=== PATIENT | male | born 1950 | race Caucasian/White ===

== ENCOUNTER 2019-02-26 13:17 | Emergency (ER) | payer MEDICARE, MEDICAID, SELFPAY ==
[2019-02-26 13:10] VITALS: BP 119/41; PULSE 60; RESP 16; TEMP 36.4; O2SAT 91
--- NOTE | 2019-02-26 13:31 | W.ED.GENAD ---
Discharge Plan Disposition Patient Disposition: HOME Condition: Stable Discharge Details Chief Complaint: Vascular Clinical Impression: Dialysis AV fistula malfunction Primary Care Provider: Nayla Valles ED Provider: Tai Carr Home Meds and New Rx's Prescriptions: Continued metolazone 2.5 MG tablet 2.5 mg PO PRN RF: 0 fluticasone propion-salmeterol [Advair Diskus] 1 EACH blister with device 1 puff Inhalation BID RF: 0 atorvastatin 80 MG tablet 80 mg PO DAILY RF: 0 ipratropium-albuterol 3 ML solution for nebulization 3 ml Inhalation Q6H PRN RF: 0 Lantus U-100 Insulin 100 UNIT/1 ML solution 50 SQ DAILY RF: 0 fexofenadine 60 MG tablet 60 mg PO DAILY RF: 0 metoprolol tartrate 100 MG tablet 100 mg PO BID RF: 0 valsartan 80 MG tablet 80 mg PO DAILY RF: 0 aspirin, buffered 325 MG tablet 325 mg PO DAILY RF: 0 clopidogrel 75 MG tablet 75 mg PO DAILY RF: 0 acetaminophen 650 MG tablet 650 mg PO Q8H PRN RF: 0 levetiracetam [Keppra] 250 MG tablet 250 mg PO BID RF: 0 sodium bicarbonate 650 MG tablet 650 mg PO BID Qty: 2 RF: 0 nitroglycerin [Nitrostat] 0.4 MG tablet, sublingual 0.4 mg Sublingual ONCE RF: 0 docusate sodium 100 MG capsule 200 mg PO DAILY RF: 0 mometasone [Nasonex] 17 GM spray,non-aerosol 2 spry NS DAILY RF: 0 sertraline [Zoloft] 50 MG tablet 50 mg PO BID RF: 0 cholecalciferol (vitamin D3) [Vitamin D3] 1,000 UNIT capsule 1,000 unit PO DAILY RF: 0 Humalog U-100 Insulin 100 UNIT/1 ML cartridge 10 u SQ DAILY RF: 0 dutasteride [Avodart] 0.5 MG capsule 0.5 mg PO DAILY RF: 0 calcium acetate 667 MG capsule 1,334 mg PO TID RF: 0 ESSENTIAL Daily 1 EACH tablet 1 ea PO DAILY RF: 0 Protonix [address] for susp in packet 40 mg PO DAILY RF: 0 nisoldipine 34 MG tablet extended release 24 hr 34 mg PO DAILY RF: 0 Discharge Instructions Additional Instructions: go to [facility] tomorrow at 750am so you can have your access for dialsyis fixed or a new access point placed if you develop high fevers or worsening difficulty breathing return to the emergency department Medical Decision Making 68 yo male with hx of esrd on dialysis /saturday and had recent repair of left arm fistula at [facility] who comes in from dialysis after fistula clotted again. He has no acute problems, denies any pain or other symptoms. He has no thrill in left arm fistula. will check potassium and consult with nephrology at [facility] labs show no acute abnormalities, spoke with Dr. Medina from nephrology at [facility] who will arrange to have another access placed tomorrow at 750am and of pt states she will be able to get him there, no acute reason for hospialization at this time. Care management met with them and they will be d/c'd at 430pm by a wheelchair van Differential Diagnosis Differential Diagnosis: fitula failure HPI General Mode of arrival: EMS. Date/Time Provider Initiated Documentation: 02/26/19 13:31. Limitations to Documentation: no limitations. Information obtained by: patient. History of Present Illness 68 year old M presents to the emergency department with the chief complaint of clotted fistula, described as moderate, and it has been constant. No relieving factors improve symptom(s), No exacerbating factors reported . Patient did receive the following treatments prior to arrival, none Related Data Home Medications Medication Instructions Recorded Confirmed ESSENTIAL Daily 1 ea PO DAILY NS 04/18/15 02/26/19 Humalog U-100 Insulin 10 u SQ DAILY NS 04/18/15 02/26/19 Lantus U-100 Insulin 50 SQ DAILY NS 04/18/15 Protonix 40 mg PO DAILY packet NS 04/18/15 02/26/19 acetaminophen 650 mg PO Q8H PRN NS 04/18/15 02/26/19 aspirin, buffered 325 mg PO DAILY NS 04/18/15 02/26/19 atorvastatin 80 mg PO DAILY tab-cap NS 04/18/15 02/26/19 calcium acetate 1,334 mg PO TID tab-cap NS 04/18/15 02/26/19 cholecalciferol (vitamin D3) 1,000 unit PO DAILY NS 04/18/15 02/26/19 [Vitamin D3] clopidogrel 75 mg PO DAILY tab-cap NS 04/18/15 02/26/19 docusate sodium 200 mg PO DAILY tab-cap NS 04/18/15 02/26/19 dutasteride [Avodart] 0.5 mg PO DAILY tab-cap NS 04/18/15 02/26/19 fexofenadine 60 mg PO DAILY NS 04/18/15 02/26/19 fluticasone propion-salmeterol 1 puff INHALATION BID disk NS 04/18/15 02/26/19 [Advair Diskus] ipratropium-albuterol 3 ml INHALATION Q6H PRN NS 04/18/15 02/26/19 levetiracetam [Keppra] 250 mg PO BID NS 04/18/15 02/26/19 metolazone 2.5 mg PO PRN tab-cap NS 04/18/15 02/26/19 metoprolol tartrate 100 mg PO BID tab-cap NS 04/18/15 02/26/19 mometasone [Nasonex] 2 spry NS DAILY spray NS 04/18/15 02/26/19 nisoldipine 34 mg PO DAILY tab-cap NS 04/18/15 02/26/19 nitroglycerin [Nitrostat] 0.4 mg SUBLINGUAL ONCE NS 04/18/15 02/26/19 sertraline [Zoloft] 50 mg PO BID tab-cap NS 04/18/15 02/26/19 sodium bicarbonate 650 mg PO BID #2 NS 04/18/15 02/26/19 valsartan 80 mg PO DAILY NS 04/18/15 02/26/19 Allergies Allergy/AdvReac Type Severity Reaction Status Date / Time adhesive tape Allergy Unverified 02/26/19 13:13 Iodinated Contrast Media Allergy Unverified 02/26/19 13:13 [Iodinated Contrast Media - IV Dye] General Stated Complaint: Vascular MADELAINE: 3 Review of Systems Review of Systems ROS Unobtainable: All systems reviewed & are unremarkable except as noted in HPI and below Constitutional Constitutional: Denies chills, Denies fever(s) and Denies weakness Eyes Eyes: Denies loss of vision ENT Ears, Nose, Mouth, and Throat: Denies change in voice Cardiovascular Cardiovascular: Denies chest pain and Denies dyspnea Respiratory Respiratory: Denies cough and Denies dyspnea Gastrointestinal Gastrointestinal: Denies abdominal pain, Denies nausea and Denies vomiting Genitourinary Genitourinary: Denies dysuria Musculoskeletal Musculoskeletal: Denies joint swelling Integumentary/Breasts Skin/Breast: Denies rash Neurologic Neurologic: Denies loss of vision and Denies weakness Endocrine Endocrine: Denies heat intolerance PFSH Medical History ASCVD (arteriosclerotic cardiovascular disease) CHF (congestive heart failure) Chronic renal insufficiency, stage V DM (diabetes mellitus) GERD (gastroesophageal reflux disease) Hyperlipidemia Hypertension Seizure disorder Surgical History (Updated 02/26/18 @ 14:37 by [employer]) Coronary Stent Tonsillectomy and adenoidectomy Vasectomy Social History Smoking/Tobacco Use Status: Former Tobacco Use Alcohol Intake: never Substance use type: does not use Exam Const General: no acute distress Orientation: alert HENIN Head: normal to inspection Ears: external ears normal General nose exam: external nose normal Mouth: moist mucous membranes Eyes General: appearance normal, both eyes and all related structures Neck Neck: normal visual inspection Resp Effort & Inspection: normal respiratory effort and able to speak in complete sentences Cardio Rate: regular rate Skin General skin exam: no rashes or lesions noted Neuro General: alert and oriented x3 Extrem General: normal to inspection Psych Mental Status: mental status grossly normal Course Vital Signs Vital signs: Vital Signs Temperature 36.4 C L 02/26/19 13:10 Pulse 60 02/26/19 13:10 Respiratory Rate 16 02/26/19 13:10 Blood Pressure 119/41 L 02/26/19 13:10 Pulse Oximetry 91 L 02/26/19 13:10 Temperature 36.4 C L 02/26/19 13:10 Temperature Source Skin 02/26/19 13:10 Pulse 60 02/26/19 13:10 Respiratory Rate 16 02/26/19 13:10 Respiratory Effort Non-Labored 02/26/19 13:10 Blood Pressure 119/41 L 02/26/19 13:10 Blood Pressure Position Sitting 02/26/19 13:10 Pulse Oximetry 91 L 02/26/19 13:10 Pain Level 0 02/26/19 13:10
[2019-02-26 13:46] LABS: Abs Immature Grans 0.04 k/cumm (0.0-0.09); Absolute Basophil Count 0.05 k/cumm (0.0-0.2); Absolute Lymphocyte Count 1.42 k/cumm (1.2-3.4); Absolute Monocyte Count 1.58 k/cumm (0.11-0.7); Basophils % 0.4; Eosinophils % 2.5; HCT 28.6 % (40.0-50.0); HGB 9.2 g/dL (13.5-17.5); Immature Grans % 0.3; Mean Corp. HGB Concentration 32.2 g/dL (32.0-36.0); Mean Corpuscular Hemoglobin 33.1 pg (27.0-33.0); Mean Corpuscular Volume 102.9 fL (80-95); Mean Platelet Volume 9.6 fL (8.0-11.0); Monocytes % 13.4; Neutrophils % 71.4; Platelet Count 177 x1000/uL (130-400); RBC 2.78 m/cumm (4.50-6.00); RBC Distribution Width 14.1 % (11.8-14.1); White Blood Cell Count 11.82 k/cumm (4.4-10.8)
[2019-02-26 13:50] LABS: Absolute Neutrophil Count 8.44 k/cumm (1.2-6.7)
[2019-02-26 14:00] LABS: ALT 18 U/L (16-63); AST 23 U/L (15-37); Albumin 2.7 g/dL (3.4-5.0); Alkaline Phosphatase 122 U/L (46-116); Anion Gap 9.5 mmol/L (3-11); BUN 63 mg/dL (7-18); Bilirubin, Total 0.3 mg/dL (0.2-1.0); CO2 26.5 mmol/L (21.0-32.0); Calcium 8.8 mg/dL (8.5-10.1); Chloride 93 mmol/L (98-107); Estimated GFR 8.51 (mL/min/1.73m2); Glucose 142 mg/dL (70-100); Magnesium 2.4 mg/dL (1.8-2.4); Potassium 5.4 mmol/L (3.5-5.1); Sodium 129 mmol/L (136-145); Total Protein 6.6 g/dL (6.4-8.2)
[2019-02-26 14:03] LABS: INR 1.1 (0.9-1.1); Prothrombin Time 11.2 sec (9.3-11.0)
[2019-02-26 14:10] LABS: CREATININE 6.52 mg/dL (0.70-1.30)
[2019-02-26 14:12] LABS: Anisocytosis 1+; Diff Comment Diff Reviewed; Macrocytosis 1+; Polychromasia Present
[2019-02-26 14:33] LABS: PTT Activated 24.9 sec (21.0-31.4)
[2019-02-26 15:25] VITALS: BP 136/54; PULSE 68; RESP 12; TEMP 36.3; O2SAT 96
--- NOTE | 2019-02-26 16:03 | CMPROGNOTE_ITS ---
- If Service Date Differs Date of service: 02/26/19 Time of Service: 16:03 Care Management Progress Note S/O: CM met with the patient and his spouse to assist with transportation home. Wilfrid was at Dialysis center today when he was emergent transferred to the Emergency Department. Wilfrid was brought in by ambulance and does not have his wheelchair here at the hospital. His spouse reports his chair was returned home with the transportation company and she has no way to bring him home. CM contacted CTS through [employer] ([place]) and was able to arrange transportation home via wheelchair van/stretcher van through [employer]. [employer] agrees to cover the cost of transport. [facility] can be contacted at [phone]. [employer] transport number is [phone]. [employer] reports they will be here to pick Wilfrid and his spouse up at 1630. Spouse was able to set up transportation for Wilfrid to return to [facility] on Saturday for dialysis at 0730. P: Wilfrid will return home tonight via wheelchair van to [facility]. Transportation has been arranged for him to return home tonight and to his appointment at [facility] in the morning. CM has updated provider and primary nurse with the plan.
--- NOTE | 2019-02-26 16:03 | PDOC.ERCMPRO ---
- If Service Date Differs Date of service: 02/26/19 Time of Service: 16:03 Care Management Progress Note S/O: CM met with the patient and his spouse to assist with transportation home. Wilfrid was at Dialysis center today when he was emergent transferred to the Emergency Department. Wilfrid was brought in by ambulance and does not have his wheelchair here at the hospital. His spouse reports his chair was returned home with the transportation company and she has no way to bring him home. CM contacted CTS through [employer] ([place] [employer]) and was able to arrange transportation home via wheelchair van/stretcher van through [employer]. [employer] agrees to cover the cost of transport. [facility] can be contacted at [phone]. [employer] transport number is [phone]. [employer] reports they will be here to pick Wilfrid and his spouse up at 1630. Spouse was able to set up transportation for Wilfrid to return to [facility] on Saturday for dialysis at 0730. P: Wilfrid will return home tonight via wheelchair van to [facility]. Transportation has been arranged for him to return home tonight and to his appointment at [facility] in the morning. CM has updated provider and primary nurse with the plan.
[2019-02-26 17:09] VITALS: BP 121/42; PULSE 55; TEMP 36.8; O2SAT 96
== END 2019-02-26 17:58 | disposition home or self-care (01) ==
PROVIDERS: Emergency Provider Emergency Medicine; PCP Internal Medicine
DX: T82.590A Other mechanical complication of surgically created arteriovenous fistula, initial encounter (principal); I50.9 Heart failure, unspecified; N18.6 End stage renal disease; I13.0 Hypertensive heart and chronic kidney disease with heart failure and stage 1 through stage 4 chronic kidney disease, or unspecified chronic kidney disease; E11.22 Type 2 diabetes mellitus with diabetic chronic kidney disease; Z99.2 Dependence on renal dialysis
CPT/HCPCS: 36415; 80053; 99283; 83735; 85025; 85610; 85730

== ENCOUNTER 2019-04-25 15:10 | Emergency (ER) | payer MEDICARE, MEDICAID, SELFPAY ==
[2019-04-25] VITALS (36 sets, daily range): BP systolic 139–176; BP diastolic 46–88; PULSE 104–124; RESP 4–30; TEMP 37.1–37.4; O2SAT 91–95
--- NOTE | 2019-04-25 15:41 | NUR.NOTE ---
Nursing Note: pt and family unaware of home meds. attempting to obtain an accurate med list.
[2019-04-25 15:50] LABS: Abs Immature Grans 0.05 k/cumm (0.0-0.09); Absolute Basophil Count 0.03 k/cumm (0.0-0.2); Absolute Lymphocyte Count 0.75 k/cumm (1.2-3.4); Absolute Monocyte Count 1.19 k/cumm (0.11-0.7); Basophils % 0.2; Eosinophils % 1.5; HCT 42.8 % (40.0-50.0); HGB 13.7 g/dL (13.5-17.5); Immature Grans % 0.3; Lactate 3.7 mmol/L (0.6-1.4); Mean Corpuscular Hemoglobin 32.2 pg (27.0-33.0); Mean Corpuscular Volume 100.7 fL (80-95); Mean Platelet Volume 9.8 fL (8.0-11.0); Monocytes % 7.9; Neutrophils % 85.1; Platelet Count 170 x1000/uL (130-400); RBC 4.25 m/cumm (4.50-6.00); RBC Distribution Width 14.9 % (11.8-14.1); White Blood Cell Count 15.07 k/cumm (4.4-10.8)
[2019-04-25] MEDS: Albuterol/Ipratropium 3 ML UPD VIAL (15:51)
[2019-04-25 15:52] LABS: Absolute Eosinophil Count 0.23 k/cumm (0.0-0.7); Absolute Neutrophil Count 12.82 k/cumm (1.2-6.7)
--- NOTE | 2019-04-25 15:52 | ED.GENADUL_ITS ---
Discharge Plan Disposition Patient Disposition: [facility] Condition: Fair Discharge Details Chief Complaint: Fever Clinical Impression: Pneumonia, Fever, ESRD (end stage renal disease) on dialysis Primary Care Provider: Nayla Valles ED Provider: Rachel Epstein Home Meds and New Rx's Prescriptions: No Action metolazone 2.5 MG tablet 2.5 mg PO PRN RF: 0 fluticasone propion-salmeterol [Advair Diskus] 1 EACH blister with device 1 puff Inhalation BID RF: 0 atorvastatin 80 MG tablet 80 mg PO DAILY RF: 0 ipratropium-albuterol 3 ML solution for nebulization 3 ml Inhalation Q6H PRN RF: 0 Lantus U-100 Insulin 100 UNIT/1 ML solution 8 unit SQ DAILY RF: 0 fexofenadine 60 MG tablet 60 mg PO DAILY RF: 0 valsartan 80 MG tablet 80 mg PO DAILY RF: 0 clopidogrel 75 MG tablet 75 mg PO DAILY RF: 0 acetaminophen 650 MG tablet 650 mg PO Q8H PRN RF: 0 levetiracetam [Keppra] 250 MG tablet 250 mg PO BID RF: 0 sodium bicarbonate 650 MG tablet 650 mg PO BID Qty: 2 RF: 0 nitroglycerin [Nitrostat] 0.4 MG tablet, sublingual 0.4 mg Sublingual ONCE RF: 0 docusate sodium 100 MG capsule 200 mg PO DAILY RF: 0 mometasone [Nasonex] 17 GM spray,non-aerosol 2 spry NS DAILY RF: 0 cholecalciferol (vitamin D3) [Vitamin D3] 1,000 UNIT capsule 1,000 unit PO DAILY RF: 0 Humalog U-100 Insulin 100 UNIT/1 ML cartridge 10 u SQ DAILY RF: 0 dutasteride [Avodart] 0.5 MG capsule 0.5 mg PO DAILY RF: 0 calcium acetate 667 MG capsule 1,334 mg PO TID RF: 0 ESSENTIAL Daily 1 EACH tablet 1 ea PO DAILY RF: 0 Protonix [address] for susp in packet 40 mg PO DAILY RF: 0 metoprolol tartrate 50 mg Tablet 50 mg PO HS RF: 0 aspirin [Aspir-81] 81 mg Tablet,Delayed Release (Dr/Ec) 81 mg PO DAILY RF: 0 nisoldipine 17 mg Tablet Extended Release 24 Hr 17 mg PO DAILY AM RF: 0 sertraline [Zoloft] 100 mg Tablet 125 mg PO DAILY AM RF: 0 trazodone 100 mg Tablet 100 mg PO HS RF: 0 sertraline [Zoloft] 25 mg Tablet 25 mg PO DAILY AM RF: 0 sevelamer carbonate [Renvela] 800 mg Tablet 800 mg PO TID RF: 0 Discharge Data Discharge Date/Time-TO BE ENTERED AT DEPARTURE: 04/25/19 19:00 Medical Decision Making <Ale Reyes DO - Last Filed: 04/26/19 08:26> 1530 -- 68-year-old male with a history of coronary artery disease, CHF, end- stage renal disease on dialysis, diabetes, GERD, hypertension, hyperlipidemia who presents from dialysis for fever and chills today. Per dialysis temp 97 and 98. Patient does also admit to a congested cough for the past 4 days. Temp on arrival 98.8. Heart rate tachycardic in the 110s. Oxygen saturation low 90s on room air. He is pleasant and appears nontoxic. He has scattered wheezing throughout. EKG notes a rate of 108, sinus with minimal less than [address] depression in 1, V 5 and V6 but no acute ST elevation. Differential diagnosis includes pneumonia, acute CHF, acute COPD exacerbation, UTI. Will place an IV, small bolus IV fluids, screening labs, lactate, blood cultures, urinalysis as well as chest x-ray and give a DuoNeb and reassess. 1600 --Case endorsed to EDGRADO Ibrahim to follow-up on labs and imaging and final disposition. ECG Data Attestation: I personally reviewed and interpreted this ECG (s) as follows: Interpretation: Rate of 108, sinus, questionable less than [address] depression in 2, V5 through V6. No acute ST elevation. AL 130. QTc 440. QRS 86. <EDGARDO Weber - Last Filed: 04/25/19 19:04> Care transition myself from Dr. Reyes. Please see her initial note and presentation for details. Care transition myself with imaging and labs pending. In brief, patient with complex medical history, received dialysis today, presented for evaluation experiencing fevers and chills. Patient does report that he has had a cough and chest congestion over the past 4 days denies any shortness of breath or chest discomfort. Denies any pain. He is scheduled to have a new right-sided fistula performed on Saturday at [facility]. He still does make small amount of urine. Patient dialysis schedule is Saturday, , Saturday. Contacted by the lab with lactate of 3.7. Patient is received a 250 bolus. White count is 15. Potassium 4.4. Creatinine 4.5. Alk phos elevated at 187. Chest x-ray reviewed by myself, I am concerned for possible pneumonia. Patient I discussed inpatient care, particularly given his lactate and he refuses, wis hes to have outpatient management. He is agreeable to one-time dosing of IV levofloxacin. I will discuss this further with inspector cold working. Patient is clinically appropriate and able to make sound decisions at this point. Discussed the case with Dr. Burch who reiterates my concerns with patient admission with the elevated lactate. He does agree with 750 mg dosing of levofloxacin initially followed by 48-hour dosing. I discussed these concerns with nephrology with the patient he is now agreeable to admission. The patient is a dialysis patient, I will consult with [facility] regarding transfer to their facility. Consulted with Dr. Steinberg at [facility]. We discussed +/- of admission. Mortality rate associated with [facility] patients elevated lactate is what has me most concerned. He agrees to admission, awaiting bed placement for transfer. Patient transferred to [facility] via EMS. HPI <Ale Reyes DO - Last Filed: 04/26/19 08:26> General Mode of arrival: wheelchair . Date/Time Provider Initiated Documentation: 04/25/19 15:11 . Limitations to Documentation: no limitations . Information obtained by: patient . HPI Narrative: Patient is a 68-year-old male with a history of coronary artery disease, CHF, end-stage renal disease on dialysis, diabetes, GERD, hypertension and seizures presents from dialysis for evaluation of fever and chills. Called dialysis center and they state his temperature was 97 and 98 but he had chills. was unaware of a fever. She does state that patient has had a cough with chest congestion over the past 4 da ys. Patient has a history of COPD but denies any new shortness of breath or chest pain. He states his appetite has been good. He is still able to make urine. He has been on dialysis for several years and goes Saturday, and Saturday. He was able to finish his entire dialysis session today. He has been receiving dialysis through central line catheter in chest. He has a left arm fistula which states they are no longer using with plan for new placement of a fistula in the right arm this Saturday at [facility]. Related Data Home Medications Medication Instructions Recorded Confirmed ESSENTIAL Daily 1 ea PO DAILY NS 04/18/15 02/26/19 Humalog U-100 Insulin 10 u SQ DAILY NS 04/18/15 04/25/19 Lantus U-100 Insulin 8 unit SQ DAILY NS 04/18/15 04/25/19 Protonix 40 mg PO DAILY packet NS 04/18/15 04/25/19 acetaminophen 650 mg PO Q8H PRN NS 04/18/15 04/25/19 atorvastatin 80 mg PO DAILY tab-cap NS 04/18/15 04/25/19 calcium acetate 1,334 mg PO TID tab-cap NS 04/18/15 04/25/19 cholecalciferol (vitamin D3) 1,000 unit PO DAILY NS 04/18/15 04/25/19 [Vitamin D3] clopidogrel 75 mg PO DAILY tab-cap NS 04/18/15 04/25/19 docusate sodium 200 mg PO DAILY tab-cap NS 04/18/15 04/25/19 dutasteride [Avodart] 0.5 mg PO DAILY tab-cap NS 04/18/15 02/26/19 fexofenadine 60 mg PO DAILY NS 04/18/15 02/26/19 fluticasone propion-salmeterol 1 puff INHALATION BID disk NS 04/18/15 04/25/19 [Advair Diskus] ipratropium-albuterol 3 ml INHALATION Q6H PRN NS 04/18/15 04/25/19 levetiracetam [Keppra] 250 mg PO BID NS 04/18/15 04/25/19 metolazone 2.5 mg PO PRN tab-cap NS 04/18/15 02/26/19 mometasone [Nasonex] 2 spry NS DAILY spray NS 04/18/15 02/26/19 nitroglycerin [Nitrostat] 0.4 mg SUBLINGUAL ONCE NS 04/18/15 04/25/19 sodium bicarbonate 650 mg PO BID #2 NS 04/18/15 02/26/19 valsartan 80 mg PO DAILY NS 04/18/15 02/26/19 aspirin [Aspir-81] 81 mg PO DAILY 04/25/19 04/25/19 metoprolol tartrate 50 mg PO HS 04/25/19 04/25/19 nisoldipine 17 mg PO DAILY AM 04/25/19 04/25/19 sertraline [Zoloft] 25 mg PO DAILY AM 04/25/19 04/25/19 sertraline [Zoloft] 125 mg PO DAILY AM 04/25/19 04/25/19 sevelamer carbonate [Renvela] 800 mg PO TID 04/25/19 04/25/19 trazodone 100 mg PO HS 04/25/19 04/25/19 Allergies Allergy/AdvReac Type Severity Reaction Status Date / Time adhesive tape Allergy Unverified 04/25/19 16:12 Iodinated Contrast Media Allergy Unverified 04/25/19 16:12 [Iodinated Contrast Media - IV Dye] General Stated Complaint: Fever MADELAINE: 3 Review of Systems <Ael Reyes DO - Last Filed: 04/26/19 08:26> All systems reviewed & are unremarkable except as noted in HPI and below Constitutional Constitutional: Reports as per HPI, Reports chills and Reports fever(s) Eyes Eyes: Denies blurry vision ENT Ears, Nose, Mouth, and Throat: Denies dizziness, Denies sore throat and Denies throat swelling Cardiovascular Cardiovascular: Denies chest pain and Denies dyspnea Respiratory Respiratory: Reports cough and Denies dyspnea Gastrointestinal Gastrointestinal: Denies abdominal pain, Denies diarrhea and Denies vomiting Genitourinary Genitourinary: Denies hematuria and Denies dysuria Musculoskeletal Musculoskeletal: Denies back pain and Denies numbness Integumentary/Breasts Skin/Breast: Denies lesions and Denies rash Neurologic Neurologic: Denies dizziness, Denies focal weakness and Denies numbness Allergic/Immunologic Allergic/Immunologic: Denies throat swelling PFSH <Ale Reyes DO - Last Filed: 04/26/19 08:26> Medical History ASCVD (arteriosclerotic cardiovascular disease) CHF (congestive heart failure) Chronic renal insufficiency, stage V DM (diabetes mellitus) GERD (gastroesophageal reflux disease) Hyperlipidemia Hypertension Seizure disorder Surgical History Coronary Stent Tonsillectomy and adenoidectomy Vasectomy Social History Smoking/Tobacco Use Status: Former Tobacco Use Alcohol Intake: never Substance use type: does not use Do you feel safe at home: Yes Do you feel safe in your relationship?: Yes Additional Social history: pt lives at home with his Exam <Ale Reyes DO - Last Filed: 04/26/19 08:26> Const General: cooperative, no acute distress and ill appearing chronically HENMT Head: normal to inspection Face and sinus: normal facial exam Eyes General: appearance normal, both eyes and all related structures EOM: EOM intact bilaterally Neck Neck: normal visual inspection and No submandibular swelling Lymphatic: no lymphadenopathy noted Chest Chest: normal inspection of the chest, no tenderness and other (central line catheter noted left upper chest.) Resp Effort & Inspection: normal respiratory effort and able to speak in complete sentences Auscultation: wheezes scattered wheezes Cardio Rate: tachycardic Rhythm: regular rhythm GI Inspection: normal to inspection, distended and obesity Palpation: soft, not firm, not rigid and nontender Auscultation: normal bowel sounds Back/Spine/Pelvis Thoracic/Lumbar Spine: thoracic and lumbar spine normal to inspection Skin General skin exam: no rashes or lesions noted Neuro General: alert, awake and oriented x3 Cognition: normal cognition Speech: speech normal Motor: muscle tone normal throughout Sensory Exam: no sensory deficits noted Extrem General: full ROM Other: Right AKA. No left lower extremity edema. Pulsatile fistula left AC fossa. Psych Appearance: grossly normal Mental Status: mental status grossly normal Speech and Movement: speech and movement normal Affect: normal affect Course <Ale Reyes DO - Last Filed: 04/26/19 08:26> Vital Signs Vital signs: Vital Signs Temperature 98.8 F 04/25/19 15:18 Pulse 112 H 04/25/19 15:18 Respiratory Rate 22 04/25/19 15:18 Blood Pressure 140/66 04/25/19 15:18 Pulse Oximetry 93 L 04/25/19 15:18 Temperature 98.8 F 04/25/19 15:18 Temperature Source Tympanic 04/25/19 15:18 Pulse 112 H 04/25/19 15:18 Respiratory Rate 22 04/25/19 15:18 Respiratory Effort 04/25/19 15:28 Blood Pressure 140/66 04/25/19 15:18 Blood Pressure Position Sitting 04/25/19 15:18 Pulse Oximetry 95 04/25/19 15:51 Oxygen Delivery Method Room Air 04/25/19 15:51 Oxygen Flow Rate 0 04/25/19 15:51 Lab/Test Results Lab/Test Results: Laboratory Tests Range/Units 04/25/19 15:42 Lactate (0.6-1.4) mmol/L 3.7 H* Sign Out <Ale Reyes DO - Last Filed: 04/26/19 08:26> Sign Out Data: Sign Out Comment: Case endorsed to follow-up on labs, imaging and final disposition. Last updated by Ale Reyes DO at 04/25/19 16:05
[2019-04-25 16:06] LABS: ALT 19 U/L (16-63); AST 20 U/L (15-37); Albumin 3.4 g/dL (3.4-5.0); Alkaline Phosphatase 187 U/L (46-116); BUN 38 mg/dL (7-18); Bilirubin, Total 0.4 mg/dL (0.2-1.0); Calcium 9.5 mg/dL (8.5-10.1); Chloride 98 mmol/L (98-107); Glucose 233 mg/dL (74-106); Magnesium 2.3 mg/dL (1.8-2.4); Potassium 4.4 mmol/L (3.5-5.1); Sodium 138 mmol/L (136-145); Total Protein 8.1 g/dL (6.4-8.2)
[2019-04-25 16:08] LABS: Estimated GFR 13.06 (mL/min/1.73m2); Troponin I < 0.05 ng/Ml (<0.06)
[2019-04-25] MEDS: methylPREDNISolone SUCC 125 MG VIAL IVP (16:09)
[2019-04-25] MEDS: Normal Saline 250 ML IV (16:14)
--- NOTE | 2019-04-25 16:22 | DI.RAD_ITS ---
EXAM: XR CHEST 2V PA LATERAL INDICATION: cough, fever, chills, r/o pneumonia. COMPARISON: No exams were available for comparison TECHNIQUE: 2D digital imaging was performed. FINDINGS: The lungs are not well inflated on either view. The patient is status post CABG. There is a double- lumen catheter in place. There is a small right pleural effusion. There are increased densities at both lung bases which could represent pneumonia versus atelectasis. IMPRESSION: Limited exam. Bibasilar atelectasis versus pneumonia.
--- NOTE | 2019-04-25 16:39 | DI.VRAD_ITS ---
PROCEDURE INFORMATION: Exam: XR Chest, 2 Views Exam date and time: 04/25/2019 4:27 PM Age: 68 years old Clinical history: Other: Cough, fever, chills, R/O pneumonia TECHNIQUE: Imaging protocol: XR of the chest Views: 2 views. COMPARISON: No relevant prior studies available. FINDINGS: Tubes, catheters and devices: Left subclavian central line in place with the tip near the SVC/RA junction. Lungs: Low lung volumes. Bilateral infiltrates more concentrated at the lung bases. Pleural space: Right pleural effusion. Heart/Mediastinum: Unremarkable. No cardiomegaly. Bones/joints: Possible right lateral rib fractures. Sternotomy wires in place. IMPRESSION: 1. Bilateral pneumonia. 2. Right pleural effusion. Dictated and Authenticated by: Jolly Lnadon MD. Ordering:JOEL Aguilera MD
[2019-04-25] MEDS: levoFLOXacin 750 MG/150 ML BAG 100 MG IVPB (17:09)
== END 2019-04-25 19:00 | disposition short-term general hospital (02) ==
PROVIDERS: Physician Assistant; Emergency Provider Physician Assistant; PCP Internal Medicine
DX: J18.9 Pneumonia, unspecified organism (principal); R50.9 Fever, unspecified; N18.6 End stage renal disease; Z99.2 Dependence on renal dialysis; E11.22 Type 2 diabetes mellitus with diabetic chronic kidney disease; I13.2 Hypertensive heart and chronic kidney disease with heart failure and with stage 5 chronic kidney disease, or end stage renal disease; I50.9 Heart failure, unspecified; J44.9 Chronic obstructive pulmonary disease, unspecified; Z87.891 Personal history of nicotine dependence; Z79.4 Long term (current) use of insulin
CPT/HCPCS: 36410; 36415; 80053; 87040; 87449; 93005; 94640; 96361; 96365; 96366; 99285; 71046; 81003; 83605; 83735; 84484; 85025; 93010; J1956; J2930; J7620

== ENCOUNTER 2020-08-16 14:41 | Emergency (ER) | payer MEDICARE, MEDICAID, SELFPAY ==
[2020-08-16 14:57] VITALS: BP 130/51; PULSE 105; RESP 22; TEMP 36.9; O2SAT 94
--- NOTE | 2020-08-16 15:15 | DI.RAD_ITS ---
EXAM: XR PORTABLE CHEST AP CLINICAL HISTORY: cough, recent pneumonia TECHNIQUE: COMPARISON: CR,XR XR CHEST 2V PA LATERAL from 04/25/2019 FINDINGS: Note is again made of a double lumen left subclavian catheter in position, the tip of which lies near junction of SVC and right atrium. There is cardiomegaly. There is no gross interval change in appe arance of the lungs in comparison with examination of April 2019 pulmonary scarring most likely. No definite new focal consolidation. IMPRESSION: Chronic pulmonary changes, no gross acute process. Cardiomegaly again noted. RADIATION DOSE DELIVERED: Total DLP
[2020-08-16 16:02] LABS: Bilirubin Negative (Negative); Blood Trace-intact (Negative); Clarity Clear (Clear); Glucose Negative (Negative); Ketones Negative (Negative); Leukocyte Esterase Negative (Negative); Nitrite Negative (Negative); Specific Gravity 1.025 (1.005-1.025); Urobilinogen 0.2 EU/dL (Up TO 0.2)
[2020-08-16 16:11] LABS: Bacteria Many HPF (Negative); C & S Indicated? No/Sq. Contamination; Casts Negative LPF (Negative); Crystals Negative HPF (Negative); Epithelial Cells Many HPF (Negative); Mucus Negative (Negative); RBC Negative HPF (0-2)
--- NOTE | 2020-08-16 16:17 | W.ED.GENAD ---
Discharge Plan Disposition Patient Disposition: HOME Condition: Good Discharge Details Clinical Impression: Chills, Leukocytosis Primary Care Provider: Nayla Valles ED Provider: Jonny Vick Home Meds and New Rx's Prescriptions: Continued metolazone 2.5 MG tablet 2.5 mg PO PRN RF: 0 fluticasone propion-salmeterol [Advair Diskus] 1 EACH blister with device 1 puff Inhalation BID RF: 0 atorvastatin 80 MG tablet 80 mg PO DAILY RF: 0 ipratropium-albuterol 3 ML solution for nebulization 3 ml Inhalation Q6H PRN RF: 0 Lantus U-100 Insulin 100 UNIT/1 ML solution 8 unit SQ DAILY RF: 0 fexofenadine 60 MG tablet 60 mg PO DAILY RF: 0 valsartan 80 MG tablet 80 mg PO DAILY RF: 0 clopidogrel 75 MG tablet 75 mg PO DAILY RF: 0 acetaminophen 650 MG tablet 650 mg PO Q8H PRN RF: 0 levetiracetam [Keppra] 250 MG tablet 250 mg PO BID RF: 0 sodium bicarbonate 650 MG tablet 650 mg PO BID Qty: 2 RF: 0 nitroglycerin [Nitrostat] 0.4 MG tablet, sublingual 0.4 mg Sublingual ONCE RF: 0 docusate sodium 100 MG capsule 200 mg PO DAILY RF: 0 mometasone [Nasonex] 17 GM spray,non-aerosol 2 spry NS DAILY RF: 0 cholecalciferol (vitamin D3) [Vitamin D3] 1,000 UNIT capsule 1,000 unit PO DAILY RF: 0 Humalog U-100 Insulin 100 UNIT/1 ML cartridge 10 u SQ DAILY RF: 0 dutasteride [Avodart] 0.5 MG capsule 0.5 mg PO DAILY RF: 0 calcium acetate(phosphat bind) 667 MG capsule 1,334 mg PO TID RF: 0 ESSENTIAL Daily 1 EACH tablet 1 ea PO DAILY RF: 0 Protonix [address] for susp in packet 40 mg PO DAILY RF: 0 metoprolol tartrate 50 mg Tablet 50 mg PO HS RF: 0 aspirin [Aspir-81] 81 mg Tablet,Delayed Release (Dr/Ec) 81 mg PO DAILY RF: 0 nisoldipine 17 mg Tablet Extended Release 24 Hr 17 mg PO DAILY AM RF: 0 sertraline [Zoloft] 100 mg Tablet 125 mg PO DAILY AM RF: 0 trazodone 100 mg Tablet 100 mg PO HS RF: 0 sertraline [Zoloft] 25 mg Tablet 25 mg PO DAILY AM RF: 0 sevelamer carbonate [Renvela] 800 mg Tablet 800 mg PO TID RF: 0 Discharge Instructions Instructions: Leukocytosis (ED) Additional Instructions: At this time your chest x-ray shows no new pneumonia. Your labs are reassuring aside for your elevated white count. As we have discussed together and with [facility] at this time is appropriate to go home however it is extremely important that you monitor your symptoms closely and if you develop any repeat chills, fever, worsening cough or shortness of breath you need to return immediately for reassessment. If you notice any worsening of your symptoms, or any new symptoms such as vomiting, diarrhea, fever, chills, shortness of breath, chest pain, numbness, weakness, or fainting , please return immediately to the emergency department for reevaluation. Please follow up with your primary care provider as soon as possible for reassessment and reevaluation. As always, it was a pleasure participating in your medical care today. Referrals: Nayla Valles [Primary Care Provider] - Medical Decision Making 70-year-old male with a past medical history of diabetes, lower extremity amputation, seizure disorder, hypertension, high cholesterol, chronic renal disease on dialysis, congestive heart failure who presents today for fever and chills. He was down at dialysis today when he experienced chills, and had an elevated temperature. However upon his arrival here he had no fever. The patient was recently discharged from [facility] a week ago, he had infection, pneumonia, and metabolic encephalopathy at that time. He was discharged with Augmentin and finished taking that a few days ago. He does admit to a persistent cough after discharge but denies any significant worsening of this. He denies any chest pain shortness of breath no abdominal pain. He did have one episode of vomiting earlier but this was isolated on the phone. Patient denies any other complaints. No other modifying factors. He states currently he feels fine. Exam demonstrates mild crackles in the bases for the lungs but no other significant abnormalities. Patient's blood pressure stable, heart rate normal on its own. We will evaluate for infectious etiologies, get a chest x-ray, Covid swab, basic labs and blood cultures and lactate. Monitor closely and reassess. If the patient does require admission he will not be a candidate for admission here secondary to his dialysis needs. 7:30 PM There is a prolonged delay in the lab secondary to hemolysis, and other complicating factors. Labs have finally returned, patient does have a white count of 19 with a left shift which is elevated compared to his discharge from [facility]. However the lactate is only 1.5. Electrolytes are unremarkable. Creatinine is expectedly high at 3.7. Urinalysis shows no evidence of infection. Chest x-ray read by radiology shows no acute process, no evidence of new infiltrate. The patient states that he feels well, and does not feel ill. He remains with a normal heart rate and blood pressure here, he remains afebrile in the ED. The white count is probably the most atypical component. We will reach out to [facility] as he was recently discharged. Patient has expressed interest in going home. 9 PM [facility] the [facility]. We reviewed the labs, imaging, urinalysis work-up. With the patient's current status, he has notable hemodynamic stability, and no clear source of infectious etiology and for that matter no clear source of current infection that would be detectable in conjunction with the patient generalized state of feeling well and feeling like he can go home, however it does feel that this would be a reasonable course as well. Respecting the patient's wishes, and in the current clinical context with no clear evidence of significant infectious etiology patient will be discharged home. Spent a long time discussing with the patient and his significant other the importance of close monitoring for clinical signs or symptoms that would be concerning for infection, as well as for symptoms for which to immediately return. In addition to this the blood cultures will be followed and patient will be contacted by medical staff if they do return positive. Patient will be discharged home. I have extensively reviewed the treatment plan and discharge instructions with the patient and their family. I have addressed all patient concerns at this time. The patient and family was made aware of what symptoms to monitor for that would warrant a return to the emergency department. Discussed the plan with the patient and family, they demonstrate verbal understanding and agreement with our assessment and plan at this time. The documentation in this chart was dictated using [employer] dictation software. Please excuse any dictation errors. FINDINGS: Note is again made of a double lumen left subclavian catheter in position, the tip of which lies near junction of SVC and right atrium. There is cardiomegaly. There is no gross interval change in appearance of the lungs in comparison with examination of April 2019 pulmonary scarring most likely. No definite new focal consolidation. IMPRESSION: Chronic pulmonary changes, no gross acute process. Cardiomegaly again noted. HPI General Date/Time Provider Initiated Documentation: 08/16/20 15:02. HPI Narrative: 70-year-old male with a past medical history of diabetes, lower extremity amputation, seizure disorder, hypertension, high cholesterol, chronic renal disease on dialysis, congestive heart failure who presents today for fever and chills. He was down at dialysis today when he experienced chills, and had an elevated temperature. However upon his arrival here he had no fever. The patient was recently discharged from [facility] a week ago, he had infection, pneumonia, and metabolic encephalopathy at that time. He was discharged with Augmentin and finished taking that a few days ago. He does admit to a persistent cough after discharge but denies any significant worsening of this. He denies any chest pain shortness of breath no abdominal pain. He did have one episode of vomiting earlier but this was isolated on the phone. Patient denies any other complaints. No other modifying factors. He states currently he feels fine. Related Data Home Medications Medication Instructions Recorded Confirmed ESSENTIAL Daily 1 ea PO DAILY NS 04/18/15 02/26/19 Humalog U-100 Insulin 10 u SQ DAILY NS 04/18/15 04/25/19 Lantus U-100 Insulin 8 unit SQ DAILY NS 04/18/15 04/25/19 Protonix 40 mg PO DAILY packet NS 04/18/15 04/25/19 acetaminophen 650 mg PO Q8H PRN NS 04/18/15 04/25/19 atorvastatin 80 mg PO DAILY tab-cap NS 04/18/15 04/25/19 calcium acetate(phosphat bind) 1,334 mg PO TID tab-cap NS 04/18/15 04/25/19 cholecalciferol (vitamin D3) 1,000 unit PO DAILY NS 04/18/15 04/25/19 [Vitamin D3] clopidogrel 75 mg PO DAILY tab-cap NS 04/18/15 04/25/19 docusate sodium 200 mg PO DAILY tab-cap NS 04/18/15 04/25/19 dutasteride [Avodart] 0.5 mg PO DAILY tab-cap NS 04/18/15 02/26/19 fexofenadine 60 mg PO DAILY NS 04/18/15 02/26/19 fluticasone propion-salmeterol 1 puff INHALATION BID disk NS 04/18/15 04/25/19 [Advair Diskus] ipratropium-albuterol 3 ml INHALATION Q6H PRN NS 04/18/15 04/25/19 levetiracetam [Keppra] 250 mg PO BID NS 04/18/15 04/25/19 metolazone 2.5 mg PO PRN tab-cap NS 04/18/15 02/26/19 mometasone [Nasonex] 2 spry NS DAILY spray NS 04/18/15 02/26/19 nitroglycerin [Nitrostat] 0.4 mg SUBLINGUAL ONCE NS 04/18/15 04/25/19 sodium bicarbonate 650 mg PO BID #2 NS 04/18/15 02/26/19 valsartan 80 mg PO DAILY NS 04/18/15 02/26/19 aspirin [Aspir-81] 81 mg PO DAILY 04/25/19 04/25/19 metoprolol tartrate 50 mg PO HS 04/25/19 04/25/19 nisoldipine 17 mg PO DAILY AM 04/25/19 04/25/19 sertraline [Zoloft] 25 mg PO DAILY AM 04/25/19 04/25/19 sertraline [Zoloft] 125 mg PO DAILY AM 04/25/19 04/25/19 sevelamer carbonate [Renvela] 800 mg PO TID 04/25/19 04/25/19 trazodone 100 mg PO HS 04/25/19 04/25/19 Allergies Allergy/AdvReac Type Severity Reaction Status Date / Time adhesive tape Allergy Unverified 08/16/20 15:07 Iodinated Contrast Media Allergy Unverified 08/16/20 15:07 [Iodinated Contrast Media - IV Dye] General Stated Complaint: Fever MADELAINE: 3 Review of Systems All systems reviewed & are unremarkable except as noted in HPI and below [facility] Medical History (Updated 08/16/20 @ 20:51 by Jonny Vick DO) ASCVD (arteriosclerotic cardiovascular disease) CHF (congestive heart failure) Chronic renal insufficiency, stage V DM (diabetes mellitus) GERD (gastroesophageal reflux disease) Hyperlipidemia Hypertension Seizure disorder Surgical History Coronary Stent Tonsillectomy and adenoidectomy Vasectomy Social History Smoking/Tobacco Use Status: Former Tobacco Use Smoking risk assessment performed?: Yes Alcohol Intake: never Substance use type: does not use Do you feel safe at home: Yes Do you feel safe in your relationship?: Yes Additional Social history: pt lives at home with his Exam Narrative Exam Narrative: 1.Const: Well-nourished, Well-developed, appearing stated age 2.Eyes: PERRL, no conjunctival injection, and symmetrical lids. 3.ENT: Atraumatic external nose and ears. Moist MM. Neck: Symmetric, trachea midline, No thyromegaly. 4.CVS: +S1/S2, No murmurs or gallops. Peripheral pulses 2+ and equal in all extremities. Brisk capillary refill in all extremities. 5.RESP: Unlabored respiratory effort. Minimal crackles in the bases bilaterally. No wheezes or rhonchi. 6.GI: Soft, Nontender/Nondistended, No hepatosplenomegaly. No guarding or rebound. 7.MSK: Normocephalic/Atraumatic, Extremities w/o deformity or ttp. Bilateral lower extremity amputee. 8.Skin: Warm, Dry. No rashes or lesions. 9.Neuro: security compliance specialist II-XII grossly intact. Sensation grossly intact, no focal neurologic deficits. 10.Psych: (AAO) x3. Appropriate mood and affect Course Vital Signs Vital signs: Vital Signs Temperature 36.9 C 08/16/20 14:57 Pulse 105 H 08/16/20 14:57 Respiratory Rate 22 08/16/20 14:57 Blood Pressure 130/51 L 08/16/20 14:57 Pulse Oximetry 94 08/16/20 14:57 Temperature 36.9 C 08/16/20 14:57 Temperature Source Skin 08/16/20 14:57 Pulse 105 H 08/16/20 14:57 Respiratory Rate 22 08/16/20 14:57 Blood Pressure 130/51 L 08/16/20 14:57 Blood Pressure Position Sitting 08/16/20 14:57 Pulse Oximetry 94 08/16/20 14:57 Oxygen Delivery Method Nasal Cannula 08/16/20 14:57 Oxygen Flow Rate 2 08/16/20 14:57 Pain Level 0 08/16/20 14:57 Comment 08/16/20 14:57 Lab/Test Results Lab/Test Results: 08/16/20 15:19 Blood Blood Culture - Pending 08/16/20 15:19 Blood Blood Culture - Pending Laboratory Tests Range/Units 08/16/20 08/16/20 15:40 15:40 Urine Color (Yellow) Yellow Urine Clarity (Clear) Clear Urine pH (5-8) 5.0 Ur Specific [place] (1.005-1.025) 1.025 Urine Protein (Negative) mg/dL >=300 H Urine Ketones (Negative) mg/dL Negative Urine Blood (Negative) Trace-intact H Urine Nitrite (Negative) Negative Urine Bilirubin (Negative) Negative Urine Urobilinogen (Up TO 0.2) EU/dL 0.2 Ur Leukocyte Esterase (Negative) Negative Urine RBC (0-2) HPF Negative Urine WBC (0-5) HPF 5-10 Ur Epithelial Cells (Negative) HPF Many Urine Crystals (Negative) HPF Negative Urine Bacteria (Negative) HPF Many Urine Casts (Negative) LPF Negative Urine Mucus (Negative) Negative Urine Other (Negative) Many yeast Ur Culture Indicated? No/sq. contamination Urine Glucose (Negative) mg/dL Negative COVID-19 Source Nasopharyx
[2020-08-16 16:37] LABS: COVID-19 PCR Negative (Negative)
[2020-08-16 18:28] LABS: ALT 13 U/L (16-63); AST 16 U/L (15-37); Albumin 3.4 g/dL (3.4-5.0); Alkaline Phosphatase 110 U/L (46-116); Anion Gap 9.7 mmol/L (3-11); BUN 45 mg/dL (7-18); Bilirubin, Total 0.7 mg/dL (0.2-1.0); CO2 31.3 mmol/L (21.0-32.0); Calcium 9.9 mg/dL (8.5-10.1); Chloride 101 mmol/L (98-107); Estimated GFR 16.28 (mL/min/1.73m2); Glucose 118 mg/dL (74-106); Potassium 3.6 mmol/L (3.5-5.1); Sodium 142 mmol/L (136-145); Total Protein 8.1 g/dL (6.4-8.2)
[2020-08-16 18:30] LABS: CREATININE 3.7 mg/dL (0.70-1.30)
[2020-08-16 18:55] LABS: Abs Immature Grans 0.08 10^3/uL (0.0-0.06); Absolute Eosinophil Count 0.04 10^3/uL (0.0-0.7); Absolute Lymphocyte Count 1.01 10^3/uL (1.2-3.4); Absolute Neutrophil Count 17.04 10^3/uL (1.2-6.7); Basophils % 0.4; Eosinophils % 0.2; HCT 37.2 % (40.0-50.0); HGB 11.7 g/dL (13.5-17.5); Immature Grans % 0.4; Lymphocytes % 5.2; MCH 33.8 pg (27.0-33.0); MCHC 31.5 % (32.0-36.0); MCV 107.5 fL (80-95); Neutrophils % 87.8; Nucleated RBC 0 %; Platelet Count 155 10^3/uL (130-400); RBC 3.46 10^6/uL (4.36-5.78); RDW 15.7 % (11.8-14.1); RDW-SD 62.6 fL; WBC 19.41 10^3/uL (4.4-10.8)
[2020-08-16 19:00] LABS: Lactate 1.5 mmol/L (0.6-1.4)
[2020-08-16 19:04] LABS: Absolute Basophil Count 0.08 10^3/uL (0.0-0.2); Absolute Monocyte Count 1.16 10^3/uL (0.1-0.8)
[2020-08-16 19:07] LABS: Diff Comment RBC Morph Reviewed; Macrocytosis 3+
== END 2020-08-16 22:28 | disposition home or self-care (01) ==
PROVIDERS: Emergency Provider Student in an Organized Health Care Education/Training Program; PCP Internal Medicine
DX: D72.829 Elevated white blood cell count, unspecified (principal); I12.0 Hypertensive chronic kidney disease with stage 5 chronic kidney disease or end stage renal disease; N18.6 End stage renal disease; Z99.2 Dependence on renal dialysis; E11.22 Type 2 diabetes mellitus with diabetic chronic kidney disease; Z03.818 Encounter for observation for suspected exposure to other biological agents ruled out
CPT/HCPCS: 36415; 80053; 87040; 87635; 99284; 71045; 81003; 81015; 83605; 85025; 87086; 99285

== ENCOUNTER 2021-01-17 13:41 | Inpatient (IN) | payer MEDICARE, MEDICAID, SELFPAY ==
[2021-01-17] VITALS (95 sets, daily range): BP systolic 98–146; BP diastolic 42–97; PULSE 71–100; RESP 10–36; TEMP 36.5–37.2; O2SAT 85–100
--- NOTE | 2021-01-17 13:30 | RT.EKG_ITS ---
APPROVED REPORT Exam: Resting ECG Reason for Exam: unresponsive Patient Location: E HR:71 bpm ECG Measurements Heart Rate 71 AXIS AK 167 P 79 QRSd 111 QRS 70 QT 432 T 67 QTc 470 Conclusion Sinus rhythm Probable left atrial enlargement..
--- NOTE | 2021-01-17 13:45 | DI.CT_ITS ---
Exam(s) CT HEAD WO EXAM: CT HEAD WO CLINICAL HISTORY: unresponsive at diaysis. TECHNIQUE: Imaging Protocol: Axial computed tomography images with coronal and sagittal reformatted images were created and reviewed COMPARISON: No exams were available for comparison FINDINGS: Ventricles and Extra axial spaces: Enlarged lateral ventricles. Hemorrhage: None. Cerebral parenchyma: moderate atrophy. No mass or acute infarct visible. Midline shift: None. Brainstem/Cerebellum: Normal. Calvarium: Normal. Visualized Paranasal sinuses/Mastoids: Minimal mucous in the sphenoid sinuses. Soft Tissues: Unremarkable. IMPRESSION: Atrophy. No acute abnormality. RADIATION DOSE DELIVERED: 824.68mGy.cm Total DLP DATA REPOSITORY: All CT scans at this facility are submitted to the National Radiology Data Registry (NRDR) Dose Index Registry (DIR) with the [employer] (ACR). RADIATION OPTIMIZATION: All CT scans at this facility use at least one of these dose optimization te chniques: automated exposure control; mA and/or kV adjustment per patient size (includes targeted exa ms where dose is matched to clinical indication); or iterative reconstruction.
--- NOTE | 2021-01-17 13:45 | DI.RAD_ITS ---
Exam(s) XR PORTABLE CHEST AP EXAM: XR PORTABLE CHEST AP CLINICAL HISTORY: ms change, rhonchi TECHNIQUE: 2D digital imaging was performed. COMPARISON: CR,XR XR CHEST 2V PA LATERAL from 04/25/2019 CR XR PORTABLE CHEST AP from 08/16/2020. FINDINGS: Exam is limited by semi-upright positioning and underpenetration. The right costophrenic angle has b een [place] from view. There is stable cardiomegaly. A right subclavian catheter is unchanged in position. Sternal wires a nd mediastinal clips are noted. areas of increased density are again noted at the right lower lobe as well as a linear area in the left mid lung. Superimposed pneumonia cannot be excluded. IMPRESSION: Extremely limited exam. Increased densities at the lung bases which could indicate pneumonia. Clini will correlation is recommended. DATA REPOSITORY: RADIATION DOSE DELIVERED:
--- NOTE | 2021-01-17 13:49 | W.ED.GENAD ---
Discharge Plan Disposition Patient Disposition: [facility] INPATIENT Condition: Improving Discharge Details Clinical Impression: Pneumonia, Hypercarbia, Altered mental status Primary Care Provider: Nayla Valles ED Provider: Lalito Patterson Home Meds and New Rx's Prescriptions: No Action metolazone 2.5 MG tablet 2.5 mg PO PRN RF: 0 fluticasone propion-salmeterol [Advair Diskus] 1 EACH blister with device 1 puff Inhalation BID RF: 0 atorvastatin 80 MG tablet 80 mg PO DAILY RF: 0 ipratropium-albuterol 3 ML solution for nebulization 3 ml Inhalation Q6H PRN RF: 0 Lantus U-100 Insulin 100 UNIT/1 ML solution 2 unit SQ DAILY RF: 0 fexofenadine 60 MG tablet 60 mg PO DAILY RF: 0 valsartan 80 MG tablet 80 mg PO DAILY RF: 0 clopidogrel 75 MG tablet 75 mg PO DAILY RF: 0 acetaminophen 650 MG tablet 650 mg PO Q8H PRN RF: 0 levetiracetam [Keppra] 250 MG tablet 250 mg PO BID RF: 0 sodium bicarbonate 650 MG tablet 650 mg PO BID Qty: 2 RF: 0 nitroglycerin [Nitrostat] 0.4 MG tablet, sublingual 0.4 mg Sublingual ONCE RF: 0 docusate sodium 100 MG capsule 200 mg PO DAILY RF: 0 mometasone [Nasonex] 17 GM spray,non-aerosol 2 spry NS DAILY RF: 0 cholecalciferol (vitamin D3) [Vitamin D3] 1,000 UNIT capsule 1,000 unit PO DAILY RF: 0 Humalog U-100 Insulin 100 UNIT/1 ML cartridge 10 u SQ TIDWMEAL RF: 0 dutasteride [Avodart] 0.5 MG capsule 0.5 mg PO DAILY RF: 0 calcium acetate(phosphat bind) 667 MG capsule 1,334 mg PO TID RF: 0 ESSENTIAL Daily 1 EACH tablet 1 ea PO DAILY RF: 0 pantoprazole [Protonix] [address] for susp in packet 40 mg PO DAILY RF: 0 gabapentin 400 mg capsule RF: 0 gabapentin 100 mg capsule RF: 0 midodrine 10 mg tablet RF: 0 metoprolol tartrate 50 mg Tablet 12.5 mg PO BID RF: 0 aspirin [Aspir-81] 81 mg Tablet,Delayed Release (Dr/Ec) 81 mg PO DAILY RF: 0 nisoldipine 17 mg Tablet Extended Release 24 Hr 17 mg PO DAILY AM RF: 0 sertraline [Zoloft] 100 mg Tablet 125 mg PO DAILY AM RF: 0 trazodone 100 mg Tablet 100 mg PO HS RF: 0 sertraline [Zoloft] 25 mg Tablet 25 mg PO DAILY AM RF: 0 sevelamer carbonate [Renvela] 800 mg Tablet 800 mg PO TID RF: 0 Medical Decision Making This is a 70-year-old male diabetic, bilateral lower extremity amputee with end-stage renal disease who is on 3 days a week hemodialysis. EMS was called the dialysis center after the patient completed a full run. He was noted to have approximately 3 minutes of guppy breathing associated with change in mental status while at dialysis. His glucose was noted to be in the 140s. No seizure-like activity was noted. When paramedics arrived the patient had diffuse and coarse rhonchi throughout his lung vidales with associated room air hypoxia to the mid 80%. He was placed on oxygen and transported to ED. Patient is reported to have a history of recurrent pneumonias. The patient is reported to be a full code. He lives in [place], [place] with his Tere (ph) [phone]. He is fully vaccinated against COvid 19. He arrives here on supplemental oxygen, afebrile with blood pressure 130/62. He has a gag reflex and will respond to painful stimuli but is not verbal. Patient placed on a clinical research monitor, IV access established, referred for stat noncontrast CT scan of the head, chest x-ray. Labs: Initial ABG with pH 7.34, PCO2 52, PO2 64. Cell count is white blood cell count 16 but chronically elevated, hematocrit 35, platelets 235, left shift present with ANC of 13.6, again chronically elevated in this patient. Electrolytes are reassuring, lactic acid 1.6. Troponin negative. Patient does make approximately 150 cc of urine per day and urinalysis is pending. Rapid nasal Covid is negative. Chest x-ray: Reveals stable cardiomegaly, unchanged right subclavian catheter. Right lower lobe increased density and linear density in the left midlung. Increased densities at the lung bases and left midlung may represent pneumonia. CT head: atrophy, no hemorrhage or mass. Patient placed on BiPAP in order to blow off his hypercarbia. After initiation, he has clearing of mental status and starts to respond to conversational voice. Repeat blood gas obtained and essentially normalized; pH 7.4, PCO2 42, PO2 74. Patient given loading dose of Levaquin. Patient also given evening dose of Keppra as this may represent possible seizure at dialysis earlier today. The case was discussed with [facility] who are unable to accept transfer at this time, also discussed with [facility] who state they are at capacity with exception of neurosurgical & cardiac emergencies and also unable to accept the patient in transfer. As the patient had dialysis today, does make daily urine, I did discuss the case. I discussed the current circumstances with the patient's . She understands he is currently in the ER awaiing disposition. She states she wishes to have a brief trial of being full code but would not want prolonged life support. HPI General Mode of arrival: EMS. Date/Time Provider Initiated Documentation: 01/17/21 13:59. Information obtained by: EMS. History of Present Illness 70 year old M presents to the emergency department with the chief complaint of Unresponsive at dialysis, described as moderate, and is localized to the head. Patient reports no radiation. Patient started experiencing this minute(s) and it has been constant. No relieving factors improve symptom(s), No exacerbating factors reported . Patient notes cough and other (Reported to have 3 minutes of change to breathing at dialysis). Patient did receive the following treatments prior to arrival, none Related Data Home Medications Medication Instructions Recorded Confirmed ESSENTIAL Daily 1 ea PO DAILY NS 04/18/15 02/26/19 Humalog U-100 Insulin 10 u SQ TIDWMEAL NS 04/18/15 04/25/19 Lantus U-100 Insulin 2 unit SQ DAILY NS 04/18/15 04/25/19 acetaminophen 650 mg PO Q8H PRN NS 04/18/15 01/17/21 atorvastatin 80 mg PO DAILY tab-cap NS 04/18/15 01/17/21 calcium acetate(phosphat bind) 1,334 mg PO TID tab-cap NS 04/18/15 04/25/19 cholecalciferol (vitamin D3) 1,000 unit PO DAILY NS 04/18/15 04/25/19 [Vitamin D3] clopidogrel 75 mg PO DAILY tab-cap NS 04/18/15 01/17/21 docusate sodium 200 mg PO DAILY tab-cap NS 04/18/15 01/17/21 dutasteride [Avodart] 0.5 mg PO DAILY tab-cap NS 04/18/15 02/26/19 fexofenadine 60 mg PO DAILY NS 04/18/15 02/26/19 fluticasone propion-salmeterol 1 puff INHALATION BID disk NS 04/18/15 01/17/21 [Advair Diskus] ipratropium-albuterol 3 ml INHALATION Q6H PRN NS 04/18/15 01/17/21 levetiracetam [Keppra] 250 mg PO BID NS 04/18/15 01/17/21 metolazone 2.5 mg PO PRN tab-cap NS 04/18/15 02/26/19 mometasone [Nasonex] 2 spry NS DAILY spray NS 04/18/15 02/26/19 nitroglycerin [Nitrostat] 0.4 mg SUBLINGUAL ONCE NS 04/18/15 01/17/21 pantoprazole [Protonix] 40 mg PO DAILY packet NS 04/18/15 01/17/21 sodium bicarbonate 650 mg PO BID #2 NS 04/18/15 01/17/21 valsartan 80 mg PO DAILY NS 04/18/15 02/26/19 aspirin [Aspir-81] 81 mg PO DAILY 04/25/19 01/17/21 metoprolol tartrate 12.5 mg PO BID 04/25/19 04/25/19 nisoldipine 17 mg PO DAILY AM 04/25/19 01/17/21 sertraline [Zoloft] 25 mg PO DAILY AM 04/25/19 01/17/21 sertraline [Zoloft] 125 mg PO DAILY AM 04/25/19 01/17/21 sevelamer carbonate [Renvela] 800 mg PO TID 04/25/19 01/17/21 trazodone 100 mg PO HS 04/25/19 01/17/21 gabapentin 01/17/21 01/17/21 gabapentin 01/17/21 01/17/21 midodrine mg 01/17/21 01/17/21 Allergies Allergy/AdvReac Type Severity Reaction Status Date / Time adhesive tape Allergy Unverified 01/17/21 14:46 Iodinated Contrast Media Allergy Unverified 01/17/21 14:46 [Iodinated Contrast Media - IV Dye] General MADELAINE: 3 Review of Systems Unobtainable due to mental condition and Unobtainable due to mental status [facility] Medical History (Updated 01/17/21 @ 19:22 by Lalito Patterson MD) ASCVD (arteriosclerotic cardiovascular disease) CHF (congestive heart failure) Chronic renal insufficiency, stage V DM (diabetes mellitus) GERD (gastroesophageal reflux disease) Hyperlipidemia Hypertension Seizure disorder Surgical History Coronary Stent Tonsillectomy and adenoidectomy Vasectomy Social History Smoking/Tobacco Use Status: Former Tobacco Use Smoking risk assessment performed?: Yes Alcohol Intake: never Substance use type: does not use Do you feel safe at home: Yes Do you feel safe in your relationship?: Yes Additional Social history: pt lives at home with his Exam Narrative Exam Narrative: GEN: Somnolent, responds to painful stimulation HEAD: Normocephalic, atraumatic ENT: Mucous membranes dry, gag reflex intact, oropharynx unremarkable, External ear exam unremarkable EYES: PERRL, EOMI NECK: Full ROM, no MERRILL, no menigismus CHEST/RESP: Diffuse coarse rhonchi. Left upper chest port clean dry and intact CARDIOVASCULAR: Distant, regular. 2+ Rad pulse bilateral ABDOMEN: Soft, nontender, no mass. +Bowel sounds, indwelling Casanova catheter. EXT: Bilateral [id number] amputation Neuro: Somnolent, localizes painful stimuli Psych: Unable to assess Course Lab/Test Results Lab/Test Results: 01/17/21 13:47 Blood Blood Culture - Pending 01/17/21 13:47 Blood Blood Culture - Pending
[2021-01-17 14:23] LABS: BE 3 mmol/L (-2-3); HCO3 28 mmol/L (22-26); pCO2 52 mmHg (35-45); pH 7.34 (7.35-7.45); pO2 64 mmHg (80-105); sO2 89 % (95-98); tCO2 26 mmol/L (23-27)
[2021-01-17 14:29] LABS: FIO2L 2 L; Site Left Radial
[2021-01-17 14:31] LABS: Abs Immature Grans 0.07 10^3/uL (0.0-0.06); Absolute Lymphocyte Count 0.88 10^3/uL (1.2-3.4); Absolute Monocyte Count 1.06 10^3/uL (0.1-0.8); Basophils % 0.6; Eosinophils % 1.7; HCT 35.6 % (40.0-50.0); HGB 11.3 g/dL (13.5-17.5); Immature Grans % 0.4; Lymphocytes % 5.5; MCH 32.7 pg (27.0-33.0); MCHC 31.7 % (32.0-36.0); MCV 102.9 fL (80-95); MPV 9.9 fL (8.0-11.0); Monocytes % 6.6; Neutrophils % 85.2; Nucleated RBC 0 %; Platelet Count 235 10^3/uL (130-400); RBC 3.46 10^6/uL (4.36-5.78); RDW 13.8 % (11.8-14.1); RDW-SD 52.1 fL; WBC 16.04 10^3/uL (4.4-10.8)
[2021-01-17 14:32] LABS: Source Nasal/Nares
[2021-01-17 14:32] LABS: Absolute Eosinophil Count 0.27 10^3/uL (0.0-0.7); Absolute Neutrophil Count 13.67 10^3/uL (1.2-6.7)
[2021-01-17 15:18] LABS: Lactate 1.6 mmol/L (0.6-1.4)
[2021-01-17 15:29] LABS: COVID-19 PCR Negative (Negative)
[2021-01-17 15:41] LABS: ALT 15 U/L (16-63); AST 21 U/L (15-37); Albumin 3.1 g/dL (3.4-5.0); Alkaline Phosphatase 232 U/L (46-116); BUN 67 mg/dL (7-18); Bilirubin, Total 0.4 mg/dL (0.2-1.0); Calcium 9.7 mg/dL (8.5-10.1); Chloride 99 mmol/L (98-107); Estimated GFR 14.88 (mL/min/1.73m2); Glucose 170 mg/dL (74-106); Potassium 4.2 mmol/L (3.5-5.1); Sodium 137 mmol/L (136-145); Total Protein 10.3 g/dL (6.4-8.2); Troponin I < 0.05 ng/mL (<0.06)
[2021-01-17 15:56] LABS: Procalcitonin 0.5 ng/mL
[2021-01-17 16:17] LABS: BE 1 mmol/L (-2-3); HCO3 26 mmol/L (22-26); pCO2 42 mmHg (35-45); pO2 74 mmHg (80-105); sO2 95 % (95-98); tCO2 24 mmol/L (23-27)
[2021-01-17 16:19] LABS: FIO2 30 %; Site Left Radial
--- NOTE | 2021-01-17 16:28 | NUR.NOTE ---
Addendum entered by Cj Aleman RN 01/17/21 16:29: Patient has indwelling gupta Original Note: 1628 patient more alert Bipap remains on. Patient nods yes no to questions. Urine sent to lab from [facility].
[2021-01-17 16:45] LABS: Bilirubin Negative (Negative); Blood Large (Negative); Clarity Turbid (Clear); Glucose Negative (Negative); Ketones Negative (Negative); Leukocyte Esterase Small (Negative); Nitrite Negative (Negative); Urobilinogen 0.2 EU/dL (Up TO 0.2); pH 5.5 (5-8)
[2021-01-17] MEDS: levoFLOXacin 750 MG/150 ML BAG 100 MG IVPB (16:46)
[2021-01-17 16:58] LABS: C & S Indicated? Yes; WBC >50 HPF (0-5)
[2021-01-17] MEDS: LORazepam 2 MG/ML VIAL 0.5 MG IVP (17:36)
--- NOTE | 2021-01-17 17:54 | NUR.NOTE ---
1740 patient's called, patient is speaking few words at a time. Denies pain. Placed on oxygen mask by Respiratory.
[2021-01-17] MEDS: levETIRAcetam 500 MG in Normal Saline 100 ML 400 MG IVPB (18:04)
--- NOTE | 2021-01-17 19:06 | NUR.NOTE ---
1700 oral care provided x 2.
[2021-01-17 19:12] LABS: Troponin I < 0.05 ng/mL (<0.06)
--- NOTE | 2021-01-17 20:01 | HPE_ITS ---
Date of service: 01/17/21 Time of Service: 20:01 Assessment and Plan Assessment and plan (1) Hypercarbia: Start date: 01/17/21 Status: Acute Assessment and plan: This is a 70-year-old gentleman with end-stage renal disease on 3 days a week hemodialysis who is a full code though appeared to indicate that she would not want prolonged support. He would not awake fully at the time of my exam and his baseline is unknown. His vital signs have stabilized with BiPAP and his hypercarbia has resolved with BiPAP the patient on O2 supplementation. He has a history of seizure disorder and was given an extra dose of Keppra as well as being treated for his pneumonia which may be recurrent and possibly aspiration with this to be monitored closely. If any needs to be renally dosed. Patient's CODE STATUS should be reviewed. Supportive care with treatment of pneumonia and watch for recurrence CO2 retention with BiPAP as needed. Patient is not improving and wishes to continue full code, transfer to tertiary care center with hemodialysis capabilities would be indicated within the next 48 hours. If he improves he could be placed on oral Levaquin with reassessment of Keppra dosing for seizure disorder. (2) Pneumonia: Start date: 01/17/21 Status: Acute Assessment and plan: By x-ray with patient being given Levaquin renally dosed. Continue to monitor respiratory status and oxygenation. Qualifiers: Laterality: bilateral Lung location: lower lobe of lung Pneumonia type: due to unspecified organism Qualified Code(s): J18.9 - Pneumonia, unspecified organism (3) Altered mental status: Status: Acute Assessment and plan: By history the patient's baseline is better than seen upon admission. He is stable but not appearing to awaken for much activity. He does appear chronically ill with an acute decompensation. Long-term CODE STATUS needs to be addressed. PT and OT need to evaluate patient for baseline activity with transfers at home to be done safely. Patient does not appear to be able to support self or transfer self by my exam. There is some evidence of chronic deconditioning. Qualifiers: Altered mental status type: delirium Qualified Code(s): R41.0 - Disorientation, unspecified (4) Chronic renal insufficiency, stage V: Status: Chronic Assessment and plan: Continue hemodialysis 3 days weekly with patient just receiving dialysis on the day of admission. Reassess need for transfer patient is not improving to go home. Patient has always have an elevated lactic acid and creatinine appears to be stable. Patient does have some urinary output daily. (5) Seizure disorder: Status: Chronic Assessment and plan: Continue Keppra with increased dose upon admission and consider checking level in the morning. History of Present Illness History of Present Illness Chief Complaint: Altered mental status in dialysis unit Narrative: ED report: This is a 70-year-old male diabetic, bilateral lower extremity amputee with end-stage renal disease who is on 3 days a week hemodialysis. EMS was called the dialysis center after the patient completed a full run. He was noted to have approximately 3 minutes of guppy breathing associated with change in mental status while at dialysis. His glucose was noted to be in the 140s. No seizure-like activity was noted. When paramedics arrived the patient had diffuse and coarse rhonchi throughout his lung vidales with associated room air hypoxia to the mid 80%. He was placed on oxygen and transported to ED. Patient is reported to have a history of recurrent pneumonias. The patient is reported to be a full code. He lives in [place], [place] with his Tere () [phone]. He is fully vaccinated against COvid 19. He arrives here on supplemental oxygen, afebrile with blood pressure 130/62. He has a gag reflex and will respond to painful stimuli but is not verbal. Patient placed on a laboratory monitor, IV access established, referred for stat noncontrast CT scan of the head, chest x-ray. Labs: Initial ABG with pH 7.34, PCO2 52, PO2 64. Cell count is white blood cell count 16 but chronically elevated, hematocrit 35, platelets 235, left shift present with ANC of 13.6, again chronically elevated in this patient. Electrolytes are reassuring, lactic acid 1.6. Troponin negative. Patient does make approximately 150 cc of urine per day and urinalysis is pending. Rapid nasal Covid is negative. Chest x-ray: Reveals stable cardiomegaly, unchanged right subclavian catheter. Right lower lobe increased density and linear density in the left midlung. Increased densities at the lung bases and left midlung may represent pneumonia. CT head: atrophy, no hemorrhage or mass. Patient placed on BiPAP in order to blow off his hypercarbia. After initiation, he has clearing of mental status and starts to respond to conversational voice. Repeat blood gas obtained and essentially normalized; pH 7.4, PCO2 42, PO2 74. Patient given loading dose of Levaquin. Patient also given evening dose of Keppra as this may represent possible seizure at dialysis earlier today. The case was discussed with [facility] who are unable to accept transfer at this time, also discussed with [facility] who state they are at capacity with exception of neurosurgical & cardiac emergencies and also unable to accept the patient in transfer. As the patient had dialysis today, does make daily urine, I did discuss the case. I discussed the current circumstances with the patient's . She understands he is currently in the ER awaiing disposition. She states she wishes to have a brief trial of being full code but would not want prolonged life support. This is a 70-year-old male patient who was not able to offer further history at the time of my exam. His vital signs have stabilized after the above the ED evaluation and patient remained somewhat obtunded according to the nurse but responsive to verbal and tactile stimuli enough to awaken and attempt swallowing. He did not appear to be choking. He was slightly agitated and withdrawn during my exam. 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 He had adequate oxygenation on O2 supplementation. He continued to have rhonchorous breathing but no problem clearing upper airways with cough. He appears to be at risk for aspiration and thought he may have aspirated during his episode. He denies any seizure activity with increased Keppra dosing in the ED. Review of Systems Narrative: 13 point review of systems otherwise unrevealing or unable to obtain with patient's altered mental status. was not available at the time of my exam. COUNTS INCLUDE 234 BEDS AT THE [facility] Medical History (Updated 01/18/21 @ 12:37 by Josh Crocker) ASCVD (arteriosclerotic cardiovascular disease) CHF (congestive heart failure) Chronic renal insufficiency, stage V DM (diabetes mellitus) GERD (gastroesophageal reflux disease) Hyperlipidemia Hypertension Seizure disorder Surgical History Coronary Stent Tonsillectomy and adenoidectomy Vasectomy Social History Smoking/Tobacco Use Status: Former Tobacco Use Smoking risk assessment performed?: Yes Alcohol Intake: never Substance use type: does not use Do you feel safe at home: Yes Do you feel safe in your relationship?: Yes Additional Social history: pt lives at home with his Meds Allergies and Home Medications Allergies Allergy/AdvReac Type Severity Reaction Status Date / Time adhesive tape Allergy Unverified 01/17/21 14:46 Iodinated Contrast Media Allergy Unverified 01/17/21 14:46 [Iodinated Contrast Media - IV Dye] Home Medications Medication Instructions Recorded Confirmed Type ESSENTIAL Daily 1 ea PO DAILY NS 04/18/15 02/26/19 History Humalog U-100 Insulin 10 u SQ TIDWMEAL NS 04/18/15 04/25/19 History Lantus U-100 Insulin 4 unit SQ DAILY NS 04/18/15 04/25/19 History acetaminophen 650 mg PO Q8H PRN NS 04/18/15 01/17/21 History atorvastatin 80 mg PO DAILY tab-cap NS 04/18/15 01/17/21 History calcium acetate(phosphat bind) 1,334 mg PO TID tab-cap NS 04/18/15 04/25/19 History cholecalciferol (vitamin D3) 1,000 unit PO DAILY NS 04/18/15 04/25/19 History [Vitamin D3] clopidogrel 75 mg PO DAILY tab-cap NS 04/18/15 01/17/21 History docusate sodium 200 mg PO DAILY tab-cap NS 04/18/15 01/17/21 History dutasteride [Avodart] 0.5 mg PO DAILY tab-cap NS 04/18/15 01/18/21 History fexofenadine 60 mg PO DAILY NS 04/18/15 02/26/19 History fluticasone propion-salmeterol 1 puff INHALATION BID disk NS 04/18/15 01/17/21 History [Advair Diskus] ipratropium-albuterol 3 ml INHALATION Q6H PRN NS 04/18/15 01/17/21 History levetiracetam [Keppra] 250 mg PO BID NS 04/18/15 01/17/21 History metolazone 2.5 mg PO PRN tab-cap NS 04/18/15 01/18/21 History mometasone [Nasonex] 2 spry NS DAILY spray NS 04/18/15 02/26/19 History nitroglycerin [Nitrostat] 0.4 mg SUBLINGUAL ONCE NS 04/18/15 01/17/21 History pantoprazole [Protonix] 40 mg PO DAILY packet NS 04/18/15 01/17/21 History sodium bicarbonate 650 mg PO BID #2 NS 04/18/15 01/17/21 History valsartan 80 mg PO DAILY NS 04/18/15 01/18/21 History aspirin [Aspir-81] 81 mg PO DAILY 04/25/19 01/17/21 History metoprolol tartrate 12.5 mg PO BID 04/25/19 01/18/21 History nisoldipine 17 mg PO DAILY AM 04/25/19 01/17/21 History sertraline [Zoloft] 25 mg PO DAILY AM 04/25/19 01/17/21 History sertraline [Zoloft] 125 mg PO DAILY AM 04/25/19 01/17/21 History sevelamer carbonate [Renvela] 800 mg PO TID 04/25/19 01/17/21 History trazodone 100 mg PO HS 04/25/19 01/17/21 History gabapentin 01/17/21 01/17/21 History gabapentin 01/17/21 01/17/21 History midodrine mg 01/17/21 History Exam Narrative Exam Narrative: General: Patient appears much older than stated age, he appears chronically ill, lying in bed with head onto the right but responded to tactile and verbal stimuli but not with any meeting. Attempt to open and to open his eyes. At rest he appears in no acute distress. He appears diffusely diaphoretic with dark skin which feels doughy. HEENT: Normocephalic, coarsened facial features, eyes with pupils equal and reactive light symmetrically with extraocular movement intact examined with passive head movement. Sclera anicteric. Oropharynx with dry mucosa and poor dentition. Neck: Supple without JVD. Back: Kyphotic posture with patient not able to sit up for exam. Decreased range of motion. Lungs: Fair aeration with expiratory effort with diffuse expiratory rhonchi none focalizing coarse crackles and slightly increased expiratory phase. No d ullness to percussion. No focal egophony. Heart: Regular rate and rhythm with no murmurs gallops appreciated. Abdomen: Scaphoid contour, soft nontender to palpation with no palpable hepatosplenomegaly. Genitalia/rectal: Exam deferred. Patient has Casanova catheter in place. This is draining dark small amount of urine. Extremities: Bilateral AKA stumps appear to have atrophic muscle and no open sor es. Nurse reports sacral stage II ulcer. Peripheral pulses decreased. No cyanosis, clubbing or gross edema. Skin: Dark-colored appearing to be tanned, moist with doughy texture diffusely and decreased turgor. Neuro: Cranial nerves II through XII appear to be grossly intact, no focalizing motor deficits with patient obtunded. Psych: Flat affect and patient possibly delirious with baseline unknown. He is not answering questions appropriately. No abnormal thought processes manifested. Remote and recent memory untestable. Results Imaging Imaging Studies: EXAM: XR PORTABLE CHEST AP CLINICAL HISTORY: ms change, rhonchi TECHNIQUE: 2D digital imaging was performed. COMPARISON: CR,XR XR CHEST 2V PA LATERAL from 04/25/2019 CR XR PORTABLE CHEST AP from 08/16/2020. FINDINGS: Exam is limited by semi-upright positioning and underpenetration. The right costophrenic angle has been Coned from view. There is stable cardiomegaly. A right subclavian catheter is unchanged in position. Sternal wires and mediastinal clips are noted. areas of increased density are again noted at the right lower lobe as well as a linear area in the left mid lung. Superimposed pneumonia cannot be excluded. IMPRESSION: Extremely limited exam. Increased densities at the lung bases which could indic ate pneumonia. Clinical correlation is recommended. Labs Result diagrams: 01/18/21 06:12 01/18/21 06:12 Labs: Laboratory Results - last 24 hr 01/17/21 01/17/21 01/17/21 13:47 13:53 13:53 WBC 16.04 H RBC 3.46 L Hgb 11.3 L Hct 35.6 L MCV 102.9 H MCH 32.7 MCHC 31.7 L RDW 13.8 Plt Count 235 MPV 9.9 Immature Gran % 0.4 Neutrophils % 85.2 Lymphocytes % 5.5 Monocytes % 6.6 Eosinophils % 1.7 Basophils % 0.6 Nucleated RBC % 0 Absolute Neutrophils 13.67 H Absolute Lymphocytes 0.88 L Absolute Monocytes 1.06 H Absolute Eosinophils 0.27 Absolute Basophils 0.10 ABG Sample Site ABG pH ABG pCO2 ABG pO2 ABG HCO3 ABG Total CO2 ABG O2 Saturation ABG Base Excess VBG Lactate Oxygen Liter Flow FiO2 Sodium Cancelled Potassium Cancelled Chloride Cancelled Carbon Dioxide Cancelled Anion Gap Cancelled BUN Cancelled Creatinine Cancelled Estimated GFR/1.73 m2 Cancelled Glucose Cancelled Calcium Cancelled Total Bilirubin Cancelled AST Cancelled ALT Cancelled Alkaline Phosphatase Cancelled Troponin I Total Protein Cancelled Albumin Cancelled Procalcitonin Cancelled Urine Color Urine Clarity Urine pH Ur Specific Colt Urine Protein Urine Ketones Urine Blood Urine Nitrite Urine Bilirubin Urine Urobilinogen Ur Leukocyte Esterase Urine RBC Urine WBC Ur Epithelial Cells Urine Crystals Urine Bacteria Urine Mucus Ur Culture Indicated? Urine Glucose COVID-19 Source SARS-CoV-2 (PCR) 01/17/21 01/17/21 01/17/21 14:15 14:15 14:35 WBC RBC Hgb Hct MCV MCH MCHC RDW Plt Count MPV Immature Gran % Neutrophils % Lymphocytes % Monocytes % Eosinophils % Basophils % Nucleated RBC % Absolute Neutrophils Absolute Lymphocytes Absolute Monocytes Absolute Eosinophils Absolute Basophils ABG Sample Site Left Radial ABG pH 7.34 L ABG pCO2 52 H ABG pO2 64 L ABG HCO3 28 H ABG Total CO2 26 ABG O2 Saturation 89 L ABG Base Excess 3 VBG Lactate Cancelled Oxygen Liter Flow 2 FiO2 Sodium Potassium Chloride Carbon Dioxide Anion Gap BUN Creatinine Estimated GFR/1.73 m2 Glucose Calcium Total Bilirubin AST ALT Alkaline Phosphatase Troponin I Total Protein Albumin Procalcitonin Urine Color Urine Clarity Urine pH Ur Specific Colt Urine Protein Urine Ketones Urine Blood Urine Nitrite Urine Bilirubin Urine Urobilinogen Ur Leukocyte Esterase Urine RBC Urine WBC Ur Epithelial Cells Urine Crystals Urine Bacteria Urine Mucus Ur Culture Indicated? Urine Glucose COVID-19 Source Nasal/Nares SARS-CoV-2 (PCR) Negative 01/17/21 01/17/21 01/17/21 15:05 15:05 15:05 WBC RBC Hgb Hct MCV MCH MCHC RDW Plt Count MPV Immature Gran % Neutrophils % Lymphocytes % Monocytes % Eosinophils % Basophils % Nucleated RBC % Absolute Neutrophils Absolute Lymphocytes Absolute Monocytes Absolute Eosinophils Absolute Basophils ABG Sample Site ABG pH ABG pCO2 ABG pO2 ABG HCO3 ABG Total CO2 ABG O2 Saturation ABG Base Excess VBG Lactate 1.6 H Oxygen Liter Flow FiO2 Sodium 137 Potassium 4.2 Chloride 99 Carbon Dioxide 29.0 Anion Gap 9.0 BUN 67 H Creatinine 4.0 H* Estimated GFR/1.73 m2 14.88 Glucose 170 H Calcium 9.7 Total Bilirubin 0.4 AST 21 ALT 15 L Alkaline Phosphatase 232 H Troponin I < 0.05 Total Protein 10.3 H Albumin 3.1 L Procalcitonin 0.5 Urine Color Urine Clarity Urine pH Ur Specific Colt Urine Protein Urine Ketones Urine Blood Urine Nitrite Urine Bilirubin Urine Urobilinogen Ur Leukocyte Esterase Urine RBC Urine WBC Ur Epithelial Cells Urine Crystals Urine Bacteria Urine Mucus Ur Culture Indicated? Urine Glucose COVID-19 Source SARS-CoV-2 (PCR) 01/17/21 01/17/21 01/17/21 16:12 16:20 18:45 WBC RBC Hgb Hct MCV MCH MCHC RDW Plt Count MPV Immature Gran % Neutrophils % Lymphocytes % Monocytes % Eosinophils % Basophils % Nucleated RBC % Absolute Neutrophils Absolute Lymphocytes Absolute Monocytes Absolute Eosinophils Absolute Basophils ABG Sample Site Left Radial ABG pH 7.40 ABG pCO2 42 ABG pO2 74 L ABG HCO3 26 ABG Total CO2 24 ABG O2 Saturation 95 ABG Base Excess 1 VBG Lactate Oxygen Liter Flow BIPAP 10/5 FiO2 30 Sodium Potassium Chloride Carbon Dioxide Anion Gap BUN Creatinine Estimated GFR/1.73 m2 Glucose Calcium Total Bilirubin AST ALT Alkaline Phosphatase Troponin I < 0.05 Total Protein Albumin Procalcitonin Urine Color Straw Urine Clarity Turbid Urine pH 5.5 Ur Specific Colt 1.020 Urine Protein >=300 H Urine Ketones Negative Urine Blood Large H Urine Nitrite Negative Urine Bilirubin Negative Urine Urobilinogen 0.2 Ur Leukocyte Esterase Small H Urine RBC Not Applicable Urine WBC >50 H Ur Epithelial Cells Not Applicable Urine Crystals Not Applicable Urine Bacteria Not Applicable Urine Mucus Not Applicable Ur Culture Indicated? Yes Urine Glucose Negative COVID-19 Source SARS-CoV-2 (PCR) Last Vital Signs Temp 36.5 C 01/17/21 13:44 Pulse 90 01/17/21 19:00 Resp 19 01/17/21 19:10 BP 113/70 01/17/21 19:00 Pulse Ox 98 01/17/21 19:10
[2021-01-17] MEDS: Sodium Bicarbonate 650 MG TAB PO (22:23)
[2021-01-17] MEDS: traZODone 100 MG TAB PO (22:23)
[2021-01-17] MEDS: levETIRAcetam 250 MG TAB PO (22:23)
[2021-01-18] VITALS (103 sets, daily range): BP systolic 112–129; BP diastolic 47–73; PULSE 66–89; RESP 10–22; TEMP 36.5–37.2; O2SAT 87–100
[2021-01-18] MEDS: Sertraline 25 MG TAB PO (06:16)
[2021-01-18 06:38] LABS: Abs Immature Grans 0.04 10^3/uL (0.0-0.06); Absolute Basophil Count 0.06 10^3/uL (0.0-0.2); Absolute Monocyte Count 1.21 10^3/uL (0.1-0.8); Basophils % 0.5; Eosinophils % 3.6; HGB 10.2 g/dL (13.5-17.5); Immature Grans % 0.3; Lymphocytes % 9.5; MCH 32.1 pg (27.0-33.0); MCHC 30.9 % (32.0-36.0); MCV 103.8 fL (80-95); MPV 9.9 fL (8.0-11.0); Monocytes % 9.8; Neutrophils % 76.3; Nucleated RBC 0 %; Platelet Count 215 10^3/uL (130-400); RBC 3.18 10^6/uL (4.36-5.78); RDW 13.9 % (11.8-14.1); RDW-SD 53.1 fL; WBC 12.37 10^3/uL (4.4-10.8)
[2021-01-18 06:42] LABS: Absolute Eosinophil Count 0.45 10^3/uL (0.0-0.7); Absolute Lymphocyte Count 1.18 10^3/uL (1.2-3.4); Absolute Neutrophil Count 9.44 10^3/uL (1.2-6.7)
[2021-01-18 07:06] LABS: ALT 10 U/L (16-63); AST 16 U/L (15-37); Albumin 2.6 g/dL (3.4-5.0); Alkaline Phosphatase 203 U/L (46-116); Bilirubin, Total 0.4 mg/dL (0.2-1.0); Calcium 10.2 mg/dL (8.5-10.1); Chloride 99 mmol/L (98-107); Estimated GFR 10.99 (mL/min/1.73m2); Glucose 100 mg/dL (74-106); Potassium 5.3 mmol/L (3.5-5.1); Sodium 135 mmol/L (136-145); Total Protein 8.8 g/dL (6.4-8.2)
[2021-01-18 07:09] LABS: BUN 91 mg/dL (7-18)
[2021-01-18 07:10] LABS: CREATININE 5.2 mg/dL (0.70-1.30)
[2021-01-18] MEDS: Budesonide/Formoterol 160/4.5 6 GM 60 PUFF INH IH ×2 (08:20→21:23)
[2021-01-18] MEDS: Sodium Bicarbonate 650 MG TAB PO ×2 (08:34→21:24)
[2021-01-18] MEDS: Metoprolol 12.5 MG TAB PO ×2 (08:34→21:24)
[2021-01-18] MEDS: Clopidogrel 75 MG TAB PO (08:34)
[2021-01-18] MEDS: Pantoprazole 40 MG TABCR PO (08:34)
[2021-01-18] MEDS: levETIRAcetam 250 MG TAB PO ×2 (08:34→21:24)
[2021-01-18] MEDS: Docusate Sodium 100 MG CAP 200 MG PO (08:34)
[2021-01-18] MEDS: Aspirin E.C. 81 MG TABEC PO (08:34)
[2021-01-18] MEDS: Cholecalciferol (Vitamin D3) 1,000 UNIT TAB 1000 UNITS PO (08:34)
[2021-01-18] MEDS: Sertraline 50 MG TAB 100 MG PO (08:35)
[2021-01-18] MEDS: Multivitamin w/Minerals TAB 1 TAB PO (08:36)
--- NOTE | 2021-01-18 08:38 | PDOC.CMIN ---
- If Service Date Differs Date of service: 01/18/21 Time of Service: 08:38 Care Management Initial Assess REASON FOR HOSPITALIZATION:: Hypercarbia. Pneumonia PAST MEDICAL HISTORY/PAST SURGICAL HISTORY:: Medical History (Updated 01/17/21 @ 20:03 by Josh Crocker). ASCVD (arteriosclerotic cardiovascular disease). CHF (congestive heart failure). Chronic renal insufficiency, stage V. DM (diabetes mellitus). GERD (gastroesophageal reflux disease). Hyperlipidemia. Hypertension. Seizure disorder. Surgical History . Coronary Stent. Tonsillectomy and adenoidectomy. Vasectomy PREVIOUS FUNCTIONAL STATUS/SOCIAL/FAMILY SUPPORTS:: Wilfrid lives in [place], [place] with his Tere. Wilfrid has 2 children and Tere has 3. All together they have 5 grandchildren and several great grandchildren. Wilfrid receives dialysis three times a week on Tuesdays, and Saturdays. He receives care through the [facility] which includes an RN weekly and WEB ARCHITECT for ADLs twice a week. CURRENT FUNCTIONAL STATUS:: Wilfrid was sitting up in bed when CM met with him. His Tere was also present and was able to give aditional information. Wilfrid is scheduled to have dialysis tomorrow morning at 10:00 at the [facility] on [facility] . It is unclear what his discharge plan will be at this time. CM will uopdate Tere as plans evolve. ADVANCE DIRECTIVES:: none on file Has patient been provided with info about the portal/API?: Yes Did the patient sign up for the portal?: No CODE STATUS:: Full Code INSURANCE COVERAGE / FINANCIAL ISSUES:: Medicare. [facility] CURRENT HOME/COMMUNITY SERVICES/EQUIPMENT:: Hemodialysis at [facility] [address] Wilfrid is a bilateral amputee and receives services at home through the [facility] including nursing and OT for personal care PRIMARY CARE PHYSICIAN:: Nayla Valles POTENTIAL DISCHARGE NEEDS:: Follow up with PCP and plan of care PATIENT/FAMILY EDUCATION NEEDS:: Review of discharge instructions, medications, follow up plan, activity, limitations, Ask Me Three TRANSPORTATION:: via private vehicle with family PLAN:: Wilfrid will likely be discharged home with a resumption of his current services, however as he needs dialysis tomorrow, transfer may be required. Wilfrid will follow up with his PCP and plan of care and transport with family. CM will continue to support Wilfrid and his discharge plannning needs.
--- NOTE | 2021-01-18 08:56 | PGE_ITS ---
Date of Service Date of service: 01/18/21 Time of Service: 08:56 Assessment and Plan Assessment and plan (1) Pneumonia: Status: Acute Assessment and plan: questionable aspiration vs community aquired. he tells me that he completed a course of antibiotics as outpatient about one month ago. Because he is on hemodialysis and can not be dialyzed here at [facility], he will either have to be transferred to a tertiary care such as [facility] or [facility] if he needs continued inpatient treatement or if he responds to current treatment and can be discharged home and get his outpatient treatment. His next treatment is tomorrow. His potassium is already rising at 5.3. He was started on Levaqin 750 mg last night in the ER. Dosing should now be 500 mg q48hr. next dose should be tomorow night around 8 or 9 pm. I have switched him to oral since he is taking po well and Levaquin is just as effective orally as parenteral forms and he does not need extra iv fluids. I also added Augmentin 500 mg orally once a day to cover for anaerobic bacteria since he may have aspirated although this was not noted on his admission. Qualifiers: Pneumonia type: due to unspecified organism Laterality: bilateral Lung location: lower lobe of lung Qualified Code(s): J18.9 - Pneumonia, unspecified organism (2) Hypercarbia: Status: Acute Assessment and plan: not clear as to the cause for his hypercarbia, the hypoxemia is secondary to his pneumonia. consider EVA as cause; will monitor overnight for apnea (3) Altered mental status: Status: Acute Assessment and plan: negative head CT and patient now alert/oriented; acute mental status change felt to be d/t combination of hypercarbia and hypoxemia. he is now on NC oxygen at 2 lpm and his SPO2 is 98%. I will ask RT and nursing to try weaning down his oxygen. Qualifiers: Altered mental status type: delirium Qualified Code(s): R41.0 - Disorientation, unspecified (4) Chronic renal insufficiency, stage V: Status: None Assessment and plan: If patient is not ready for discharge tomorrow then he will have to be transferred to tertiary care for hemodialysis tomorrow. Subjective Subjective Interval history since last seen: Patient admitted last night via the ER from hemodialysis center after having a witnessed syncopal spell in which he was found to be unresponsive w/ guppy breathing. This occurred after completion of full run of his hemodialysis. EMS was called and foung him to be unresponsive w/ SPO2 in the 80's. No witnessed tonic/clonic activity, although he has hx of seizures. On arrival to the ER he had intact gag and was responsive to only noxious stimulation. CT head was negative for acute bleed/CVA but demonstrates chronic microvascular disease. ABG demonstrated hypercarbia w/ PCO2 52 but compensated ph 7.34 and PO2 of 64. CXR demonstrated cardiomegaly and bilateral pulmonary densities incluiding both bases and left mid lung. He was afebrile but had WBC 16,000. Blood cultures were obtained and he was started on levaquin and was given Keppra. Nasal swab is negative for Covid-19. He is fully vaccinated against Covid-19. Because he is ESRD, calls were placed by the ER for transfer to a facility that could handle his hemodialysis. 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; no redness or increased warmth over them; lower extremities s/p bilateral AKA stumps look clean and healed Objective Last Vital Signs Temp 37.2 C 01/18/21 06:48 Pulse 86 01/18/21 08:01 Resp 18 01/18/21 08:01 BP 129/69 01/18/21 08:01 Pulse Ox 94 01/18/21 08:01 Laboratory Results - last 24 hr 01/17/21 01/17/21 01/17/21 13:47 13:53 13:53 WBC 16.04 H RBC 3.46 L Hgb 11.3 L Hct 35.6 L MCV 102.9 H MCH 32.7 MCHC 31.7 L RDW 13.8 Plt Count 235 MPV 9.9 Immature Gran % 0.4 Neutrophils % 85.2 Lymphocytes % 5.5 Monocytes % 6.6 Eosinophils % 1.7 Basophils % 0.6 Nucleated RBC % 0 Absolute Neutrophils 13.67 H Absolute Lymphocytes 0.88 L Absolute Monocytes 1.06 H Absolute Eosinophils 0.27 Absolute Basophils 0.10 ABG Sample Site ABG pH ABG pCO2 ABG pO2 ABG HCO3 ABG Total CO2 ABG O2 Saturation ABG Base Excess VBG Lactate Oxygen Liter Flow FiO2 Sodium Cancelled Potassium Cancelled Chloride Cancelled Carbon Dioxide Cancelled Anion Gap Cancelled BUN Cancelled Creatinine Cancelled Estimated GFR/1.73 m2 Cancelled Glucose Cancelled Calcium Cancelled Total Bilirubin Cancelled AST Cancelled ALT Cancelled Alkaline Phosphatase Cancelled Troponin I Total Protein Cancelled Albumin Cancelled Procalcitonin Cancelled Urine Color Urine Clarity Urine pH Ur Specific [place] Urine Protein Urine Ketones Urine Blood Urine Nitrite Urine Bilirubin Urine Urobilinogen Ur Leukocyte Esterase Urine RBC Urine WBC Ur Epithelial Cells Urine Crystals Urine Bacteria Urine Mucus Ur Culture Indicated? Urine Glucose COVID-19 Source SARS-CoV-2 (PCR) 01/17/21 01/17/21 01/17/21 14:15 14:15 14:35 WBC RBC Hgb Hct MCV MCH MCHC RDW Plt Count MPV Immature Gran % Neutrophils % Lymphocytes % Monocytes % Eosinophils % Basophils % Nucleated RBC % Absolute Neutrophils Absolute Lymphocytes Absolute Monocytes Absolute Eosinophils Absolute Basophils ABG Sample Site Left Radial ABG pH 7.34 L ABG pCO2 52 H ABG pO2 64 L ABG HCO3 28 H ABG Total CO2 26 ABG O2 Saturation 89 L ABG Base Excess 3 VBG Lactate Cancelled Oxygen Liter Flow 2 FiO2 Sodium Potassium Chloride Carbon Dioxide Anion Gap BUN Creatinine Estimated GFR/1.73 m2 Glucose Calcium Total Bilirubin AST ALT Alkaline Phosphatase Troponin I Total Protein Albumin Procalcitonin Urine Color Urine Clarity Urine pH Ur Specific [place] Urine Protein Urine Ketones Urine Blood Urine Nitrite Urine Bilirubin Urine Urobilinogen Ur Leukocyte Esterase Urine RBC Urine WBC Ur Epithelial Cells Urine Crystals Urine Bacteria Urine Mucus Ur Culture Indicated? Urine Glucose COVID-19 Source Nasal/Nares SARS-CoV-2 (PCR) Negative 01/17/21 01/17/21 01/17/21 15:05 15:05 15:05 WBC RBC Hgb Hct MCV MCH MCHC RDW Plt Count MPV Immature Gran % Neutrophils % Lymphocytes % Monocytes % Eosinophils % Basophils % Nucleated RBC % Absolute Neutrophils Absolute Lymphocytes Absolute Monocytes Absolute Eosinophils Absolute Basophils ABG Sample Site ABG pH ABG pCO2 ABG pO2 ABG HCO3 ABG Total CO2 ABG O2 Saturation ABG Base Excess VBG Lactate 1.6 H Oxygen Liter Flow FiO2 Sodium 137 Potassium 4.2 Chloride 99 Carbon Dioxide 29.0 Anion Gap 9.0 BUN 67 H Creatinine 4.0 H* Estimated GFR/1.73 m2 14.88 Glucose 170 H Calcium 9.7 Total Bilirubin 0.4 AST 21 ALT 15 L Alkaline Phosphatase 232 H Troponin I < 0.05 Total Protein 10.3 H Albumin 3.1 L Procalcitonin 0.5 Urine Color Urine Clarity Urine pH Ur Specific [place] Urine Protein Urine Ketones Urine Blood Urine Nitrite Urine Bilirubin Urine Urobilinogen Ur Leukocyte Esterase Urine RBC Urine WBC Ur Epithelial Cells Urine Crystals Urine Bacteria Urine Mucus Ur Culture Indicated? Urine Glucose COVID-19 Source SARS-CoV-2 (PCR) 01/17/21 01/17/21 01/17/21 16:12 16:20 18:45 WBC RBC Hgb Hct MCV MCH MCHC RDW Plt Count MPV Immature Gran % Neutrophils % Lymphocytes % Monocytes % Eosinophils % Basophils % Nucleated RBC % Absolute Neutrophils Absolute Lymphocytes Absolute Monocytes Absolute Eosinophils Absolute Basophils ABG Sample Site Left Radial ABG pH 7.40 ABG pCO2 42 ABG pO2 74 L ABG HCO3 26 ABG Total CO2 24 ABG O2 Saturation 95 ABG Base Excess 1 VBG Lactate Oxygen Liter Flow BIPAP 10/5 FiO2 30 Sodium Potassium Chloride Carbon Dioxide Anion Gap BUN Creatinine Estimated GFR/1.73 m2 Glucose Calcium Total Bilirubin AST ALT Alkaline Phosphatase Troponin I < 0.05 Total Protein Albumin Procalcitonin Urine Color Straw Urine Clarity Turbid Urine pH 5.5 Ur Specific [place] 1.020 Urine Protein >=300 H Urine Ketones Negative Urine Blood Large H Urine Nitrite Negative Urine Bilirubin Negative Urine Urobilinogen 0.2 Ur Leukocyte Esterase Small H Urine RBC Not Applicable Urine WBC >50 H Ur Epithelial Cells Not Applicable Urine Crystals Not Applicable Urine Bacteria Not Applicable Urine Mucus Not Applicable Ur Culture Indicated? Yes Urine Glucose Negative COVID-19 Source SARS-CoV-2 (PCR) 01/18/21 01/18/21 06:12 06:12 WBC 12.37 H RBC 3.18 L Hgb 10.2 L Hct 33.0 L MCV 103.8 H MCH 32.1 MCHC 30.9 L RDW 13.9 Plt Count 215 MPV 9.9 Immature Gran % 0.3 Neutrophils % 76.3 Lymphocytes % 9.5 Monocytes % 9.8 Eosinophils % 3.6 Basophils % 0.5 Nucleated RBC % 0 Absolute Neutrophils 9.44 H Absolute Lymphocytes 1.18 L Absolute Monocytes 1.21 H Absolute Eosinophils 0.45 Absolute Basophils 0.06 ABG Sample Site ABG pH ABG pCO2 ABG pO2 ABG HCO3 ABG Total CO2 ABG O2 Saturation ABG Base Excess VBG Lactate Oxygen Liter Flow FiO2 Sodium 135 L Potassium 5.3 H D Chloride 99 Carbon Dioxide 26.0 Anion Gap 10.0 BUN 91 H* D Creatinine 5.2 H* D Estimated GFR/1.73 m2 10.99 Glucose 100 D Calcium 10.2 H Total Bilirubin 0.4 AST 16 ALT 10 L Alkaline Phosphatase 203 H Troponin I Total Protein 8.8 H Albumin 2.6 L Procalcitonin Urine Color Urine Clarity Urine pH Ur Specific [place] Urine Protein Urine Ketones Urine Blood Urine Nitrite Urine Bilirubin Urine Urobilinogen Ur Leukocyte Esterase Urine RBC Urine WBC Ur Epithelial Cells Urine Crystals Urine Bacteria Urine Mucus Ur Culture Indicated? Urine Glucose COVID-19 Source SARS-CoV-2 (PCR)
[2021-01-18] MEDS: Heparin 5,000 UNITS/ML VIAL 5000 UNITS SC ×2 (11:09→21:25)
[2021-01-18] MEDS: Amoxicillin 500/Clav. 125 TAB PO (11:09)
--- NOTE | 2021-01-18 11:35 | W.INDIABCONS ---
Date of service: 01/18/21 Time of Service: 12:28 Diabetes Inpatient Consult DESCRIPTION/ASSESSMENT: 70 yea rold male admitted with AMS s/p dialysis with long standing hx of DM2, ARF, CHF, HTN, HLD with bilateral AKA. BMI inaccurate in view of AKA x 2, however, does not look well nourished, most recent albumin low. Home Dm meds include 10 unit rapid insulin at meals, 2 units lantus HS. No recent A1C. Blood sugars controlled with sliding scale. At high nutritional risk in view of increased nutrient needs with HD and low weight. INTERVENTION: No education warranted at this time due to cognitive impairment PLAN: Will monitor po intake, labs and weight. Time Spent in Nutritional Counseling and Treatment: 0
[2021-01-18] MEDS: Insulin Aspart 300 UNITS/3 ML PEN SC ×2 (11:49→21:28)
--- NOTE | 2021-01-18 15:28 | NUR.NOTE ---
Message left on voice for at home. Pt states last night and today that he has a home bipap or cpap unit. is willing to wear it in hopital. Message left for to call and let us know if she is able to bring this to the hospital for pt. Nursing Note:
--- NOTE | 2021-01-18 16:25 | RESPIRATORY ---
RT and nursing spoke with pt's as well as Andre who both confirmed that pt's baseline is 2L O2 nasal cannula 03/12. No other devices are used at home currently.
[2021-01-18] MEDS: Atorvastatin 40 MG TAB 80 MG PO (21:23)
[2021-01-18] MEDS: traZODone 100 MG TAB PO (21:25)
[2021-01-19] VITALS (15 sets, daily range): BP systolic 112–125; BP diastolic 54–63; PULSE 72–81; RESP 15–24; TEMP 36.6–37.2; O2SAT 88–98
[2021-01-19 06:36] LABS: Abs Immature Grans 0.03 10^3/uL (0.0-0.06); Absolute Basophil Count 0.07 10^3/uL (0.0-0.2); Absolute Eosinophil Count 0.45 10^3/uL (0.0-0.7); Absolute Lymphocyte Count 1.08 10^3/uL (1.2-3.4); Absolute Monocyte Count 1.03 10^3/uL (0.1-0.8); Absolute Neutrophil Count 6.33 10^3/uL (1.2-6.7); Basophils % 0.8; HCT 29.7 % (40.0-50.0); HGB 9.6 g/dL (13.5-17.5); Immature Grans % 0.3; MCH 32.2 pg (27.0-33.0); MCHC 32.3 % (32.0-36.0); MCV 99.7 fL (80-95); MPV 9.7 fL (8.0-11.0); Monocytes % 11.5; Neutrophils % 70.4; Nucleated RBC 0 %; Platelet Count 203 10^3/uL (130-400); RBC 2.98 10^6/uL (4.36-5.78); RDW 13.8 % (11.8-14.1); RDW-SD 49.9 fL; WBC 8.99 10^3/uL (4.4-10.8)
[2021-01-19 06:50] LABS: Anion Gap 12.8 mmol/L (3-11); CO2 22.2 mmol/L (21.0-32.0); Calcium 9.7 mg/dL (8.5-10.1); Chloride 95 mmol/L (98-107); Estimated GFR 8.49 (mL/min/1.73m2); Glucose 106 mg/dL (74-106); Potassium 5.5 mmol/L (3.5-5.1); Sodium 130 mmol/L (136-145)
[2021-01-19 06:52] LABS: BUN 112 mg/dL (7-18); CREATININE 6.5 mg/dL (0.70-1.30)
[2021-01-19] MEDS: levETIRAcetam 250 MG TAB PO (07:57)
[2021-01-19] MEDS: Sertraline 25 MG TAB PO (07:58)
[2021-01-19] MEDS: Sodium Bicarbonate 650 MG TAB PO (07:58)
[2021-01-19] MEDS: Sertraline 50 MG TAB 100 MG PO (07:58)
[2021-01-19] MEDS: Clopidogrel 75 MG TAB PO (07:58)
[2021-01-19] MEDS: Amoxicillin 500/Clav. 125 TAB PO (07:59)
[2021-01-19] MEDS: Multivitamin w/Minerals TAB 1 TAB PO (07:59)
[2021-01-19] MEDS: Metoprolol 12.5 MG TAB PO (07:59)
[2021-01-19] MEDS: Pantoprazole 40 MG TABCR PO (07:59)
[2021-01-19] MEDS: Cholecalciferol (Vitamin D3) 1,000 UNIT TAB 1000 UNITS PO (07:59)
[2021-01-19] MEDS: Aspirin E.C. 81 MG TABEC PO (07:59)
[2021-01-19] MEDS: Docusate Sodium 100 MG CAP 200 MG PO (08:02)
--- NOTE | 2021-01-19 08:30 | PDOC.CMPRO ---
- If Service Date Differs Date of service: 01/19/21 Time of Service: 08:30 Care Management Progress Note S/O: A:Wilfrid is a 70 year old man admitted on 01/17/21 with pneumonia P:Wilfrid will likely be discharged home with a resumption of his current services, however as he needs dialysis tomorrow, transfer may be required. Wilfrid will follow up with his PCP and plan of care and transport with family. CM will continue to support Wilfrid and his discharge plannning needs. cc:
--- NOTE | 2021-01-19 09:23 | PGE_ITS ---
Date of Service Date of service: 01/19/21 Time of Service: :23 Assessment and Plan Assessment and plan (1) Pneumonia: Status: Acute Assessment and plan: CAP; questionable aspiration pneumonia. Patient seems to be responding to oral antibiotics (Levaquin 750 mg q48hr and Augmentin 500 mg po daily). cont. nebulizers and oxygen supplementation. I do not feel that he is ready for discharge considering that he had hypercapnea and hypoxemia and passed out in hemodialysis. I also question whether or not they may have taken too much fluid off. I have updated his , Tere on his condition Qualifiers: Pneumonia type: due to unspecified organism Laterality: bilateral Lung location: lower lobe of lung Qualified Code(s): J18.9 - Pneumonia, unspecified organism (2) Hypercarbia: Status: Acute Assessment and plan: not clear as to the cause for his hypercarbia, the hypoxemia is secondary to his pneumonia. consider EVA as cause; will monitor overnight for apnea. His repeat labs this morning his CO2 on his BMP is normal. (3) Altered mental status: Status: Acute Assessment and plan: improving although he is still not at baseline. Qualifiers: Altered mental status type: delirium Qualified Code(s): R41.0 - Disorientation, unspecified (4) Chronic renal insufficiency, stage V: Status: Chronic Assessment and plan: electrolytes are stable K+ 5.5 similar to yesterday. However he will need hemodialysis within the next day. [facility] has accepted him in transfer to Dr. Lalito Colón service but no beds available yet. Subjective Subjective Interval history since last seen: Patient is alert, no discomfort and denies any dyspnea. he has moist cough but is not producing any mucous. He is afebrile. SPO2 on room air is 85% but w/ 2 LPM oxygen saturation is 96%. He is currently on Augmentin 500 mg daily along w/ Levaquin 750 mg every 48hr. His repeat labs include CBC, BMP. WBC are now down to 8900 from high of 16,000. His Hb is slightly lower at 9.6 gm however he has had no evidence of bleeding. He is oriented to person/place only in that he knows that he is in the hospital, nowever he thinks that he is in [facility] in [place], [place], but he knows that this is 2020 and January. I spoke w/ his Tere who indicated that his baseline cognition is usually good in that he is usually aware of his surroundings and his family and dates but when he gets ill he will become confused and often goes back to where he was born and raised, [place], [place] and [place]. Tere indicated that he has been in [place] for past 14 yrs but that they were in [facility]. I explained to her that I reached out to [facility] and he was accepted there but they did not have any beds this morning. I did reach out to [facility] however because they are short on beds and because the patient is a [facility] patient who has been accepted for transfer, then [facility] has declined the patient. Exam Narrative Exam Narrative: Alert, oriented to person/month/year/ and knows that he is in the hospital but thinks that he is in [facility] in [place], [place] Neck: supple, no JVD Lungs: bibasilar rhonchi and wheezing; no rales Heart: RRR, no rub Abdomen: soft, scaphoid, nontender Objective Last Vital Signs Temp 37.2 C 01/19/21 08:15 Pulse 72 01/19/21 08:52 Resp 15 01/19/21 08:01 BP 119/59 L 01/19/21 08:01 Pulse Ox 96 01/19/21 08:01 Laboratory Results - last 24 hr 01/19/21 01/19/21 06:14 06:14 WBC 8.99 RBC 2.98 L Hgb 9.6 L Hct 29.7 L MCV 99.7 H MCH 32.2 MCHC 32.3 RDW 13.8 Plt Count 203 MPV 9.7 Immature Gran % 0.3 Neutrophils % 70.4 Lymphocytes % 12.0 Monocytes % 11.5 Eosinophils % 5.0 Basophils % 0.8 Nucleated RBC % 0 Absolute Neutrophils 6.33 Absolute Lymphocytes 1.08 L Absolute Monocytes 1.03 H Absolute Eosinophils 0.45 Absolute Basophils 0.07 Sodium 130 L Potassium 5.5 H Chloride 95 L Carbon Dioxide 22.2 Anion Gap 12.8 H BUN 112 H* D Creatinine 6.5 H* D Estimated GFR/1.73 m2 8.49 Glucose 106 Calcium 9.7
[2021-01-19] MEDS: Budesonide/Formoterol 160/4.5 6 GM 60 PUFF INH IH (09:41)
[2021-01-19] MEDS: Heparin 5,000 UNITS/ML VIAL 5000 UNITS SC (10:01)
[2021-01-19] MEDS: Insulin Aspart 300 UNITS/3 ML PEN SC (11:37)
--- NOTE | 2021-01-19 12:09 | W.PM.DS.N ---
Date of service: 01/19/21 Time of Service: 12:09 DS: Diagnosis Discharge Diagnosis (1) Pneumonia: Status: Acute Asessment and Plan: Bilateral lower lobe infiltrates while with persistent hypoxemia but resolution of his hypercarbia. Patient is afebrile with improvement in his WBC count and gradual improvement in his mental status. Patient remains on Augmentin 500 mg orally daily and Levaquin 750 mg every 48 hours. He remains on his home inhalers of Symbicort along with supplemental DuoNeb treatments and supplemental oxygen status low flow nasal cannula. Patient was tested for Covid and found to be negative for SARS-CoV-2. (2) Hypercarbia: Status: Resolved Asessment and Plan: Improved and resolved after treatment overnight with BiPAP (3) Altered mental status: Status: Acute Asessment and Plan: Improving mental status. He is progressing back towards his baseline although he still thinks that he is in [facility] rather than [facility]. He is oriented to month and year as well as the fact that he is in the hospital. reports they recognize family members when he spoke with him on the phone. indicates that he frequently will revert back to where he is from [facility] or [facility] when he becomes ill. (4) Chronic renal insufficiency, stage V: Status: Chronic Asessment and Plan: End-stage renal disease requiring hemodialysis every Saturday, , Saturday. Discharge Plan Disposition Patient Disposition: [facility] Condition: Improving Discharge Details Reason For Visit: Pneumonia, Hypercapnea ESRD on Dialysis Admit Date/Time: 01/17/21 19:43 Admit Provider: Josh Crocker Attending Provider: Josh Crocker Primary Care Provider: Nayla Valles Hospital Course Hospital Course: 70-year-old male with end-stage renal disease on hemodialysis every Saturday//Saturday was at his outpatient hemodialysis treatment in [facility] when EMS was called because patient had become unresponsive. On arrival EMS noted that his glucose was in the 140s he was having sonorous, guppy breathing after completing a full run of his hemodialysis. He was found to have coarse rhonchi throughout both lung vidales associated with hypoxemia with O2 saturation in the mid 80s. Patient lives in [facility] with his Tere and usually gets his medical care through [facility] or [facility]. Patient brought to [facility] as this was the closest facility. In the emergency department he was placed on monitor worker where he was not noted to have any arrhythmias. Stat CT scan of his head without contrast and chest x-ray were performed. CT of his head showed atrophy but no acute intracranial abnormality. Chest x-ray was affordable x-ray with a very limited upright positioning and underpenetration. He has stable cardiomegaly and he has a subclavian catheter is unchanged in position. He has sternal wires and mediastinal clips from previous open heart surgery. He has right lower lobe linear density as well as a left midlung infiltrate. His labs on admission showed a white count of 16,000 unstable chronic anemia with a hemoglobin 11.3 g hematocrit 35%. CMP in admission showed chronic renal insufficiency with a BUN of 67 creatinine 4.0. Alkaline phosphatase is elevated to 132 but normal total bilirubin 0.4 normal transaminases. Procalcitonin was elevated at 0.5 blood gas on admission showed a pH 7.34 with a PCO2 of 52 PO2 of 64 on 2 L nasal cannula. Blood lactate slightly elevated at 1.6. He was placed on BiPAP mask and blood cultures were obtained and he was started on broad-spectrum antibiotics including Levaquin 750 mg IV. Urine cultures were also ordered and subsequently came back growing Raoutella, Ornithinolytica resistant to ampicillin and ampicillin/sulbactam but otherwise sensitive to all other cephalosporins, quinolones, bactrm and genatmicin and zosyn. Augmentin 500 mg daily was added to his regimen and Levaquin was changed to 750 mg every 48 hours. Patient's white cell count subsequently dropped to 12,305 the next morning by January 19, 2021 his white count was normalized to 8900. Patient was kept on all of his usual medications including those for his depression and anxiety as well as his cardiac meds and his COPD meds. He was placed on GI prophylaxis with Protonix was placed on subcutaneous heparin for DVT prophylaxis. However he has a known bilateral AKA is felt necessary to prevent any potential pelvic DVT developing. His mental status improves overnight after being on the BiPAP and by January 19, 2021 he was oriented to person, month/year, and hospital although he still thought he was in [facility] in [facility]. Per my discussion with his Tere he often will become confused when he gets ill with infections and will eventually go back to where he is from. He originally was born in [facility] but grew up in [facility]. On the evening of January 18, 2021 I discussed his case with Dr. Lalito Colón who accepted the patient in transfer to [facility] for continued treatment of his pneumonia as well as for inpatient hemodialysis. On the morning of January 19, 2021 that did not become available as of 12 noon although the patient has been accepted for transfer. Present time patient still requiring supplemental oxygen at 2 L/min per nasal cannula. Without supplemental oxygen his O2 saturation drops down into the mid 80s. Repeat labs at the time of this dictation his white count is down to 8900. Hemoglobin is 9.6 g hematocrit 29%. Platelet count 203,000. Sodium is 130, potassium 5.5, chloride 95, carbon dioxide 22, anion gap 12.8, BUN 112, creatinine 6.5. He is currently on Augmentin 500 mg once a day for potential aspiration organisms. He remains on Levaquin 750 mg orally every 48 hours. Next dose of Levaquin is due this evening. Because of his history of seizure disorder he remains on Keppra at 1050 mg twice a day. He is his home dose of sevelamer along with Phos gel and sodium bicarbonate tablets. He remains is on medications of trazodone and sertraline. He also remains on aspirin 81 mg daily along with Plavix 75 mg daily. His home dose of atorvastatin 80 mg. He is on Symbicort along with DuoNeb treatments every 6 hours as needed for dyspnea or wheezing. Patient is hemodynamically stable for transfer to a tertiary care medical floor for continued inpatient treatment of his pneumonia as well as for hemodialysis for his end-stage renal disease. patient is being transferred to [facility] to service of Dr. Lalito Colón Home Meds and New Rx's Prescriptions: No Action metolazone 2.5 MG tablet 2.5 mg PO PRN RF: 0 fluticasone propion-salmeterol [Advair Diskus] 1 EACH blister with device 1 puff Inhalation BID RF: 0 atorvastatin 80 MG tablet 80 mg PO DAILY RF: 0 ipratropium-albuterol 3 ML solution for nebulization 3 ml Inhalation Q6H PRN RF: 0 Lantus U-100 Insulin 100 UNIT/1 ML solution 4 unit SQ DAILY RF: 0 fexofenadine 60 MG tablet 60 mg PO DAILY RF: 0 valsartan 80 MG tablet 80 mg PO DAILY RF: 0 clopidogrel 75 MG tablet 75 mg PO DAILY RF: 0 acetaminophen 650 MG tablet 650 mg PO Q8H PRN RF: 0 levetiracetam [Keppra] 250 MG tablet 250 mg PO BID RF: 0 sodium bicarbonate 650 MG tablet 650 mg PO BID Qty: 2 RF: 0 nitroglycerin [Nitrostat] 0.4 MG tablet, sublingual 0.4 mg Sublingual ONCE RF: 0 docusate sodium 100 MG capsule 200 mg PO DAILY RF: 0 mometasone [Nasonex] 17 GM spray,non-aerosol 2 spry NS DAILY RF: 0 cholecalciferol (vitamin D3) [Vitamin D3] 1,000 UNIT capsule 1,000 unit PO DAILY RF: 0 Humalog U-100 Insulin 100 UNIT/1 ML cartridge 10 u SQ TIDWMEAL RF: 0 dutasteride [Avodart] 0.5 MG capsule 0.5 mg PO DAILY RF: 0 calcium acetate(phosphat bind) 667 MG capsule 1,334 mg PO TID RF: 0 ESSENTIAL Daily 1 EACH tablet 1 ea PO DAILY RF: 0 pantoprazole [Protonix] [address] for susp in packet 40 mg PO DAILY RF: 0 gabapentin 400 mg capsule RF: 0 gabapentin 100 mg capsule RF: 0 midodrine 10 mg tablet RF: 0 metoprolol tartrate 50 mg Tablet 12.5 mg PO BID RF: 0 aspirin [Aspir-81] 81 mg Tablet,Delayed Release (Dr/Ec) 81 mg PO DAILY RF: 0 nisoldipine 17 mg Tablet Extended Release 24 Hr 17 mg PO DAILY AM RF: 0 sertraline [Zoloft] 100 mg Tablet 125 mg PO DAILY AM RF: 0 trazodone 100 mg Tablet 100 mg PO HS RF: 0 sertraline [Zoloft] 25 mg Tablet 25 mg PO DAILY AM RF: 0 sevelamer carbonate [Renvela] 800 mg Tablet 800 mg PO TID RF: 0 Discharge Instructions Instructions: Aspiration Pneumonia (DC) Activity:: Activity as Tolerated Diet:: renal diet Discharge Orders Discharge Orders: Discharge Order (Routine); Ordered 01/19/21 Ordered By: Valentin Monsalve DS: Summary Time Spent with Patient providing and/or coordinating discharge services: Greater than 30 minutes Specific discharge activities: Multiple phone calls to tertiary care center, at [facility], because of the patient's , examination of patient and review of pertinent studies and placement orders Status at Discharge Functional status at discharge: bed bound Overall status at discharge: patient is not back to baseline Mental Status: other (Remains mildly confused but oriented to person, month/year, hospital) Speech and Movement: speech and movement normal Mood: congruent mood and other (Remains mildly confused but oriented to person, month/year, hospital) Affect: normal affect Exam Narrative Exam Narrative: Alert, oriented to person/month/year/ and knows that he is in the hospital but thinks that he is in [facility] in [place], [place] Neck: supple, no JVD Lungs: bibasilar rhonchi and wheezing; no rales Heart: RRR, no rub Abdomen: soft, scaphoid, nontender Psych Mental Status: other (Remains mildly confused but oriented to person, month/year, hospital) Speech and Movement: speech and movement normal Mood: congruent mood and other (Remains mildly confused but oriented to person, month/year, hospital) Affect: normal affect DS: Data Vitals/I&O Vitals and I&O: Vital Signs Temperature 37.2 C 01/19/21 08:15 Temperature Source Temporal Artery Scan 01/19/21 08:15 Pulse 72 01/19/21 08:52 Pulse Rhythm Regular 01/19/21 00:10 Pulse 75 01/19/21 08:01 Respiratory Rate 15 01/19/21 08:01 Respiratory Effort Non-Labored 01/19/21 08:15 Respiratory Depth Normal 01/19/21 08:15 Respiratory Pattern Normal 01/19/21 08:15 Blood Pressure 119/59 L 01/19/21 08:01 Blood Pressure Mean 75 01/19/21 08:01 Blood Pressure Position Supine 01/18/21 07:15 Pulse Oximetry 96 01/19/21 08:01 Oxygen Delivery Method Nasal Cannula 01/19/21 08:15 Oxygen Flow Rate 2 01/19/21 08:15 Fraction of Inspired Oxygen (FIO2) 30 01/18/21 07:32 Pain Level 0 01/19/21 08:15 Comment 01/18/21 16:31 Intake & Output 01/18/21 01/19/21 01/19/21 23:59 11:59 23:59 Intake Total 930 / 1860 440 / 440 Output Total 375 / 455 225 / 225 Balance 555 / 1405 215 / 215 Weight 63 kg Intake: Oral 930 / 1710 440 / 440 Output: Urine 375 / 455 225 / 225 Other: Urine Color Pale Light Jackeline Yellow Urine Appearance Cloudy Cloudy Sediment Sediment Purulent Purulent Comment est of 100ml cloudy thick urine on floor at this time. gupta clamp was open. above 100mls is an est of volume 75 cc of urine taken from old gupta prior to changing to new gupta catheter. Stool Occult Blood Negative Stool Size Small Large Stool Characteristics Soft Soft Formed Formed Data Completed and Pending Labs on day of discharge: Labs from last 24 hours 01/19/21 01/19/21 01/19/21 11:50 06:14 06:14 WBC 8.99 RBC 2.98 L Hgb 9.6 L Hct 29.7 L MCV 99.7 H MCH 32.2 MCHC 32.3 RDW 13.8 Plt Count 203 MPV 9.7 Immature Gran % 0.3 Neutrophils % 70.4 Lymphocytes % 12.0 Monocytes % 11.5 Eosinophils % 5.0 Basophils % 0.8 Nucleated RBC % 0 Absolute Neutrophils 6.33 Absolute Lymphocytes 1.08 L Absolute Monocytes 1.03 H Absolute Eosinophils 0.45 Absolute Basophils 0.07 Sodium 130 L Potassium 5.5 H Chloride 95 L Carbon Dioxide 22.2 Anion Gap 12.8 H BUN 112 H* D Creatinine 6.5 H* D Estimated GFR/1.73 m2 8.49 Glucose 106 Calcium 9.7 Ur Strep pneumoniae Ag Pending Preliminary micro results at discharge 01/17/21 15:05 Blood Culture - Preliminary Blood NO GROWTH 24 HOURS 01/17/21 14:53 Blood Culture - Preliminary Blood NO GROWTH 24 HOURS [facility] Medical History ASCVD (arteriosclerotic cardiovascular disease) CHF (congestive heart failure) Chronic renal insufficiency, stage V DM (diabetes mellitus) GERD (gastroesophageal reflux disease) Hyperlipidemia Hypertension Seizure disorder Surgical History Coronary Stent Tonsillectomy and adenoidectomy Vasectomy Social History Smoking/Tobacco Use Status: Former Tobacco Use Smoking risk assessment performed?: Yes Alcohol Intake: never Substance use type: does not use Do you feel safe at home: Yes Do you feel safe in your relationship?: Yes Additional Social history: pt lives at home with his
--- NOTE | 2021-01-19 16:20 | CMDISCH_ITS ---
- If Service Date Differs Date of service: 01/19/21 Time of Service: 16:20 Care Management Discharge Reason for Hospitalization: Hypercarbia. Pneumonia Discharge Plan: Wilfrid will be transferred to [facility] for dialysis today. he will folow up with their providers and plan of care. He will transport via ambulance coordinated by nursing supervisor plasma. Patient/Family Education Needs: per [facility] providers
--- NOTE | 2021-01-19 16:20 | PDOC.CMDIS ---
- If Service Date Differs Date of service: 01/19/21 Time of Service: 16:20 Care Management Discharge Reason for Hospitalization: Hypercarbia. Pneumonia Discharge Plan: Wilfrid will be transferred to [facility] for dialysis today. he will folow up with their providers and plan of care. He will transport via ambulance coordinated by nursing hatchery supervisor. Patient/Family Education Needs: per [facility] providers
[2021-01-20 23:28] LABS: Streptococcus Pneumoniae Ag, U Negative (Negative)
--- NOTE | 2021-01-21 07:11 | WOUNDCARE ---
Wound Care Report 01/29/21 1517- Pt ordered to have wound consult for change in dressing. Pt currently awaiting transfer to [facility]. Spoke with Primary nurse Zehra Donnelly who stated she placed Mepilex with border on wound this am, described as Stage 2 pressure injury. Due to imminent transfer status and dressing which aligns with standing order for current wound, I am deferring wound consult at this time.
== END 2021-01-19 15:35 | disposition short-term general hospital (02) | DRG 193 ==
LOC: ER 20:56 → ICU 21:04
PROVIDERS: Internal Medicine; Admitting Provider Family Medicine; Emergency Provider Emergency Medicine; PCP Internal Medicine; Visit Provider Family Medicine
DX: J18.9 Pneumonia, unspecified organism (principal); N18.6 End stage renal disease; I12.0 Hypertensive chronic kidney disease with stage 5 chronic kidney disease or end stage renal disease; I13.2 Hypertensive heart and chronic kidney disease with heart failure and with stage 5 chronic kidney disease, or end stage renal disease; F05 Delirium due to known physiological condition; Z89.612 Acquired absence of left leg above knee; Z89.611 Acquired absence of right leg above knee; E11.22 Type 2 diabetes mellitus with diabetic chronic kidney disease; I25.10 Atherosclerotic heart disease of native coronary artery without angina pectoris; K21.9 Gastro-esophageal reflux disease without esophagitis; E78.5 Hyperlipidemia, unspecified; I50.9 Heart failure, unspecified; Z99.2 Dependence on renal dialysis; L89.152 Pressure ulcer of sacral region, stage 2; Z20.822 Contact with and (suspected) exposure to COVID-19; R06.89 Other abnormalities of breathing; R09.02 Hypoxemia; G40.909 Epilepsy, unspecified, not intractable, without status epilepticus
CPT/HCPCS: 36415; 36416; 80048; 80053; 82805; 82962; 84145; 87040; 87077; 87635; 93005; 94640; 96365; 96366; 96375; 99285; 36600; 70450; 71045; 81003; 81015; 83605; 84484; 85025; 87086; 87186; 87899; 93010; 94667; 99223; 99233; 99239; J1644; J1953; J1956; J2060; J3490

== ENCOUNTER 2021-02-07 13:48 | Observation (INO) | payer MEDICARE, MEDICAID, SELFPAY ==
[2021-02-07] VITALS (54 sets, daily range): BP systolic 84–146; BP diastolic 34–114; PULSE 64–127; RESP 9–25; TEMP 36.3; O2SAT 83–99
--- NOTE | 2021-02-07 13:45 | RT.EKG_ITS ---
APPROVED REPORT Exam: Resting ECG Reason for Exam: unresponsiveness Patient Location: E HR:70 bpm ECG Measurements Heart Rate 70 AXIS CA 164 P 0 QRSd 112 QRS 13 QT 435 T 70 QTc 469 Conclusion Sinus rhythm...normal P axis, V-rate 60- 99
--- NOTE | 2021-02-07 14:00 | DI.RAD_ITS ---
Exam(s) XR CHEST 2V PA LATERAL EXAM: XR CHEST 2V PA LATERAL CLINICAL HISTORY: Syncope TECHNIQUE: 2D digital imaging was performed of the chest. Images were obtained. PA and lateral v iews were obtained. COMPARISON: CR,XR XR CHEST 2V PA LATERAL from 04/25/2019 CR XR PORTABLE CHEST AP from 08/16/2020 CR XR PORTABLE CHEST AP from 01/17/2021 FINDINGS: MEDIASTINUM: Normal. HEART: Normal. PULMONARY VASCULATURE: Atherosclerosis and tortuosity of the thoracic aorta. LUNGS: There are stable parenchymal changes in the lungs. No new focal consolidating infiltrates are seen. PLEURAL SPACE: There is blunting of the right costophrenic angle suggesting a small right pleural eff usion which is new. BONE:Within normal limits for the patient's age. Sternal wires are in place. The patient is status post CABG. OTHER FINDINGS:The left IJ catheter is stable in position. IMPRESSION: New possible small right pleural effusion. DATA REPOSITORY: RADIATION DOSE DELIVERED:
--- NOTE | 2021-02-07 14:00 | DI.CT_ITS ---
Exam(s) CT HEAD WO EXAM: CT HEAD WO CLINICAL HISTORY: AMS. TECHNIQUE: Imaging Protocol: Axial computed tomography images with coronal and sagittal reformatted images were created and reviewed COMPARISON: No exams were available for comparison FINDINGS: Ventricles and Extra axial spaces: Normal in size and morphology for the patient's age. Hemorrhage: None. Cerebral parenchyma: There are areas of decreased attenuation in the white matter most consistent wit h small vessel ischemic disease. No acute territorial infarct. Midline shift: None. Brainstem/Cerebellum: Normal. Calvarium: Normal. Visualized Paranasal sinuses/Mastoids: Mucous retention cysts or polyps in the left maxillary sinus a nd the right sphenoid sinus. The remaining visualized paranasal sinuses are clear as are the mastoid air cells. Soft Tissues: Unremarkable. IMPRESSION: 1. No acute intracranial process. 2. Results of this exam have been verbally communicated with provider. RADIATION DOSE DELIVERED: 900.46mGy.cm Total DLP DATA REPOSITORY: All CT scans at this facility are submitted to the National Radiology Data Registry (NRDR) Dose Index Registry (DIR) with the [employer] (A[employer]). RADIATION OPTIMIZATION: All CT scans at this facility use at least one of these dose optimization te chniques: automated exposure control; mA and/or kV adjustment per patient size (includes targeted exa ms where dose is matched to clinical indication); or iterative reconstruction.
--- NOTE | 2021-02-07 14:04 | W.ED.GENAD ---
Discharge Plan Discharge Details Chief Complaint: Dizzy/Sync Admit Date/Time: 02/07/21 23:19 Admit Provider: Saleem Acharya Attending Provider: Saleem Acharya Primary Care Provider: Nayla Valles ED Provider: Kiera Mathew Discharge Data Discharge Date/Time-TO BE ENTERED AT DEPARTURE: 02/08/21 01:26 Medical Decision Making <Bhavya Doll - Last Filed: 02/08/21 10:40> 70-year-old male presents to the ER via EMS status post dialysis treatment where he received his full dialysis today. He did have an episode of apparent syncope which she has had in the past. Stopped breathing for few seconds. Per EMS O2 sat 92 to 94% on 2 to 4 L which she is on at baseline. He is beginning to come around mentally. He is a bilateral [id number]-[id number] amputee, does have a shunt to his left anterior chest BGL prior to arrival is 168. Past medical history includes arteriosclerotic cardiovascular disease CHF, chronic renal insufficiency stage IV, diabetes, GERD, hyperlipidemia, hypertension and seizure disorder. He has had coronary stents placed. He is a full code at this time. He does live at home with his . He is responsive to verbal upon arrival vital signs are stable. 1430: Spoke with Tere Zarate Patients regarding patient case she reports Oxygen low during dialysis today at possibly 83%, She reports he would need an EMS transport home, in [place]. She reports that he goes to dialysis 3 times a week Saturday. His Casanova was placed at [facility] and or hospitalization on 01/20/2021. He does have [facility] home health and help at home weekly. She has noticed cloudy urine output in the Casanova for the last week. She does reiterate that patient is a full code at this time. At this time WBCs are 12.19 hemoglobin 11.1 hematocrit 35.3, absolute neutrophils 10.01, CBC largely within normal limits. pH 7.40 PCO2 45 PO2 72 bicarb 20 CO2 is 25 O2 sat 94% base excess 3 VBG. BUN 66 creatinine 3.5 GFR 17.35 which is improved from GFR of 8 on previous records. Glucose is 176. AST 20 ALT 13 alk phos 254 troponin less than 0.05 protein 9.9 albumin 2.9 EXAM: CT HEAD WO CLINICAL HISTORY: AMS. TECHNIQUE: Imaging Protocol: Axial computed tomography images with coronal and sagittal reformatted images were created and reviewed COMPARISON: No exams were available for comparison FINDINGS: Ventricles and Extra axial spaces: Normal in size and morphology for the patient's age. Hemorrhage: None. Cerebral parenchyma: There are areas of decreased attenuation in the white matter most consistent with small vessel ischemic disease. No acute territorial infarct. Midline shift: None. Brainstem/Cerebellum: Normal. Calvarium: Normal. Visualized Paranasal sinuses/Mastoids: Mucous retention cysts or polyps in the left maxillary sinus and the right sphenoid sinus. The remaining visualized paranasal sinuses are clear as are the mastoid air cells. Soft Tissues: Unremarkable. IMPRESSION: 1. No acute intracranial process. 2. Results of this exam have been verbally communicated with provider. XR CHEST 2V PA LATERAL EXAM: XR CHEST 2V PA LATERAL CLINICAL HISTORY: Syncope TECHNIQUE: 2D digital imaging was performed of the chest. Images were obtained. PA and lateral views were obtained. COMPARISON: CR,XR XR CHEST 2V PA LATERAL from 04/25/2019 CR XR PORTABLE CHEST AP from 08/16/2020 CR XR PORTABLE CHEST AP from 01/17/2021 FINDINGS: MEDIASTINUM: Normal. HEART: Normal. PULMONARY VASCULATURE: Atherosclerosis and tortuosity of the thoracic aorta. LUNGS: There are stable parenchymal changes in the lungs. No new focal consolidating infiltrates are seen. PLEURAL SPACE: There is blunting of the right costophrenic angle suggesting a small right pleural effusion which is new. BONE:Within normal limits for the patient's age. Sternal wires are in place. The patient is status post CABG. OTHER FINDINGS:The left IJ catheter is stable in position. IMPRESSION: New possible small right pleural effusion. 1532: Call made to [facility] transfer center regarding possible transfer request for patient at this time and to check bed availability for step down. Patient has small right pleural effusion, urinary tract infection, dialysis patient. 1540: Spoke to [facility] transfer Center no med surg beds or step down beds at this time. Casanova catheter attempted at replacement by staff educator, unsucessful at this time. 1654: Call made to [facility] transfer center only accepting CVA, STEMI, emergent cases at this time. Care is to be handed off to oncoming provider Kiera Mathew pending admission for observation disposition. At this time x-ray of pelvis is pending and urinalysis pending. <EDGARDO Valdovinos - Last Filed: 02/08/21 00:02> This case presented a significant challenge secondary to barrier with dialysis, I received patient in signout from Janine Mercado, nurse practitioner acutely delirious Negative CT scan and inconclusive work-up I evaluated the patient and he had tenderness to his abdomen for CT abdomen and pelvis was ordered Casanova catheter has been changed prior to my evaluation and urinalysis pending at this time Upon wrist, patient is much more lucid than initial presentation CT scan does not show acute intra-abdominal pathology but does show aspiration pneumonia Given patient's recent period of apnea with acute alteration in mental status I think overnight observation is reasonable Her hospital unfortunately does not have inpatient dialysis capabilities and therefore approximately 12 hospitals were called all of which were unable to accept this patient I spent several hours making phone calls and caring for this patient, this required a great number of resources Nursing service transformer repair supervisor was involved in I spoke with the admitting hospitalist and while I understand that this is not a patient we would typically admit, secondary to wish to remain close to his and lack of ability to transfer this patient secondary to capacity she is at other tertiary care hospital, patient will remain in the hospital at the consent of the church communications administrator on-call, Celia I think this is a reasonable admission for observation White blood cell count of 12,000, CT abdomen and pelvis with indwelling Casanova catheter, urinalysis shows evidence of infection although patient is catheter dependent He has aspiration pneumonia with a lactate of 1.5 and a white blood cell count of 12.5, increased from prior He was treated with Zosyn empirically and looks like he was placed on Levaquin during his last hospitalization Dr. Polanco has graciously consented to admit this patient for hospital admission at this time patient is agreeable to admission HPI <Bhavya Doll - Last Filed: 02/08/21 10:40> General Mode of arrival: EMS. Date/Time Provider Initiated Documentation: 02/07/21 13:49. Limitations to Documentation: altered mental status and physical limitation. Information obtained by: patient, EMS and old records reviewed. HPI Narrative: 70-year-old male presents to the ER via EMS status post dialysis treatment where he received his full dialysis today. He did have an episode of apparent syncope which she has had in the past. Stopped breathing for few seconds. Per EMS O2 sat 92 to 94% on 2 to 4 L which she is on at baseline. He is beginning to come around mentally. He is a bilateral [id number] amputee, does have a shunt to his left anterior chest BGL prior to arrival is 168. Past medical history includes arteriosclerotic cardiovascular disease CHF, chronic renal insufficiency stage IV, diabetes, GERD, hyperlipidemia, hypertension and seizure disorder. He has had coronary stents placed. He is a full code at this time. He does live at home with his . He is responsive to verbal upon arrival vital signs are stable. Related Data Home Medications Medication Instructions Recorded Confirmed ESSENTIAL Daily 1 ea PO DAILY NS 04/18/15 02/26/19 Humalog U-100 Insulin 10 u SQ TIDWMEAL NS 04/18/15 02/07/21 Lantus U-100 Insulin 4 unit SQ DAILY NS 04/18/15 02/07/21 acetaminophen 650 mg PO Q8H PRN NS 04/18/15 02/07/21 atorvastatin 80 mg PO DAILY tab-cap NS 04/18/15 02/08/21 calcium acetate(phosphat bind) 1,334 mg PO TID tab-cap NS 04/18/15 04/25/19 cholecalciferol (vitamin D3) 1,000 unit PO DAILY NS 04/18/15 04/25/19 [Vitamin D3] clopidogrel 75 mg PO DAILY tab-cap NS 04/18/15 02/07/21 docusate sodium 200 mg PO DAILY tab-cap NS 04/18/15 01/17/21 dutasteride [Avodart] 0.5 mg PO DAILY tab-cap NS 04/18/15 01/18/21 fexofenadine 60 mg PO DAILY NS 04/18/15 02/26/19 fluticasone propion-salmeterol 1 puff INHALATION BID disk NS 04/18/15 02/07/21 [Advair Diskus] ipratropium-albuterol 3 ml INHALATION Q6H PRN NS 04/18/15 02/07/21 levetiracetam [Keppra] 250 mg PO BID NS 04/18/15 02/08/21 metolazone 2.5 mg PO PRN tab-cap NS 04/18/15 01/18/21 mometasone [Nasonex] 2 spry NS DAILY spray NS 04/18/15 02/26/19 nitroglycerin [Nitrostat] 0.4 mg SUBLINGUAL ONCE NS 04/18/15 02/08/21 pantoprazole [Protonix] 40 mg PO DAILY packet NS 04/18/15 02/08/21 sodium bicarbonate 650 mg PO BID #2 NS 04/18/15 01/17/21 valsartan 80 mg PO DAILY NS 04/18/15 01/18/21 aspirin [Aspir-81] 81 mg PO DAILY 04/25/19 02/08/21 metoprolol tartrate 12.5 mg PO BID 04/25/19 02/07/21 nisoldipine 17 mg PO DAILY AM 04/25/19 01/17/21 sertraline [Zoloft] 25 mg PO DAILY AM 04/25/19 02/07/21 sertraline [Zoloft] 125 mg PO DAILY AM 04/25/19 02/07/21 sevelamer carbonate [Renvela] 800 mg PO TID 04/25/19 02/07/21 trazodone 100 mg PO HS 04/25/19 02/08/21 gabapentin 200 mg PO QNOON 01/17/21 02/08/21 gabapentin 800 mg PO HS 01/17/21 02/08/21 midodrine 10 mg PO BID 01/17/21 02/07/21 tamsulosin 0.4 mg PO HS 02/07/21 02/07/21 gabapentin 200 mg PO DAILY AM 02/08/21 02/08/21 oxycodone 5 mg PO Q4H PRN PRN 02/08/21 02/08/21 Allergies Allergy/AdvReac Type Severity Reaction Status Date / Time adhesive tape Allergy Unverified 02/07/21 13:57 Iodinated Contrast Media Allergy Unverified 02/07/21 13:57 [Iodinated Contrast Media - IV Dye] General Stated Complaint: Dizzy/Sync MADELAINE: 2 Review of Systems <Bhavya Doll - Last Filed: 02/08/21 10:40> All systems reviewed & are unremarkable except as noted in HPI and below PFSH <Bhavya Doll - Last Filed: 02/08/21 10:40> Medical History ASCVD (arteriosclerotic cardiovascular disease) CHF (congestive heart failure) Chronic renal insufficiency, stage V DM (diabetes mellitus) GERD (gastroesophageal reflux disease) Hyperlipidemia Hypertension Seizure disorder Surgical History Coronary Stent Tonsillectomy and adenoidectomy Vasectomy Social History Smoking/Tobacco Use Status: Former Tobacco Use Smoking risk assessment performed?: Yes Alcohol Intake: never Substance use type: does not use Do you feel safe at home: Yes Do you feel safe in your relationship?: Yes Additional Social history: pt lives at home with his Exam <Bhavya Doll - Last Filed: 02/08/21 10:40> GI Other: Abdomen: Soft, nondistended nontender to palpation all 4 quadrants. Other: Patient does have an indwelling Casanova catheter in place with cloudy purulent urine output noted. Course <Bhavya Doll - Last Filed: 02/08/21 10:40> Vital Signs Vital signs: Vital Signs Temperature 36.3 C L 02/07/21 13:48 Pulse 73 02/07/21 13:48 Respiratory Rate 19 02/07/21 13:48 Blood Pressure 112/53 L 02/07/21 13:48 Pulse Oximetry 98 02/07/21 13:48 Temperature 36.3 C L 02/07/21 13:48 Temperature Source Temporal Artery Scan 02/07/21 13:48 Pulse 73 02/07/21 13:48 Respiratory Rate 21 02/07/21 13:55 Respiratory Effort 02/07/21 13:55 Respiratory Depth Normal 02/07/21 13:55 Respiratory Pattern Normal 02/07/21 13:55 Blood Pressure 112/53 L 02/07/21 13:48 Blood Pressure Position Sitting 02/07/21 13:48 Pulse Oximetry 98 02/07/21 13:48 Oxygen Delivery Method Nasal Cannula 02/07/21 13:48 Oxygen Flow Rate 4 02/07/21 13:48 Pain Level 0 02/07/21 13:48 Sign Out <Bhavya Doll - Last Filed: 02/08/21 10:40> Sign Out Data: Sign Out Comment: AMS post dialysis treatment today, Probable UTI, New right pleural effusion. Recommend admission for observation and further eval. Tere lives in [place]. Last updated by Bhavya Doll at 02/07/21 17:10
[2021-02-07 14:11] LABS: BE (Venous) 3 mmol/L (-2-3); HCO3 (Venous) 28 mmol/L (23-28); O2 Sat (Venous) 94 %; TCO2 (Venous) 25 mmol/L (24-29); pCO2 (Venous) 45 mmHg (41-51); pO2 (Venous) 72 mmHg
[2021-02-07 14:13] LABS: Abs Immature Grans 0.09 10^3/uL (0.0-0.06); Absolute Basophil Count 0.09 10^3/uL (0.0-0.2); Absolute Eosinophil Count 0.33 10^3/uL (0.0-0.7); Absolute Lymphocyte Count 0.78 10^3/uL (1.2-3.4); Absolute Neutrophil Count 10.01 10^3/uL (1.2-6.7); Basophils % 0.7; Eosinophils % 2.7; HCT 35.3 % (40.0-50.0); HGB 11.1 g/dL (13.5-17.5); Immature Grans % 0.7; Lymphocytes % 6.4; MCH 32.4 pg (27.0-33.0); MCHC 31.4 % (32.0-36.0); MCV 102.9 fL (80-95); MPV 9.4 fL (8.0-11.0); Monocytes % 7.4; Neutrophils % 82.1; Nucleated RBC 0 %; Platelet Count 184 10^3/uL (130-400); RBC 3.43 10^6/uL (4.36-5.78); RDW 14.2 % (11.8-14.1); RDW-SD 53.2 fL; WBC 12.19 10^3/uL (4.4-10.8)
[2021-02-07 14:31] LABS: ALT 13 U/L (16-63); AST 20 U/L (15-37); Albumin 2.9 g/dL (3.4-5.0); Alkaline Phosphatase 254 U/L (46-116); Anion Gap 9.4 mmol/L (3-11); BUN 66 mg/dL (7-18); Bilirubin, Total 0.4 mg/dL (0.2-1.0); CO2 28.6 mmol/L (21.0-32.0); CREATININE 3.5 mg/dL (0.70-1.30); Calcium 9.5 mg/dL (8.5-10.1); Chloride 99 mmol/L (98-107); Estimated GFR 17.35 (mL/min/1.73m2); Glucose 176 mg/dL (74-106); Magnesium 2.8 mg/dL (1.8-2.4); Potassium 3.5 mmol/L (3.5-5.1); Sodium 137 mmol/L (136-145); Total Protein 9.9 g/dL (6.4-8.2); Troponin I < 0.05 ng/mL (<0.06)
[2021-02-07 14:39] LABS: INR 1.2 (0.9-1.1); Prothrombin Time 12.2 sec (9.3-11.0)
[2021-02-07] MEDS: Lidocaine 2% Jelly 6 ML SYR ×2 (16:08)
--- NOTE | 2021-02-07 17:00 | RT.EKG_ITS ---
APPROVED REPORT Exam: Resting ECG Reason for Exam: altered mental status Patient Location: E HR:85 bpm ECG Measurements Heart Rate 85 AXIS GA 154 P 73 QRSd 98 QRS 57 QT 409 T 58 QTc 487 Conclusion Sinus rhythm atrial enlargement.
--- NOTE | 2021-02-07 17:00 | DI.CT_ITS ---
Exam(s) CT ABDOMEN PELVIS WO EXAM: CT ABDOMEN PELVIS WO CLINICAL HISTORY: abdominal pain, gupta catheter, dialysis. TECHNIQUE: Imaging Protocol: Axial computed tomography images with coronal and sagittal reformatted images were created and reviewed. COMPARISON: No exams were available for comparison FINDINGS: The examination is limited due to patient motion artifact. ABDOMEN: Lung Bases: Cardiomegaly. Mitral valve calcifications. There are bilateral lower lobe infiltrates, right greater than left. There is mucous plugging of right lower lobe bronchi. Pleural calcificatio ns are seen on the right. Liver: Normal density. No measurable mass. Mild hepatomegaly. Gallbladder and biliary tract: Cholelithiasis. No biliary ductal dilatation. Pancreas: Normal density, no abnormal calcifications or inflammatory process. Spleen: Normal. Kidneys: Normal size, contour and axis.No radiodense stones or obstructive uropathy. Multiple cortica l hypodensities in the kidneys bilaterally. The largest is in the midpole of the left kidney and maximo sures 3.3 cm x 3 cm. There is a 1.6 cm hyperdense cortical lesion in the midpole of the right kidney . This may represent a complex cyst. Adrenal glands: No mass is seen. Lymph nodes: Within normal limits. Abdominal Aorta: Abdominal portion non-dilated. There is marked atherosclerosis. PELVIS: Bladder:There is a Gupta catheter within the urinary bladder. The urinary bladder is collapsed. Thi ckening of the wall of the urinary bladder is noted, this may be due to underdistention. Bowel: No obstruction or bowel wall thickening. Appendix is unremarkable. There is diverticulosis se en in the colon but no evidence of acute diverticulitis. There is a large amount of stool throughout the colon which may reflect constipation. Peritoneal cavity: No ascites, collection or mesenteric inflammatory response. No free air. Reproductive organs: Enlarged prostate gland. Bones: Within normal limits. Soft Tissues: Right gynecomastia. IMPRESSION: 1. Bilateral basilar infiltrate suspicious for pneumonia, right greater than left. Aspiration should be considered. 2. Large amount of stool throughout the colon suggesting constipation. 3. Bilateral simple renal cysts, as well as a hyperdense right renal cyst which may contain hemorrhag ic or pronation could proteinaceous contents. 4. Cholelithiasis. No biliary ductal dilatation. 5. Urinary bladder wall thickening in a decompressed urinary bladder with a Gupta catheter present. RADIATION DOSE DELIVERED: 872.67mGy.cm Total DLP DATA REPOSITORY: All CT scans at this facility are submitted to the National Radiology Data Registry (NRDR) Dose Index Registry (DIR) with the [employer] (A[employer]). RADIATION OPTIMIZATION: All CT scans at this facility use at least one of these dose optimization te chniques: automated exposure control; mA and/or kV adjustment per patient size (includes targeted exa ms where dose is matched to clinical indication); or iterative reconstruction.
[2021-02-07] MEDS: Normal Saline 500 ML IV ×2 (17:24→23:05)
[2021-02-07 17:37] LABS: Troponin I < 0.05 ng/mL (<0.06)
--- NOTE | 2021-02-07 19:07 | DI.VRAD_ITS ---
PROCEDURE INFORMATION: Exam: CT Abdomen And Pelvis Without Contrast Exam date and time: 02/07/2021 6:34 PM Age: 70 years old Clinical indication: Other: Abdominal pain, gupta catheter, dialysis TECHNIQUE: Imaging protocol: Computed tomography of the abdomen and pelvis without contrast. COMPARISON: CR XR CHEST 2V PA LATERAL 02/07/2021 2:58 PM FINDINGS: Tubes, catheters and devices: Tip of the left internal jugular dialysis catheter in the right atrium. Lungs: Bilateral lower lobe aspirations, right greater than left. Near complete mucous plugging of the right lower lobe bronchi. Heart: Postoperative changes of CABG. Coronary artery stents. Mild cardiomegaly. Mild mitral annular calcifications. Liver: Normal. No mass. Gallbladder and bile ducts: Tiny layering gallstones. No CT evidence for cholecystitis. Pancreas: Normal. No ductal dilation. Spleen: Normal. No splenomegaly. Adrenal glands: Normal. No mass. Kidneys and ureters: Bilateral mildly atrophic kidneys with multiple simple as well as hyperdense renal cortical cysts. The largest of the lateral interpolar left simple renal cysts measures 3.2 cm. Largest lateral upper pole right hyperdense cyst measures 1.6 cm with hemorrhagic or proteinaceous material. Stomach and bowel: Colonic diverticula without evidence for acute diverticulitis. There is moderate colonic stool burden. No obstruction. No mucosal thickening. Appendix: Appendix is normal in caliber. No periappendiceal edema. No findings to suggest acute appendicitis. Intraperitoneal space: Unremarkable. No free air. No significant fluid collection. Vasculature: Severe atherosclerotic vascular calcifications of the bilateral renal arteries. Severe calcifications of the abdominal aorta and the bilateral iliac arteries. No abdominal aortic aneurysm. Heavily calcified mesenteric artery branches. Bilateral common iliac to external iliac artery stents. Left proximal superficial femoral artery stent. Lymph nodes: Unremarkable. No enlarged lymph nodes. Urinary bladder: Gupta catheter in a decompressed urinary bladder. Mild urinary bladder wall thickening. Reproductive: Prostate gland enlargement with central calcifications. Bones/joints: Median sternotomy wires. Severe generalized osteopenia. Bilateral L5 pars defects without significant anterolisthesis. Chronic mild retrolisthesis L3 over L4 and L2 over L3 with severe L2-L3 disc space narrowing and subchondral erosions. Soft tissues: Stable postoperative changes of bilateral groin cutdown vascular surgery sites. No evidence for hematoma or seroma. IMPRESSION: 1. Bilateral lower lobe aspirations, right greater than left. Correlate clinically with aspiration pneumonias. 2. Moderate colonic stool burden which may correlate with clinical symptoms of constipation. 3. Gupta catheter balloon within the decompressed urinary bladder with mild urinary bladder wall thickening. 4. Bilateral atrophic [place] kidneys with multiple simple renal cortical cysts as well as hyperdense hemorrhagic or proteinaceous cyst. 5. Cholelithiasis. Dictated and Authenticated by: Betzy Esquivel MD. Ordering:KAMERON Qureshi MD
[2021-02-07 20:26] LABS: Lactate 1.5 mmol/L (0.6-1.4)
[2021-02-07] MEDS: PIPERACILLIN/TAZO 3.375 GM in Normal Saline 50 ML IVPB (21:08)
[2021-02-07 21:57] LABS: Bilirubin Negative (Negative); Blood Large (Negative); Glucose 100 mg/dL (Negative); Ketones Negative (Negative); Leukocyte Esterase Large (Negative); Nitrite Negative (Negative); Specific Gravity 1.025 (1.005-1.025); Urobilinogen 0.2 EU/dL (Up TO 0.2)
[2021-02-07 21:59] LABS: Clarity Cloudy (Clear)
[2021-02-07 22:01] LABS: WBC >50 HPF (0-5)
[2021-02-07 22:02] LABS: C & S Indicated? Yes
[2021-02-07 22:16] LABS: *AMPHETAMINES SCREEN URINE Negative (Negative); *BARBITURATES SCREEN URINE Negative (Negative); *BENZODIAZEPINES SCREEN URINE Negative (Negative); Cannabinoids THC Negative (Negative); Cocaine Screen,Urine Negative (Negative); METHADONE URINE SCREEN Negative (Negative); OPIATES URINE SCREEN Negative (Negative)
[2021-02-07 22:17] LABS: Tricyclic Antidepressants Negative (Negative)
[2021-02-07 22:51] LABS: Source Nasal/Nares
--- NOTE | 2021-02-07 23:39 | W.PM.HP.N ---
Date of service: 02/07/21 Time of Service: 23:39 Assessment and Plan Assessment and plan (1) Pneumonia: Status: Acute Assessment and plan: He will be continued on intravenous antibiotics piperacillin tazobactam. Qualifiers: Pneumonia type: due to unspecified organism Laterality: bilateral Lung location: lower lobe of lung Qualified Code(s): J18.9 - Pneumonia, unspecified organism (2) Leukocytosis: Status: Acute Assessment and plan: His blood count and labs will be checked again tomorrow. (3) Altered mental status: Status: Acute Assessment and plan: This likely is a toxic metabolic encephalopathy. We will watch his status. Qualifiers: Altered mental status type: delirium Qualified Code(s): R41.0 - Disorientation, unspecified (4) Chronic renal insufficiency, stage V: Status: Chronic Assessment and plan: If he is not ready to be discharged tomorrow he will need to be transferred to another institution where they can have inpatient dialysis in 2 days. No other hospitals would take him today. History of Present Illness History of Present Illness Chief Complaint: Altered mental status Narrative: This 70-year-old male was at dialysis earlier today. He normally goes Tuesdays and Saturdays. This was his normal day at dialysis but there he developed a syncopal episode and was brought here to be seen. Evaluation emergency department was extensive and the only abnormality was found was that he has what appears to be aspiration pneumonia. He was treated with piperacillin/tazobactam. His mental status has improved slightly since coming to the department. Because of his renal failure it was attempted to transfer him to another hospital for further care as we generally do not take care of dialysis patients here. It did not appear that he had any seizures today. He does have a history of seizure disorder as well as diabetes. He has similar episode here few weeks ago and was transferred to [facility]. Those records are not available at this time but they are working on getting this print out. While at dialysis it was reported that he had apnea. He does live with his but she is not here at the present time. He cannot provide much history except he does whisper his name and says he is in the hospital. He does not know the day of the week or month. Review of Systems Unobtainable due to mental condition [facility] Medical History ASCVD (arteriosclerotic cardiovascular disease) CHF (congestive heart failure) Chronic renal insufficiency, stage V DM (diabetes mellitus) GERD (gastroesophageal reflux disease) Hyperlipidemia Hypertension Seizure disorder Surgical History Coronary Stent Tonsillectomy and adenoidectomy Vasectomy Social History Smoking/Tobacco Use Status: Former Tobacco Use Smoking risk assessment performed?: Yes Alcohol Intake: never Substance use type: does not use Do you feel safe at home: Yes Do you feel safe in your relationship?: Yes Additional Social history: pt lives at home with his Meds Allergies and Home Medications Allergies Allergy/AdvReac Type Severity Reaction Status Date / Time adhesive tape Allergy Unverified 02/07/21 13:57 Iodinated Contrast Media Allergy Unverified 02/07/21 13:57 [Iodinated Contrast Media - IV Dye] Home Medications Medication Instructions Recorded Confirmed Type ESSENTIAL Daily 1 ea PO DAILY NS 04/18/15 02/26/19 History Humalog U-100 Insulin 10 u SQ TIDWMEAL NS 04/18/15 02/07/21 History Lantus U-100 Insulin 4 unit SQ DAILY NS 04/18/15 02/07/21 History acetaminophen 650 mg PO Q8H PRN NS 04/18/15 02/07/21 History atorvastatin 80 mg PO DAILY tab-cap NS 04/18/15 01/17/21 History calcium acetate(phosphat bind) 1,334 mg PO TID tab-cap NS 04/18/15 04/25/19 History cholecalciferol (vitamin D3) 1,000 unit PO DAILY NS 04/18/15 04/25/19 History [Vitamin D3] clopidogrel 75 mg PO DAILY tab-cap NS 04/18/15 02/07/21 History docusate sodium 200 mg PO DAILY tab-cap NS 04/18/15 01/17/21 History dutasteride [Avodart] 0.5 mg PO DAILY tab-cap NS 04/18/15 01/18/21 History fexofenadine 60 mg PO DAILY NS 04/18/15 02/26/19 History fluticasone propion-salmeterol 1 puff INHALATION BID disk NS 04/18/15 02/07/21 History [Advair Diskus] ipratropium-albuterol 3 ml INHALATION Q6H PRN NS 04/18/15 02/07/21 History levetiracetam [Keppra] 250 mg PO BID NS 04/18/15 01/17/21 History metolazone 2.5 mg PO PRN tab-cap NS 04/18/15 01/18/21 History mometasone [Nasonex] 2 spry NS DAILY spray NS 04/18/15 02/26/19 History nitroglycerin [Nitrostat] 0.4 mg SUBLINGUAL ONCE NS 04/18/15 01/17/21 History pantoprazole [Protonix] 40 mg PO DAILY packet NS 04/18/15 01/17/21 History sodium bicarbonate 650 mg PO BID #2 NS 04/18/15 01/17/21 History valsartan 80 mg PO DAILY NS 04/18/15 01/18/21 History aspirin [Aspir-81] 81 mg PO DAILY 04/25/19 01/17/21 History metoprolol tartrate 12.5 mg PO BID 04/25/19 02/07/21 History nisoldipine 17 mg PO DAILY AM 04/25/19 01/17/21 History sertraline [Zoloft] 25 mg PO DAILY AM 04/25/19 02/07/21 History sertraline [Zoloft] 125 mg PO DAILY AM 04/25/19 02/07/21 History sevelamer carbonate [Renvela] 800 mg PO TID 04/25/19 02/07/21 History trazodone 100 mg PO HS 04/25/19 01/17/21 History gabapentin 100 mg PO DAILY 01/17/21 02/07/21 History gabapentin 400 mg PO HS 01/17/21 02/07/21 History midodrine 10 mg PO BID 01/17/21 02/07/21 History tamsulosin 0.4 mg PO HS 02/07/21 02/07/21 History Exam Const General: no acute distress, frail appearing and ill appearing Resp Effort & Inspection: normal respiratory effort Auscultation: no rales, no rhonchi and no wheezes Cardio Jugular venous pressure: no JVD Rate: regular rate Rhythm: regular rhythm Heart Sounds: S1 normal, S2 normal, no gallops and no murmurs GI Inspection: normal to inspection and non-distended Palpation: soft, no hepatosplenomegaly and not firm Extrem Other: Bilateral lower extremity amputations. Results Labs Result diagrams: 02/07/21 14:00 02/07/21 14:00 Labs: Laboratory Results - last 24 hr 02/07/21 02/07/21 02/07/21 14:00 14:00 14:00 WBC 12.19 H RBC 3.43 L Hgb 11.1 L Hct 35.3 L MCV 102.9 H MCH 32.4 MCHC 31.4 L RDW 14.2 H Plt Count 184 MPV 9.4 Immature Gran % 0.7 Neutrophils % 82.1 Lymphocytes % 6.4 Monocytes % 7.4 Eosinophils % 2.7 Basophils % 0.7 Nucleated RBC % 0 Absolute Neutrophils 10.01 H Absolute Lymphocytes 0.78 L Absolute Monocytes 0.90 H Absolute Eosinophils 0.33 Absolute Basophils 0.09 PT INR VBG pH 7.40 VBG pCO2 45 VBG pO2 72 VBG HCO3 28 VBG Total CO2 25 VBG O2 Saturation 94 VBG Base Excess 3 VBG Lactate Sodium 137 Potassium 3.5 Chloride 99 Carbon Dioxide 28.6 Anion Gap 9.4 BUN 66 H Creatinine 3.5 H Estimated GFR/1.73 m2 17.35 Glucose 176 H Calcium 9.5 Magnesium 2.8 H Total Bilirubin 0.4 AST 20 ALT 13 L Alkaline Phosphatase 254 H Troponin I < 0.05 Total Protein 9.9 H Albumin 2.9 L Urine Color Urine Clarity Urine pH Ur Specific [place] Urine Protein Urine Ketones Urine Blood Urine Nitrite Urine Bilirubin Urine Urobilinogen Ur Leukocyte Esterase Urine RBC Urine WBC Ur Epithelial Cells Urine Crystals Urine Bacteria Urine Mucus Ur Culture Indicated? Urine Glucose Urine Opiates Screen Urine Methadone Screen Ur Barbiturates Screen Ur Tricyclics Screen Ur Amphetamines Screen U Benzodiazepines Scrn Urine Cocaine Screen Ur THC Screen COVID-19 Source 02/07/21 02/07/21 02/07/21 14:02 17:00 20:13 WBC RBC Hgb Hct MCV MCH MCHC RDW Plt Count MPV Immature Gran % Neutrophils % Lymphocytes % Monocytes % Eosinophils % Basophils % Nucleated RBC % Absolute Neutrophils Absolute Lymphocytes Absolute Monocytes Absolute Eosinophils Absolute Basophils PT 12.2 H INR 1.2 H VBG pH VBG pCO2 VBG pO2 VBG HCO3 VBG Total CO2 VBG O2 Saturation VBG Base Excess VBG Lactate 1.5 H Sodium Potassium Chloride Carbon Dioxide Anion Gap BUN Creatinine Estimated GFR/1.73 m2 Glucose Calcium Magnesium Total Bilirubin AST ALT Alkaline Phosphatase Troponin I < 0.05 Total Protein Albumin Urine Color Urine Clarity Urine pH Ur Specific [place] Urine Protein Urine Ketones Urine Blood Urine Nitrite Urine Bilirubin Urine Urobilinogen Ur Leukocyte Esterase Urine RBC Urine WBC Ur Epithelial Cells Urine Crystals Urine Bacteria Urine Mucus Ur Culture Indicated? Urine Glucose Urine Opiates Screen Urine Methadone Screen Ur Barbiturates Screen Ur Tricyclics Screen Ur Amphetamines Screen U Benzodiazepines Scrn Urine Cocaine Screen Ur THC Screen COVID-19 Source 02/07/21 02/07/21 02/07/21 21:42 21:42 22:44 WBC RBC Hgb Hct MCV MCH MCHC RDW Plt Count MPV Immature Gran % Neutrophils % Lymphocytes % Monocytes % Eosinophils % Basophils % Nucleated RBC % Absolute Neutrophils Absolute Lymphocytes Absolute Monocytes Absolute Eosinophils Absolute Basophils PT INR VBG pH VBG pCO2 VBG pO2 VBG HCO3 VBG Total CO2 VBG O2 Saturation VBG Base Excess VBG Lactate Sodium Potassium Chloride Carbon Dioxide Anion Gap BUN Creatinine Estimated GFR/1.73 m2 Glucose Calcium Magnesium Total Bilirubin AST ALT Alkaline Phosphatase Troponin I Total Protein Albumin Urine Color Yellow Urine Clarity Cloudy Urine pH 6.0 Ur Specific [place] 1.025 Urine Protein >=300 H Urine Ketones Negative Urine Blood Large H Urine Nitrite Negative Urine Bilirubin Negative Urine Urobilinogen 0.2 Ur Leukocyte Esterase Large H Urine RBC Urine WBC >50 H Ur Epithelial Cells Not Applicable Urine Crystals Not Applicable Urine Bacteria Urine Mucus Not Applicable Ur Culture Indicated? Yes Urine Glucose 100 Urine Opiates Screen Negative Urine Methadone Screen Negative Ur Barbiturates Screen Negative Ur Tricyclics Screen Negative Ur Amphetamines Screen Negative U Benzodiazepines Scrn Negative Urine Cocaine Screen Negative Ur THC Screen Negative COVID-19 Source Nasal/Nares Last Vital Signs Temp 36.3 C L 02/07/21 13:48 Pulse 114 H 02/07/21 16:37 Resp 19 02/07/21 17:40 BP 96/71 L 02/07/21 16:37 Pulse Ox 92 02/07/21 16:50
[2021-02-07 23:43] LABS: COVID-19 PCR Negative (Negative)
[2021-02-08] VITALS (20 sets, daily range): BP systolic 92–146; BP diastolic 37–74; PULSE 74–168; RESP 9–18; TEMP 36.2–36.9; O2SAT 95–98
[2021-02-08] MEDS: PIPERACILLIN/TAZO 2.25 GM in Normal Saline 50 ML IVPB ×2 (04:03→11:52)
[2021-02-08] MEDS: Normal Saline 500 ML 30 ML IV (04:03)
[2021-02-08 06:42] LABS: Abs Immature Grans 0.07 10^3/uL (0.0-0.06); Absolute Lymphocyte Count 1.07 10^3/uL (1.2-3.4); Absolute Neutrophil Count 11.39 10^3/uL (1.2-6.7); Basophils % 0.6; Eosinophils % 1.8; HCT 35.1 % (40.0-50.0); HGB 10.8 g/dL (13.5-17.5); Immature Grans % 0.5; Lymphocytes % 7.6; MCHC 30.8 % (32.0-36.0); MCV 103.8 fL (80-95); MPV 9.9 fL (8.0-11.0); Monocytes % 8.7; Neutrophils % 80.8; Nucleated RBC 0 %; Platelet Count 181 10^3/uL (130-400); RBC 3.38 10^6/uL (4.36-5.78); RDW 14.6 % (11.8-14.1); RDW-SD 55.4 fL
[2021-02-08 06:49] LABS: Absolute Basophil Count 0.08 10^3/uL (0.0-0.2); Absolute Eosinophil Count 0.25 10^3/uL (0.0-0.7); Absolute Monocyte Count 1.23 10^3/uL (0.1-0.8)
[2021-02-08 06:57] LABS: Anion Gap 11.8 mmol/L (3-11); CO2 24.2 mmol/L (21.0-32.0); Calcium 9.6 mg/dL (8.5-10.1); Chloride 101 mmol/L (98-107); Estimated GFR 10.52 (mL/min/1.73m2); Glucose 204 mg/dL (74-106); Potassium 5.2 mmol/L (3.5-5.1); Sodium 137 mmol/L (136-145)
[2021-02-08 07:04] LABS: BUN 98 mg/dL (7-18); CREATININE 5.4 mg/dL (0.70-1.30)
[2021-02-08] MEDS: Budesonide/Formoterol 160/4.5 6 GM 60 PUFF INH IH (08:35)
[2021-02-08] MEDS: Insulin Aspart 300 UNITS/3 ML PEN SC ×3 (09:50→17:12)
[2021-02-08] MEDS: Enoxaparin 30 MG/0.3 ML SYR SC (09:51)
[2021-02-08] MEDS: Aspirin E.C. 81 MG TABEC PO (09:51)
[2021-02-08] MEDS: Pantoprazole 40 MG TABCR PO (09:51)
[2021-02-08] MEDS: Sodium Bicarbonate 650 MG TAB PO (09:51)
[2021-02-08] MEDS: Clopidogrel 75 MG TAB PO (09:51)
[2021-02-08] MEDS: Docusate Sodium 100 MG CAP 200 MG PO (09:51)
[2021-02-08] MEDS: levETIRAcetam 250 MG TAB PO (09:51)
[2021-02-08] MEDS: Polyethylene Glycol 3350 17 GM PACKET PO (11:25)
[2021-02-08] MEDS: Senna TAB 1 TAB PO (11:25)
--- NOTE | 2021-02-08 15:16 | DSE_ITS ---
DS: Diagnosis Discharge Diagnosis (1) Pneumonia: Status: Acute (2) Leukocytosis: Status: Acute (3) Altered mental status: Status: Acute (4) Chronic renal insufficiency, stage V: Status: Chronic Discharge Plan Disposition Patient Disposition: HOME W/HOME HEALTH SERVICE Condition: Improving Discharge Details Reason For Visit: Aspiration Pneumonia Admit Date/Time: 02/07/21 23:19 Admit Provider: Saleem Acharya Attending Provider: Saleem Acharya Primary Care Provider: Nayla Valles Hospital Course Hospital Course: This 70-year-old male was at dialysis earlier today. H/O renal failure, seizure disorder, recent aspiration pneumonia, DM2, HTN, CVA, ASHD,PAD, GERD, HLD. This was his normal day at dialysis but there he developed a syncopal episode and was brought here to be seen. Evaluation emergency department was extensive and the only abnormality was found was that he has what appears to be aspiration pneumonia. He was treated with piperacillin/tazobactam. His mental status has improved slightly since coming to the department. Because of his renal failure it was attempted to transfer him to another hospital for further care as we generally do not take care of dialysis patients here. It did not appear that he had any seizures today. He does have a history of seizure disorder as well as diabetes. He has similar episode here few weeks ago and was transferred to [facility]. Those records show dx of aspiration PNA; sent home on course of [place] joonentin that was complete. While at dialysis it was reported that he had apnea. He could not provide much history except he does whisper his name and says he is in the hospital. He does not know the day of the week or month. CXR was negative but bilateral bases of lungs on CT abd/pelvis showed infiltrates. UA positive; culture pending. Zosyn was initiated. His initial WBC count was 12; increased to 14. He returned to his baseline level of consciousness. He will d/c to home on Keflex 500mg after dialysis sessions for 4 doses. Home Meds and New Rx's Prescriptions: New cephalexin 500 mg capsule 500 mg PO .Saturday,,sat Qty: 4 RF: 0 Continued metolazone 2.5 MG tablet 2.5 mg PO PRN RF: 0 fluticasone propion-salmeterol [Advair Diskus] 1 EACH blister with device 1 puff Inhalation BID RF: 0 atorvastatin 80 MG tablet 80 mg PO DAILY RF: 0 ipratropium-albuterol 3 ML solution for nebulization 3 ml Inhalation Q6H PRN RF: 0 Lantus U-100 Insulin 100 UNIT/1 ML solution 4 unit SQ DAILY RF: 0 fexofenadine 60 MG tablet 60 mg PO DAILY RF: 0 valsartan 80 MG tablet 80 mg PO DAILY RF: 0 clopidogrel 75 MG tablet 75 mg PO DAILY RF: 0 acetaminophen 650 MG tablet 650 mg PO Q8H PRN RF: 0 levetiracetam [Keppra] 250 MG tablet 250 mg PO BID RF: 0 sodium bicarbonate 650 MG tablet 650 mg PO BID Qty: 2 RF: 0 nitroglycerin [Nitrostat] 0.4 MG tablet, sublingual 0.4 mg Sublingual ONCE RF: 0 docusate sodium 100 MG capsule 200 mg PO DAILY RF: 0 mometasone [Nasonex] 17 GM spray,non-aerosol 2 spry NS DAILY RF: 0 cholecalciferol (vitamin D3) [Vitamin D3] 1,000 UNIT capsule 1,000 unit PO DAILY RF: 0 Humalog U-100 Insulin 100 UNIT/1 ML cartridge 10 u SQ TIDWMEAL RF: 0 dutasteride [Avodart] 0.5 MG capsule 0.5 mg PO DAILY RF: 0 calcium acetate(phosphat bind) 667 MG capsule 1,334 mg PO TID RF: 0 ESSENTIAL Daily 1 EACH tablet 1 ea PO DAILY RF: 0 pantoprazole [Protonix] [address] for susp in packet 40 mg PO DAILY RF: 0 gabapentin 400 mg capsule 800 mg PO HS RF: 0 gabapentin 100 mg capsule 200 mg PO QNOON RF: 0 midodrine 10 mg tablet 10 mg PO BID RF: 0 tamsulosin 0.4 mg capsule 0.4 mg PO HS RF: 0 oxycodone 5 mg Tablet 5 mg PO Q4H PRN PRN (Reason: Pain) RF: 0 gabapentin 100 mg Capsule 200 mg PO DAILY AM RF: 0 metoprolol tartrate 50 mg Tablet 12.5 mg PO BID RF: 0 aspirin [Aspir-81] 81 mg Tablet,Delayed Release (Dr/Ec) 81 mg PO DAILY RF: 0 nisoldipine 17 mg Tablet Extended Release 24 Hr 17 mg PO DAILY AM RF: 0 sertraline [Zoloft] 100 mg Tablet 125 mg PO DAILY AM RF: 0 trazodone 100 mg Tablet 100 mg PO HS RF: 0 sertraline [Zoloft] 25 mg Tablet 25 mg PO DAILY AM RF: 0 sevelamer carbonate [Renvela] 800 mg Tablet 800 mg PO TID RF: 0 Discharge Instructions Additional Instructions: Resume home health services Stand Alone Forms: Nursing Discharge Form Activity:: Activity as Tolerated Equipment/Supplies:: No Equipment Needed Diet:: Resume usual diet Discharge Orders Discharge Orders: Discharge Order (Routine); Ordered 02/08/21 Ordered By: Yasir Salinas DS: Summary Time Spent with Patient providing and/or coordinating discharge services: Greater than 30 minutes Status at Discharge Functional status at discharge: wheelchair bound Overall status at discharge: patient is back to baseline Mental Status: other (back to baseline) Speech and Movement: speech and movement normal Mood: congruent mood and other (back to baseline) Affect: normal affect Exam Psych Mental Status: other (back to baseline) Speech and Movement: speech and movement normal Mood: congruent mood and other (back to baseline) Affect: normal affect DS: Data Vitals/I&O Vitals and I&O: Vital Signs Temperature 36.9 C 02/08/21 11:00 Temperature Source Tympanic 02/08/21 11:00 Pulse 77 02/08/21 11:00 Pulse Rhythm Regular 02/08/21 01:46 Pulse 83 02/08/21 01:20 Respiratory Rate 18 02/08/21 11:00 Respiratory Effort Non-Labored 02/08/21 01:46 Respiratory Depth Normal 02/08/21 01:46 Respiratory Pattern Normal 02/08/21 01:46 Blood Pressure 146/55 H 02/08/21 11:00 Blood Pressure Mean 69 02/08/21 01:15 Blood Pressure Position Sitting 02/07/21 13:48 Pulse Oximetry 98 02/08/21 11:00 Oxygen Delivery Method Hi Flow System 02/08/21 11:00 Oxygen Flow Rate 3 02/08/21 11:00 Pain Level 0 02/08/21 01:01 Comment 02/08/21 11:00 Intake & Output 02/07/21 02/08/21 02/08/21 23:59 11:59 23:59 Intake Total 800 / 800 79.5 / 79.5 Output Total 100 / 100 Balance 800 / 800 -20.5 / -20.5 Weight 58 kg Intake: IV 800 / 800 79.5 / 79.5 Output: Urine 100 / 100 Other: Urine Color Yellow Urine Appearance Cloudy Sediment Data Completed and Pending Labs on day of discharge: Labs from last 24 hours 02/08/21 02/08/21 02/07/21 06:28 06:28 22:44 WBC 14.10 H RBC 3.38 L Hgb 10.8 L Hct 35.1 L MCV 103.8 H MCH 32.0 MCHC 30.8 L RDW 14.6 H Plt Count 181 MPV 9.9 Immature Gran % 0.5 Neutrophils % 80.8 Lymphocytes % 7.6 Monocytes % 8.7 Eosinophils % 1.8 Basophils % 0.6 Nucleated RBC % 0 Absolute Neutrophils 11.39 H Absolute Lymphocytes 1.07 L Absolute Monocytes 1.23 H Absolute Eosinophils 0.25 Absolute Basophils 0.08 VBG Lactate Sodium 137 Potassium 5.2 H D Chloride 101 Carbon Dioxide 24.2 Anion Gap 11.8 H BUN 98 H* D Creatinine 5.4 H* D Estimated GFR/1.73 m2 10.52 Glucose 204 H Calcium 9.6 Troponin I Urine Color Urine Clarity Urine pH Ur Specific [place] Urine Protein Urine Ketones Urine Blood Urine Nitrite Urine Bilirubin Urine Urobilinogen Ur Leukocyte Esterase Urine RBC Urine WBC Ur Epithelial Cells Urine Crystals Urine Bacteria Urine Mucus Ur Culture Indicated? Urine Glucose Urine Opiates Screen Urine Methadone Screen Ur Barbiturates Screen Ur Tricyclics Screen Ur Amphetamines Screen U Benzodiazepines Scrn Urine Cocaine Screen Ur THC Screen COVID-19 Source Nasal/Nares SARS-CoV-2 (PCR) Negative 02/07/21 02/07/21 02/07/21 21:42 21:42 20:13 WBC RBC Hgb Hct MCV MCH MCHC RDW Plt Count MPV Immature Gran % Neutrophils % Lymphocytes % Monocytes % Eosinophils % Basophils % Nucleated RBC % Absolute Neutrophils Absolute Lymphocytes Absolute Monocytes Absolute Eosinophils Absolute Basophils VBG Lactate 1.5 H Sodium Potassium Chloride Carbon Dioxide Anion Gap BUN Creatinine Estimated GFR/1.73 m2 Glucose Calcium Troponin I Urine Color Yellow Urine Clarity Cloudy Urine pH 6.0 Ur Specific [place] 1.025 Urine Protein >=300 H Urine Ketones Negative Urine Blood Large H Urine Nitrite Negative Urine Bilirubin Negative Urine Urobilinogen 0.2 Ur Leukocyte Esterase Large H Urine RBC Urine WBC >50 H Ur Epithelial Cells Not Applicable Urine Crystals Not Applicable Urine Bacteria Urine Mucus Not Applicable Ur Culture Indicated? Yes Urine Glucose 100 Urine Opiates Screen Negative Urine Methadone Screen Negative Ur Barbiturates Screen Negative Ur Tricyclics Screen Negative Ur Amphetamines Screen Negative U Benzodiazepines Scrn Negative Urine Cocaine Screen Negative Ur THC Screen Negative COVID-19 Source SARS-CoV-2 (PCR) 02/07/21 17:00 WBC RBC Hgb Hct MCV MCH MCHC RDW Plt Count MPV Immature Gran % Neutrophils % Lymphocytes % Monocytes % Eosinophils % Basophils % Nucleated RBC % Absolute Neutrophils Absolute Lymphocytes Absolute Monocytes Absolute Eosinophils Absolute Basophils VBG Lactate Sodium Potassium Chloride Carbon Dioxide Anion Gap BUN Creatinine Estimated GFR/1.73 m2 Glucose Calcium Troponin I < 0.05 Urine Color Urine Clarity Urine pH Ur Specific [place] Urine Protein Urine Ketones Urine Blood Urine Nitrite Urine Bilirubin Urine Urobilinogen Ur Leukocyte Esterase Urine RBC Urine WBC Ur Epithelial Cells Urine Crystals Urine Bacteria Urine Mucus Ur Culture Indicated? Urine Glucose Urine Opiates Screen Urine Methadone Screen Ur Barbiturates Screen Ur Tricyclics Screen Ur Amphetamines Screen U Benzodiazepines Scrn Urine Cocaine Screen Ur THC Screen COVID-19 Source SARS-CoV-2 (PCR) 02/07/21 21:42 Urine - Reflex from Ua Urine Culture - Pending 02/07/21 20:20 Blood Blood Culture - Pending 02/07/21 20:13 Blood Blood Culture - Pending Preliminary micro results at discharge 02/07/21 21:42 Urine Culture - Pending Urine - Reflex from Ua 02/07/21 20:20 Blood Culture - Pending Blood 02/07/21 20:13 Blood Culture - Pending Blood [facility] Medical History ASCVD (arteriosclerotic cardiovascular disease) CHF (congestive heart failure) Chronic renal insufficiency, stage V DM (diabetes mellitus) GERD (gastroesophageal reflux disease) Hyperlipidemia Hypertension Seizure disorder Surgical History Coronary Stent Tonsillectomy and adenoidectomy Vasectomy Social History Smoking/Tobacco Use Status: Former Tobacco Use Smoking risk assessment performed?: Yes Alcohol Intake: never Substance use type: does not use Do you feel safe at home: Yes Do you feel safe in your relationship?: Yes Additional Social history: pt lives at home with his
--- NOTE | 2021-02-08 17:25 | INITIAL_ITS ---
- If Service Date Differs Date of service: 02/08/21 Time of Service: 17:25 Care Management Initial Assess REASON FOR HOSPITALIZATION:: aspiration pneumonia PAST MEDICAL HISTORY/PAST SURGICAL HISTORY:: Medical History. ASCVD (arteriosclerotic cardiovascular disease). CHF (congestive heart failure). Chronic renal insufficiency, stage V. DM (diabetes mellitus). GERD (gastroesophageal reflux disease). Hyperlipidemia. Hypertension. Seizure disorder. Surgical History. Coronary Stent. Tonsillectomy and adenoidectomy. Vasectomy PREVIOUS FUNCTIONAL STATUS/SOCIAL/FAMILY SUPPORTS:: Wilfrid lives at home with his , Tere, in [place], [place]. Wilfrid has 2 children and Tere has 3. All together they have 5 grandchildren and several great grandchildren. Wilfrid receives dialysis three times a week on Tuesdays, and Saturdays. He receives care through the [facility] which includes an RN weekly and YARN FINISHER for ADLs twice a week. CURRENT FUNCTIONAL STATUS:: Wilfrid was lying in bed when CM met with him. His , Tere, was in the room visiting. Per MD, Wilfrid will be discharged today, as he is stable enough to return home, and he has dialysis tomorrow which cannot be provided at [facility]. Tere is comfortable with his plan, as his primary caregiver. She reports that Wilfrid has a specialized wheelchair which he needs to be kike lifted into, which is not currently at [facility], therefore he will require EMS transportation home. MD agrees that he meets criteria for EMS transport due to his medical condition and current level of function. CM will coordinate transportation. ADVANCE DIRECTIVES:: Not on file at [facility]. Has patient been provided with info about the portal/API?: Yes Did the patient sign up for the portal?: No CODE STATUS:: Full Code INSURANCE COVERAGE / FINANCIAL ISSUES:: [facility]/ [facility] CURRENT HOME/COMMUNITY SERVICES/EQUIPMENT:: Wilfrid receives HH services through [facility]. CM contacted [facility] to inform them of his planned discharge today. He also has a specialized wheelchair. PRIMARY CARE PHYSICIAN:: Nayla Valles POTENTIAL DISCHARGE NEEDS:: Coordinated return home, resumption of HH services, follow up appointments. PATIENT/FAMILY EDUCATION NEEDS:: Review discharge instructions regarding activity levels and medications, discussion of self care needs including ask me three and goals of care. ANTICIPATED BARRIERS TO DISCHARGE:: Transportation barriers TRANSPORTATION:: Wilfrid does not have his specialized wheelchair at [facility], and it cannot be transported. The transportation company he uses reguarly cannot go to his home, pick pulling machine operator his wheelchair, and pick him up at a hospital outside of [place]. CM called [facility] to arrange transportation, which was declined, as they did not feel he met medical criteria. Per MD, he does meet medical criteria. Alternate transportation is being attempted by [facility], who is currently busy on medical calls. CM will continue to coordinate transportation, as this is delaying his discharge. PLAN:: Wilfrid will be discharged today to his 's care at home. His services will be resumed, [facility]. He will be transported via EMS, coordinated by CM. He will follow up with his PCP, dialysis center, and discharge plan of care. CM will continue to follow.
--- NOTE | 2021-02-08 18:39 | CMDISCH_ITS ---
- If Service Date Differs Date of service: 02/08/21 Time of Service: 18:39 LACE Index Scoring Tool - Questions: Length of Stay (in days): 1 Acuity (Admit via E.D.?): Yes Comorbidities: Cerebrovascular Disease, Diabetes w/o Complication, Congestive Heart Failure, Liver or Renal Disease E.D. Visits: 3 - Answers: Total Score: 12 Risk of Readmission: High Risk Care Management Discharge Reason for Hospitalization: aspiration pneumonia Discharge Plan: Wilfrid will return home tonight with a resumption of services. [facility]. He will be transported via [facility] this evening at approximately 7:15pm. His will be home to receive him. TANVI called Tere to inform her of the time to expect him. He will follow up with his PCP, dialysis center, and discharge plan of care. Patient/Family Education Needs: Review discharge instructions with Tere, discussion of self care needs including ask me three and goals of care. Services Needed at Discharge: Home Health Care Services ([facility], [facility]), Transportation ([facility])
== END 2021-02-08 19:12 | disposition home health service (06) ==
LOC: ER 02-08 00:17 → MS 02-08 01:04
PROVIDERS: Registered Nurse Emergency; Admitting Provider Family Medicine; Emergency Provider Physician Assistant; PCP Internal Medicine; Visit Provider Family Medicine
DX: J69.0 Pneumonitis due to inhalation of food and vomit (principal); I13.2 Hypertensive heart and chronic kidney disease with heart failure and with stage 5 chronic kidney disease, or end stage renal disease; D72.829 Elevated white blood cell count, unspecified; R41.0 Disorientation, unspecified; N18.5 Chronic kidney disease, stage 5; R41.82 Altered mental status, unspecified; G40.909 Epilepsy, unspecified, not intractable, without status epilepticus; E11.22 Type 2 diabetes mellitus with diabetic chronic kidney disease; Z86.73 Personal history of transient ischemic attack (TIA), and cerebral infarction without residual deficits; I25.10 Atherosclerotic heart disease of native coronary artery without angina pectoris; I73.9 Peripheral vascular disease, unspecified; K21.9 Gastro-esophageal reflux disease without esophagitis; E78.5 Hyperlipidemia, unspecified
CPT/HCPCS: 36415; 36416; 80048; 80053; 80307; 82805; 82962; 87040; 87077; 87635; 93005; 94640; 96361; 96365; 99285; 70450; 71046; 74176; 81003; 81015; 83605; 83735; 84484; 85025; 85610; 87086; 87186; 93010; 99217; 99219; G0378; J1650; J2543

== ENCOUNTER 2021-02-21 13:59 | Emergency (ER) | payer MEDICARE, MEDICAID, SELFPAY ==
[2021-02-21] VITALS (46 sets, daily range): BP systolic 66–162; BP diastolic 16–79; PULSE 62–101; RESP 15–27; TEMP 36.6; O2SAT 89–100
--- NOTE | 2021-02-21 14:00 | RT.EKG_ITS ---
APPROVED REPORT Exam: Resting ECG Reason for Exam: syncope Patient Location: E HR:81 bpm ECG Measurements Heart Rate 81 AXIS UT 161 P 41 QRSd 113 QRS 61 QT 427 T 71 QTc 496 Conclusion Sinus rhythm...normal P axis, V-rate 60- 99 Incomplete left bundle branch block...QRSd>110mS, terminal axis(-90,-1) no STEMI, nondiagnostic EKG I have reviewed and interpreted ECG and agree with software generated interpretation.
[2021-02-21] MEDS: Normal Saline 250 ML IV (14:25)
[2021-02-21] MEDS: Etomidate 20 MG/10 ML VIAL IVP (14:27)
[2021-02-21] MEDS: Rocuronium 50 MG/5 ML SYR 70 MG IVP (14:28)
--- NOTE | 2021-02-21 14:30 | DI.CT_ITS ---
Exam(s) CT HEAD WO EXAM: CT HEAD WO CLINICAL HISTORY: AMS. TECHNIQUE: Imaging Protocol: Axial computed tomography images with coronal and sagittal reformatted images were created and reviewed COMPARISON: CT CT HEAD WO from 02/07/2021 FINDINGS: This patient is intubated There are no skull fractures. There is a surgical defect in the medial wall of the left maxillary si nus. No mucosal thickening or fluid levels evident in left maxillary sinus. Mild mucosal thickening posteriorly in the right maxillary sinus and ethmoidal air cells. Also post inflammatory retention cyst noted in the right sphenoid sinus and small fluid level in the left the noted sinus. Frontal si nuses are clear. Right mastoid air cells are clear. Left mastoid air cells are somewhat hypoplastic and with some fluid therein. No prominent middle ear fluid. There is no evidence of acute intracranial hemorrhage, intra nor extra-axial. Lateral ventricles are again noted be prominent in size although somewhat commensurate when compared to the overlying corti will sulci. No evidence of blood within the ventricular system nor within the basal cisterns. No eladio dence of territorial infarction. There is heavy vascular calcification within both vertebral arterie s at the skull base as well as within the intracavernous internal carotid arteries. There is mild pe riventricular white matter hypodensity consistent with some small vessel disease but no evidence of t erritorial infarction. Atrophy also noted in the infra tentorial compartment. IMPRESSION: Atrophy and chronic small vessel ischemic changes. Paranasal sinus findings as described above as well as some fluid in left mastoid air cells. No evidence of intracranial hemorrhage in this intubated patient. RADIATION DOSE DELIVERED: 956.15mGy.cm Total DLP DATA REPOSITORY: All CT scans at this facility are submitted to the National Radiology Data Registry (NRDR) Dose Index Registry (DIR) with the [employer] (A[employer]). RADIATION OPTIMIZATION: All CT scans at this facility use at least one of these dose optimization te chniques: automated exposure control; mA and/or kV adjustment per patient size (includes targeted exa ms where dose is matched to clinical indication); or iterative reconstruction.
--- NOTE | 2021-02-21 14:46 | ED.GENADUL_ITS ---
Discharge Plan Disposition Patient Disposition: [facility] Condition: Improving Discharge Details Clinical Impression: Syncope and collapse, Altered mental status, Hypoxia Primary Care Provider: Nayla Valles ED Provider: Lalito Patterson Home Meds and New Rx's Prescriptions: No Action metolazone 2.5 MG tablet 2.5 mg PO PRN RF: 0 fluticasone propion-salmeterol [Advair Diskus] 1 EACH blister with device 1 puff Inhalation BID RF: 0 atorvastatin 80 MG tablet 80 mg PO DAILY RF: 0 ipratropium-albuterol 3 ML solution for nebulization 3 ml Inhalation Q6H PRN RF: 0 Lantus U-100 Insulin 100 UNIT/1 ML solution 4 unit SQ DAILY RF: 0 fexofenadine 60 MG tablet 60 mg PO DAILY RF: 0 valsartan 80 MG tablet 80 mg PO DAILY RF: 0 clopidogrel 75 MG tablet 75 mg PO DAILY RF: 0 acetaminophen 650 MG tablet 650 mg PO Q8H PRN RF: 0 levetiracetam [Keppra] 250 MG tablet 250 mg PO BID RF: 0 sodium bicarbonate 650 MG tablet 650 mg PO BID Qty: 2 RF: 0 nitroglycerin [Nitrostat] 0.4 MG tablet, sublingual 0.4 mg Sublingual ONCE RF: 0 docusate sodium 100 MG capsule 200 mg PO DAILY RF: 0 mometasone [Nasonex] 17 GM spray,non-aerosol 2 spry NS DAILY RF: 0 cholecalciferol (vitamin D3) [Vitamin D3] 1,000 UNIT capsule 1,000 unit PO DAILY RF: 0 Humalog U-100 Insulin 100 UNIT/1 ML cartridge 10 u SQ TIDWMEAL RF: 0 dutasteride [Avodart] 0.5 MG capsule 0.5 mg PO DAILY RF: 0 calcium acetate(phosphat bind) 667 MG capsule 1,334 mg PO TID RF: 0 ESSENTIAL Daily 1 EACH tablet 1 ea PO DAILY RF: 0 pantoprazole [Protonix] [address] for susp in packet 40 mg PO DAILY RF: 0 gabapentin 400 mg capsule 800 mg PO HS RF: 0 gabapentin 100 mg capsule 200 mg PO QNOON RF: 0 midodrine 10 mg tablet 10 mg PO BID RF: 0 tamsulosin 0.4 mg capsule 0.4 mg PO HS RF: 0 oxycodone 5 mg Tablet 5 mg PO Q4H PRN PRN (Reason: Pain) RF: 0 gabapentin 100 mg Capsule 200 mg PO DAILY AM RF: 0 cephalexin 500 mg capsule 500 mg PO .Saturday,,sat Qty: 4 RF: 0 metoprolol tartrate 50 mg Tablet 12.5 mg PO BID RF: 0 aspirin [Aspir-81] 81 mg Tablet,Delayed Release (Dr/Ec) 81 mg PO DAILY RF: 0 nisoldipine 17 mg Tablet Extended Release 24 Hr 17 mg PO DAILY AM RF: 0 sertraline [Zoloft] 100 mg Tablet 125 mg PO DAILY AM RF: 0 trazodone 100 mg Tablet 100 mg PO HS RF: 0 sertraline [Zoloft] 25 mg Tablet 25 mg PO DAILY AM RF: 0 sevelamer carbonate [Renvela] 800 mg Tablet 800 mg PO TID RF: 0 Discharge Data Discharge Date/Time-TO BE ENTERED AT DEPARTURE: 02/21/21 19:35 Medical Decision Making <Britney Glass MD - Last Filed: 02/22/21 16:15> Wilfrid Zarate is a 70-year-old man with history of seizure disorder, chronic renal insufficiency on dialysis who presented to the emergency department with unresponsive episode after finishing full dialysis session today and so dialysis center, minimally responsive upon arrival to the emergency department. Patient with GCS 6, not protecting his airway, significant amount of secretions present. Patient was intubated for airway protection. There were no complications, please see procedure note. Concern for pneumonia, sepsis, acute emergent intracranial process, seizure, metabolic/electrolyte derangement, acute coronary syndrome, other. Exam/history at the time not consistent with acute aortic process, acute emergent intra-abdominal process. IV placed. EKG obtained and nondiagnostic. Plan for continued telemetry, postintubation chest x-ray, screening labs, will monitor and reassess. No ICU beds available at [facility] 1440 Contacted [facility] transfer center, no beds until later tonight 1500 contacted [facility], who refuses transfer after discussion with Dr. Eason, Pt to go to [facility] per [facility] Labs reviewed, white blood cell count 20, ABG shows pH 7.32, hemoglobin 10, potassium 3.7, lactate 1.3. Chest x-ray shows worsening right lower lobe infiltrate, stable left lung infiltrate, pleural effusion is present on prior. Pt with gradually decreasing blood pressure, systolic blood pressure [address] head and after a total of 500 cc normal saline. Plan for Levophed. 1630 Called back by [facility] crit care, reviewed patient presentation results with critical care team at [facility], who accepted Pt for transfer (accepting MD Dr. Meeks), agreed with starting Levophed, requested no more than 1000 cc fluid (patient currently received 500 cc of saline), recommended vasopressin if need for second pressor, no further immediate recommendations. Per transfer center patient will be transferred for several hours. Is my opinion that it is safer for the patient to remain in this emergency department for several hours then to be transported to another hospital with longer transport time. I did discuss this with the patient's who was present at bedside, who agrees. Patient condition was discussed at length with patient's , all questions were answered. BP improved on levophed gtt. Pt signed out to Dr. Patterson at shift change with transfer to [facility] pending. Medical Records Medical records reviewed: Yes I reviewed the patient's medical records. Imaging Data Radiologic Study: Attestation: I personally reviewed and interpreted this imaging study as follows: Radiologist's impression: [id number],000EXAM: XR PORTABLE CHEST AP CLINICAL HISTORY: post-intubation. TECHNIQUE: 2D digital imaging was performed. COMPARISON: CR XR CHEST 2V PA LATERAL from 02/07/2021 FINDINGS: Patient is now intubated. Distal tip of the endotracheal tube is in satisfactory position above the marietta at the aortic arch level. Distal tip of the left supra clavi in dialysis catheter is in the mid right atrium. There is also an NG tube in the stomach. Sternotomy wires are noted. Evidence of previous CABG. Bilateral interstitial disease again noted which is probably pulmonary edema. There is also a pleural effusion on the right side. Also increasing confluent infiltrate right lower lung field and stable left mid lung field infiltrate.. IMPRESSION: Increasing interstitial disease and right pleural effusion. Lines and catheters as above. Exam: CT Head Without Contrast Exam date and time: 02/21/2021 2:34 PM Age: 70 years old Clinical indication: Other: AMS; Additional info: AMS, unresponsive PT TECHNIQUE: Imaging protocol: Computed tomography of the head without contrast. Radiation optimization: All CT scans at this facility use at least one of these dose optimization techniques: automated exposure control; mA and/or kV adjustment per patient size (includes targeted exams where dose is matched to clinical indication); or iterative reconstruction. COMPARISON: CT HEAD WO 02/07/2021 2:55 PM FINDINGS: Tubes, catheters and devices: There is an NG tube. There is an endotracheal tube. Brain: There is a giant cisterna magna. There is sulcal prominence for a patient of this age. There are periventricular white matter changes consistent with small vessel disease. There is an old lacunar infarct within the left basal ganglion region. There is an old left lacunar thalamic infarct. Cerebral ventricles: The ventricular system is midline and symmetrical. The ventricular system is dilated. This could be secondary to normal pressure hydrocephalus versus central atrophy. Paranasal sinuses: There is slight mucosal thickening of the left maxillary sinus. There is mucosal thickening of the ethmoid sinuses. There is slight mucosal thickening of the left frontal sinus. There is mucosal thickening of the sphenoid sinuses. Mastoid air cells: There is rarefaction of the left mastoid air cells. There is soft tissue density within the left mastoid air cells. There is slight soft tissue density within the right mastoid air cells. Bones/joints: Unremarkable. No acute fracture. Soft tissues: Unremarkable. IMPRESSION: Atrophy. Old lacunar infarcts as above. Periventricular white matter changes consistent with small vessel disease. Sinus findings as above. Suspect chronic and acute left mastoiditis. Suspect acute right mastoiditis. The patient is intubated. There is an NG tube. Lab Data Lab results reviewed: Yes I reviewed the patient's lab results. Labs: 02/21/21 16:40 Blood Blood Culture - Pending 02/21/21 15:00 Blood Blood Culture - Pending Laboratory Tests Range/Units 02/21/21 02/21/21 02/21/21 13:10 14:05 14:05 WBC (4.4-10.8) 10^3/uL 20.59 H RBC (4.36-5.78) 10^6/uL 3.12 L Hgb (13.5-17.5) g/dL 10.0 L Hct (40.0-50.0) % 32.5 L MCV (80-95) fL 104.2 H MCH (27.0-33.0) pg 32.1 MCHC (32.0-36.0) % 30.8 L RDW (11.8-14.1) % 14.6 H Plt Count (130-400) 10^3/uL 178 MPV (8.0-11.0) fL 9.7 Immature Gran % 0.6 Neutrophils % 90.0 Lymphocytes % 2.6 Monocytes % 6.3 Eosinophils % 0.2 Basophils % 0.3 Nucleated RBC % % 0 Absolute Neutrophils (1.2-6.7) 10^3/uL 18.53 H Absolute Lymphocytes (1.2-3.4) 10^3/uL 0.54 L Absolute Monocytes (0.1-0.8) 10^3/uL 1.30 H Absolute Eosinophils (0.0-0.7) 10^3/uL 0.04 Absolute Basophils (0.0-0.2) 10^3/uL 0.06 ABG Sample Site Right Radial ABG pH (7.35-7.45) 7.32 L ABG pCO2 (35-45) mmHg 52 H ABG pO2 (80-105) mmHg 80 ABG HCO3 (22-26) mmol/L 27 H ABG Total CO2 (23-27) mmol/L 25 ABG O2 Saturation (95-98) % 95 ABG Base Excess (-2-3) mmol/L 1 VBG Lactate (0.6-1.4) mmol/L Oxygen Liter Flow L CNV VT440/R15/P5 FiO2 % 40 Sodium (136-145) mmol/L 137 Potassium (3.5-5.1) mmol/L 3.7 Chloride (98-107) mmol/L 100 Carbon Dioxide (21.0-32.0) mmol/L 28.1 Anion Gap (3-11) mmol/L 8.9 BUN (7-18) mg/dL 84 H* Creatinine (0.70-1.30) mg/dL 4.0 H* Estimated GFR/1.73 m2 (mL/min/1.73m2) 14.88 Glucose (74-106) mg/dL 131 H Calcium (8.5-10.1) mg/dL 9.0 Magnesium (1.8-2.4) mg/dL 2.7 H Total Bilirubin (0.2-1.0) mg/dL 0.4 AST (15-37) U/L 22 ALT (16-63) U/L 14 L Alkaline Phosphatase (46-116) U/L 254 H Troponin I (<0.06) ng/mL < 0.05 Total Protein (6.4-8.2) g/dL 9.2 H Albumin (3.4-5.0) g/dL 2.9 L TSH (0.36-3.74) uIU/mL 9.15 H Free T4 (0.76-1.46) ng/dL 0.45 L COVID-19 Source SARS-CoV-2 (PCR) (Negative) Range/Units 02/21/21 02/21/21 14:55 15:00 WBC (4.4-10.8) 10^3/uL RBC (4.36-5.78) 10^6/uL Hgb (13.5-17.5) g/dL Hct (40.0-50.0) % MCV (80-95) fL MCH (27.0-33.0) pg MCHC (32.0-36.0) % RDW (11.8-14.1) % Plt Count (130-400) 10^3/uL MPV (8.0-11.0) fL Immature Gran % Neutrophils % Lymphocytes % Monocytes % Eosinophils % Basophils % Nucleated RBC % % Absolute Neutrophils (1.2-6.7) 10^3/uL Absolute Lymphocytes (1.2-3.4) 10^3/uL Absolute Monocytes (0.1-0.8) 10^3/uL Absolute Eosinophils (0.0-0.7) 10^3/uL Absolute Basophils (0.0-0.2) 10^3/uL ABG Sample Site ABG pH (7.35-7.45) ABG pCO2 (35-45) mmHg ABG pO2 (80-105) mmHg ABG HCO3 (22-26) mmol/L ABG Total CO2 (23-27) mmol/L ABG O2 Saturation (95-98) % ABG Base Excess (-2-3) mmol/L VBG Lactate (0.6-1.4) mmol/L 1.3 Oxygen Liter Flow L FiO2 % Sodium (136-145) mmol/L Potassium (3.5-5.1) mmol/L Chloride (98-107) mmol/L Carbon Dioxide (21.0-32.0) mmol/L Anion Gap (3-11) mmol/L BUN (7-18) mg/dL Creatinine (0.70-1.30) mg/dL Estimated GFR/1.73 m2 (mL/min/1.73m2) Glucose (74-106) mg/dL Calcium (8.5-10.1) mg/dL Magnesium (1.8-2.4) mg/dL Total Bilirubin (0.2-1.0) mg/dL AST (15-37) U/L ALT (16-63) U/L Alkaline Phosphatase (46-116) U/L Troponin I (<0.06) ng/mL Total Protein (6.4-8.2) g/dL Albumin (3.4-5.0) g/dL TSH (0.36-3.74) uIU/mL Free T4 (0.76-1.46) ng/dL COVID-19 Source Nasal/Nares SARS-CoV-2 (PCR) (Negative) Negative ECG Data Attestation: I personally reviewed and interpreted this ECG (s) as follows: Interpretation: EKG shows sinus rhythm 81, normal axis, incomplete left bundle branch block, no STEMI, nondiagnostic EKG <Lalito Patterson MD - Last Filed: 02/21/21 18:14> Received signout from Dr. Glass. Please see her note regarding details of the initial presentation, exam and plan of care. Patient improved on Levophed drip, last systolic blood pressure 120. Accepted to [facility] for transfer. HPI <Britney Glass MD - Last Filed: 02/22/21 16:15> General Mode of arrival: EMS . Date/Time Provider Initiated Documentation: 02/21/21 14:07 . Limitations to Documentation: altered mental status . Information obtained by: EMS, RN notes reviewed and old records reviewed . HPI Narrative: Wilfrid Zarate is a 70 y/o man with history of seizure disorder, chronic renal insufficiency on dialysis presenting to emergency department with altered mental status. Per dialysis center, patient received full dialysis, his oxygen saturation decreased, patient turned blue, stopped breathing, and was unresponsive. Blood pressure was unmeasurable, O2 sats were 72% at 2 L O2. Patient was recently treated for aspiration pneumonia, was finished several days ago. Dialysis center reports that patient often has syncopal/unresponsive epis ode at dialysis which resolved with sternal rub, however today is on the case. Patient arrived to the emergency department minimally responsive, sats 95% on 15 L nonrebreather, systolic blood pressure 90, respiratory rate 18, heart rate 80s. Given reported history of rapid recovery from similar episodes in the past, sternal rub, ammonia inhalant were attempted with no response. Patient with pupils 3 mm bilaterally, does have oxycodone on med list, Narcan was attempted with no response. Fingerstick blood sugar 130. Related Data Home Medications Medication Instructions Recorded Confirmed ESSENTIAL Daily 1 ea PO DAILY NS 04/18/15 02/21/21 Humalog U-100 Insulin 10 u SQ TIDWMEAL NS 04/18/15 02/21/21 Lantus U-100 Insulin 4 unit SQ DAILY NS 04/18/15 02/21/21 acetaminophen 650 mg PO Q8H PRN NS 04/18/15 02/21/21 atorvastatin 80 mg PO DAILY tab-cap NS 04/18/15 02/21/21 calcium acetate(phosphat bind) 1,334 mg PO TID tab-cap NS 04/18/15 02/21/21 cholecalciferol (vitamin D3) 1,000 unit PO DAILY NS 04/18/15 02/21/21 [Vitamin D3] clopidogrel 75 mg PO DAILY tab-cap NS 04/18/15 02/21/21 docusate sodium 200 mg PO DAILY tab-cap NS 04/18/15 02/21/21 dutasteride [Avodart] 0.5 mg PO DAILY tab-cap NS 04/18/15 02/21/21 fexofenadine 60 mg PO DAILY NS 04/18/15 02/21/21 fluticasone propion-salmeterol 1 puff INHALATION BID disk NS 04/18/15 02/21/21 [Advair Diskus] ipratropium-albuterol 3 ml INHALATION Q6H PRN NS 04/18/15 02/21/21 levetiracetam [Keppra] 250 mg PO BID NS 04/18/15 02/21/21 metolazone 2.5 mg PO PRN tab-cap NS 04/18/15 02/21/21 mometasone [Nasonex] 2 spry NS DAILY spray NS 04/18/15 02/21/21 nitroglycerin [Nitrostat] 0.4 mg SUBLINGUAL ONCE NS 04/18/15 02/21/21 pantoprazole [Protonix] 40 mg PO DAILY packet NS 04/18/15 02/21/21 sodium bicarbonate 650 mg PO BID #2 NS 04/18/15 02/21/21 valsartan 80 mg PO DAILY NS 04/18/15 02/21/21 aspirin [Aspir-81] 81 mg PO DAILY 04/25/19 02/21/21 metoprolol tartrate 12.5 mg PO BID 04/25/19 02/21/21 nisoldipine 17 mg PO DAILY AM 04/25/19 02/21/21 sertraline [Zoloft] 25 mg PO DAILY AM 04/25/19 02/21/21 sertraline [Zoloft] 125 mg PO DAILY AM 04/25/19 02/21/21 sevelamer carbonate [Renvela] 800 mg PO TID 04/25/19 02/21/21 trazodone 100 mg PO HS 04/25/19 02/21/21 gabapentin 200 mg PO QNOON 01/17/21 02/21/21 gabapentin 800 mg PO HS 01/17/21 02/21/21 midodrine 10 mg PO BID 01/17/21 02/21/21 tamsulosin 0.4 mg PO HS 02/07/21 02/21/21 cephalexin 500 mg PO .Saturday,,sat #4 02/08/21 02/21/21 cap gabapentin 200 mg PO DAILY AM 02/08/21 02/21/21 oxycodone 5 mg PO Q4H PRN PRN 02/08/21 02/21/21 Previous Rx's Medication Instructions Recorded cephalexin 500 mg PO .Saturday,,sat #4 02/08/21 cap Allergies Allergy/AdvReac Type Severity Reaction Status Date / Time adhesive tape Allergy Unverified 02/07/21 13:57 Iodinated Contrast Media Allergy Unverified 02/07/21 13:57 [Iodinated Contrast Media - IV Dye] General Stated Complaint: AMS/LOC MADELAINE: 1 Review of Systems <Britney Glass MD - Last Filed: 02/22/21 16:15> Unobtainable due to mental status PFSH <Britney Glass MD - Last Filed: 02/22/21 16:15> Medical History ASCVD (arteriosclerotic cardiovascular disease) CHF (congestive heart failure) Chronic renal insufficiency, stage V DM (diabetes mellitus) GERD (gastroesophageal reflux disease) Hyperlipidemia Hypertension Seizure disorder Surgical History Coronary Stent Tonsillectomy and adenoidectomy Vasectomy Social History Smoking/Tobacco Use Status: Former Tobacco Use Smoking risk assessment performed?: Yes Alcohol Intake: never Substance use type: does not use Do you feel safe at home: Yes Do you feel safe in your relationship?: Yes Additional Social history: pt lives at home with his Exam <Britney Glass MD - Last Filed: 02/22/21 16:15> Narrative Exam Narrative: Constitutional: minimally responsive, good color HENT: head atraumatic/normocephalic/normal inspection, mucous membranes moist, drooling Eyes: conjunctiva normal, sclera normal, pupils 3mm b/l, eyes closed, somewhat roving eye movements Neck: no stridor, normal ROM, trachea midline Chest: normal inspection Resp: normal work of breathing, LCTAB Cardio: normal rate, normal rhythm, no murmur appreciated GI: abdomen soft, non-distended Skin: warm, dry, normal color, no rash Neuro: GCS 6, eyes do not open, no verbal response, withdraws to pain Ext: b/l AKA Course <Britney Glass MD - Last Filed: 02/22/21 16:15> Vital Signs Vital signs: Vital Signs Temperature 36.6 C 02/21/21 14:07 Pulse 74 02/21/21 14:07 Respiratory Rate 27 H 02/21/21 14:07 Blood Pressure 110/43 L 02/21/21 14:07 Pulse Oximetry 100 02/21/21 14:07 Temperature 36.6 C 02/21/21 14:07 Temperature Source Skin 02/21/21 14:07 Pulse 74 02/21/21 14:07 Respiratory Rate 27 H 02/21/21 14:07 Respiratory Effort 02/21/21 14:07 Blood Pressure 110/43 L 02/21/21 14:07 Blood Pressure Position Sitting 02/21/21 14:07 Pulse Oximetry 100 02/21/21 14:07 Oxygen Delivery Method Non-Rebreather 02/21/21 14:07 Oxygen Flow Rate 12 02/21/21 14:07 Lab/Test Results Lab/Test Results: 02/21/21 14:32 Blood Blood Culture - Pending 02/21/21 14:32 Blood Blood Culture - Pending Procedures <Britney Glass MD - Last Filed: 02/22/21 16:15> Intubation Time out performed: Yes sedative: Etomidate Mg Given: 20 paralytic: Rocuronium Mg Given: 70 Laryngoscope: other ET Tube Size: 7.5 ET Tube Uncuffed: No Tube Placement Confirmation: visualized tube passing through cords and equal breath sounds bilaterally Patient Tolerated Procedure: well Intubation Complications: none Critical Care Time <Britney Glass MD - Last Filed: 02/22/21 16:15> Critical Care Time Critical Care Time: Yes Total Critical Care Time: 45 Attestation: I have spent more than 45 minutes of critical care time with this critically ill patient excluding procedures, and including frequent bedside reassessments, management of infusions, laboratory interpretations, and discussions with family and consultants. Sign Out <Britney Glass MD - Last Filed: 02/22/21 16:15> Sign Out Data: Sign Out Comment: Patient signed out to Dr. Patterson at time of shift change with transfer to [facility] pending, accepting physician is Dr. Meeks. Last updated by Britney Glass MD at 02/21/21 17:13
[2021-02-21] MEDS: PROPOFOL 1,000 MG/100 ML BTL 1.9 MG (14:47)
--- NOTE | 2021-02-21 14:51 | DI.RAD_ITS ---
Exam(s) XR PORTABLE CHEST AP EXAM: XR PORTABLE CHEST AP CLINICAL HISTORY: post-intubation. TECHNIQUE: 2D digital imaging was performed. COMPARISON: CR XR CHEST 2V PA LATERAL from 02/07/2021 FINDINGS: Patient is now intubated. Distal tip of the endotracheal tube is in satisfactory position above the marietta at the aortic arch level. Distal tip of the left supra clavi in dialysis catheter is in the m id right atrium. There is also an NG tube in the stomach. Sternotomy wires are noted. Evidence of previous CABG. Bilateral interstitial disease again noted which is probably pulmonary edema. There is also a pleural effusion on the right side. Also increasing confluent infiltrate right lower lung field and stable left mid lung field infiltrate.. IMPRESSION: Increasing interstitial disease and right pleural effusion. Lines and catheters as above. DATA REPOSITORY: RADIATION DOSE DELIVERED: All CT scans at this facility use at least one of these dose optimization techniques: automated exposure control; mA and/or kV adjustment per patient size (includes targeted e xams where dose is matched to clinical indication); or iterative reconstruction.
[2021-02-21 15:00] LABS: Abs Immature Grans 0.12 10^3/uL (0.0-0.06); Absolute Basophil Count 0.06 10^3/uL (0.0-0.2); Absolute Eosinophil Count 0.04 10^3/uL (0.0-0.7); Absolute Lymphocyte Count 0.54 10^3/uL (1.2-3.4); Absolute Neutrophil Count 18.53 10^3/uL (1.2-6.7); Basophils % 0.3; Eosinophils % 0.2; HCT 32.5 % (40.0-50.0); Immature Grans % 0.6; Lymphocytes % 2.6; MCH 32.1 pg (27.0-33.0); MCHC 30.8 % (32.0-36.0); MCV 104.2 fL (80-95); MPV 9.7 fL (8.0-11.0); Monocytes % 6.3; Nucleated RBC 0 %; Platelet Count 178 10^3/uL (130-400); RBC 3.12 10^6/uL (4.36-5.78); RDW 14.6 % (11.8-14.1); RDW-SD 55.8 fL; WBC 20.59 10^3/uL (4.4-10.8)
[2021-02-21 15:02] LABS: Source Nasal/Nares
[2021-02-21 15:09] LABS: Lactate 1.3 mmol/L (0.6-1.4)
[2021-02-21 15:13] LABS: BE 1 mmol/L (-2-3); HCO3 27 mmol/L (22-26); pCO2 52 mmHg (35-45); pH 7.32 (7.35-7.45); pO2 80 mmHg (80-105); sO2 95 % (95-98); tCO2 25 mmol/L (23-27)
[2021-02-21 15:16] LABS: FIO2 40 %; Site Right Radial
[2021-02-21 15:20] LABS: Magnesium 2.7 mg/dL (1.8-2.4)
[2021-02-21] MEDS: VANCOMYCIN 1,250 MG in Normal Saline 250 ML 166.6666 MG IVPB (15:30)
[2021-02-21 15:33] LABS: ALT 14 U/L (16-63); AST 22 U/L (15-37); Albumin 2.9 g/dL (3.4-5.0); Alkaline Phosphatase 254 U/L (46-116); Anion Gap 8.9 mmol/L (3-11); Bilirubin, Total 0.4 mg/dL (0.2-1.0); CO2 28.1 mmol/L (21.0-32.0); Chloride 100 mmol/L (98-107); Estimated GFR 14.88 (mL/min/1.73m2); Glucose 131 mg/dL (74-106); Potassium 3.7 mmol/L (3.5-5.1); Sodium 137 mmol/L (136-145); TSH (W/Ref FT4) 9.15 uIU/mL (0.36-3.74); Total Protein 9.2 g/dL (6.4-8.2); Troponin I < 0.05 ng/mL (<0.06)
[2021-02-21 15:42] LABS: BUN 84 mg/dL (7-18)
[2021-02-21 15:55] LABS: COVID-19 PCR Negative (Negative)
[2021-02-21 15:59] LABS: FREE T4 0.45 ng/dL (0.76-1.46)
[2021-02-21] MEDS: Midazolam 2 MG/2 ML VIAL 5 MG IVP (16:06)
[2021-02-21] MEDS: MIDAZOLAM 50 MG in Normal Saline 90 ML IV (16:06)
--- NOTE | 2021-02-21 16:40 | DI.VRAD_ITS ---
PROCEDURE INFORMATION: Exam: CT Head Without Contrast Exam date and time: 02/21/2021 2:34 PM Age: 70 years old Clinical indication: Other: AMS; Additional info: AMS, unresponsive PT TECHNIQUE: Imaging protocol: Computed tomography of the head without contrast. Radiation optimization: All CT scans at this facility use at least one of these dose optimization techniques: automated exposure control; mA and/or kV adjustment per patient size (includes targeted exams where dose is matched to clinical indication); or iterative reconstruction. COMPARISON: CT HEAD WO 02/07/2021 2:55 PM FINDINGS: Tubes, catheters and devices: There is an NG tube. There is an endotracheal tube. Brain: There is a giant cisterna magna. There is sulcal prominence for a patient of this age. There are periventricular white matter changes consistent with small vessel disease. There is an old lacunar infarct within the left basal ganglion region. There is an old left lacunar thalamic infarct. Cerebral ventricles: The ventricular system is midline and symmetrical. The ventricular system is dilated. This could be secondary to normal pressure hydrocephalus versus central atrophy. Paranasal sinuses: There is slight mucosal thickening of the left maxillary sinus. There is mucosal thickening of the ethmoid sinuses. There is slight mucosal thickening of the left frontal sinus. There is mucosal thickening of the sphenoid sinuses. Mastoid air cells: There is rarefaction of the left mastoid air cells. There is soft tissue density within the left mastoid air cells. There is slight soft tissue density within the right mastoid air cells. Bones/joints: Unremarkable. No acute fracture. Soft tissues: Unremarkable. IMPRESSION: Atrophy. Old lacunar infarcts as above. Periventricular white matter changes consistent with small vessel disease. Sinus findings as above. Suspect chronic and acute left mastoiditis. Suspect acute right mastoiditis. The patient is intubated. There is an NG tube. Dictated and Authenticated by: James Barr MD. Ordering:MICHELLE Tan MD
[2021-02-21] MEDS: CEFEPIME 2 GM in Normal Saline 100 ML IVPB (17:12)
--- NOTE | 2021-02-21 17:18 | NUR.NOTE ---
Addendum entered by Antonia Serrano 02/21/21 17:41: another number [phone] Original Note: Nursing Note: Roxy Zarate [id number]
[2021-02-21] MEDS: Midazolam 2 MG/2 ML VIAL IVP ×2 (18:00→19:25)
--- NOTE | 2021-02-21 18:27 | NUR.NOTE ---
phoned that [place] [facility] [place]spoke to her.Nursing Note:
[2021-02-21 18:55] LABS: BE 0 mmol/L (-2-3); HCO3 25 mmol/L (22-26); pCO2 44 mmHg (35-45); pH 7.37 (7.35-7.45); pO2 79 mmHg (80-105); sO2 96 % (95-98); tCO2 24 mmol/L (23-27)
[2021-02-21 18:58] LABS: FIO2 35 %; Site Right Radial
--- NOTE | 2021-02-21 19:08 | NUR.NOTE ---
Nursing Note: Per provider request, increase to Versed infusion to 3ml/hour. Nor-Epi remains at 7ml/hr as stated in flowsheet.
--- NOTE | 2021-02-21 19:47 | NUR.NOTE ---
Nursing Note: Pt care report transferred to [facility] ([facility]). At the time of transfer medication dosages reviewed and vitals stable.
== END 2021-02-21 19:35 | disposition short-term general hospital (02) ==
PROVIDERS: Student in an Organized Health Care Education/Training Program; Emergency Provider Emergency Medicine; PCP Internal Medicine
DX: R55 Syncope and collapse (principal); R41.82 Altered mental status, unspecified; R09.02 Hypoxemia; Z20.822 Contact with and (suspected) exposure to COVID-19; Z03.818 Encounter for observation for suspected exposure to other biological agents ruled out; Z78.1 Physical restraint status; Z99.2 Dependence on renal dialysis
CPT/HCPCS: 31500; 36415; 36416; 80053; 82805; 82962; 87040; 87635; 93005; 96361; 96365; 96366; 96375; 96376; 99291; 36600; 70450; 71045; 83605; 83735; 84439; 84443; 84484; 85025; 87070; 87205; 93010; J2250; J2310; J3490

== ENCOUNTER 2021-04-25 13:26 | Emergency (ER) | payer MEDICARE, MEDICAID, SELFPAY ==
[2021-04-25] VITALS (24 sets, daily range): BP systolic 113–150; BP diastolic 56–61; PULSE 66–71; RESP 17–20; TEMP 36.5; O2SAT 86–100
--- NOTE | 2021-04-25 13:25 | DI.CT_ITS ---
Exam(s) CT HEAD WO EXAM: CT HEAD WO CLINICAL HISTORY: L arm weakness, hx cva. TECHNIQUE: Imaging Protocol: Axial computed tomography images with coronal and sagittal reformatted images were created and reviewed COMPARISON: CT CT HEAD WO from 02/21/2021 FINDINGS: Ventricles and Extra axial spaces: Normal in size and morphology for the patient's age. Hemorrhage: None. Cerebral parenchyma: No acute territorial infarct is identified. There are areas of decreased attenu ation in the white matter consistent with small vessel ischemic disease. Midline shift: None. Brainstem/Cerebellum: Normal. Calvarium: Normal. Visualized Paranasal sinuses/Mastoids: Mucosal thickening is seen in the visualized paranasal sinuses . No fluid levels are present. Mastoid air cells are clear. Soft Tissues: Unremarkable. IMPRESSION: 1. No acute intracranial process. 2. Results of this exam have been verbally communicated with provider. RADIATION DOSE DELIVERED: 866.85mGy.cm Total DLP DATA REPOSITORY: All CT scans at this facility are submitted to the National Radiology Data Registry (NRDR) Dose Index Registry (DIR) with the [employer] (A[employer]). RADIATION OPTIMIZATION: All CT scans at this facility use at least one of these dose optimization te chniques: automated exposure control; mA and/or kV adjustment per patient size (includes targeted exa ms where dose is matched to clinical indication); or iterative reconstruction.
--- NOTE | 2021-04-25 13:30 | DI.RAD_ITS ---
Exam(s) XR PORTABLE CHEST AP EXAM: XR PORTABLE CHEST AP CLINICAL HISTORY: L arm weakness TECHNIQUE: 2D digital imaging was performed of the chest. Images were obtained. PA and lateral v iews were obtained. COMPARISON: CR XR PORTABLE CHEST AP from 02/21/2021 FINDINGS: Low lung volumes. MEDIASTINUM: Normal. HEART: Normal. PULMONARY VASCULATURE: There is tortuosity and atherosclerosis of the thoracic aorta. LUNGS: Plate atelectasis is present. No focal consolidating infiltrates. PLEURAL SPACE: No pleural effusion or pneumothorax. BONE:Within normal limits for the patient's age. Sternal wires are in place. OTHER FINDINGS:The dialysis catheter is stable in position. IMPRESSION: No acute pulmonary findings. DATA REPOSITORY: RADIATION DOSE DELIVERED:
--- NOTE | 2021-04-25 13:30 | RT.EKG_ITS ---
APPROVED REPORT Exam: Resting ECG Reason for Exam: Unresponsive Patient Location: E HR:70 bpm ECG Measurements Heart Rate 70 AXIS [place] 161 P 74 QRSd 112 QRS 52 QT 455 T 81 QTc 492 Conclusion Sinus rhythm...normal P axis, V-rate 60- 99 Probable left atrial enlargement. Left ventricular hypertrophy. Anterior Q waves, possibly due to LVH.
--- NOTE | 2021-04-25 13:31 | W.ED.GENAD ---
Discharge Plan Disposition Patient Disposition: HOME Condition: Improving Discharge Details Clinical Impression: Partial seizure Primary Care Provider: Nayla Valles ED Provider: Lalito Patterson Home Meds and New Rx's Prescriptions: Continued metolazone 2.5 MG tablet 2.5 mg PO PRN RF: 0 fluticasone propion-salmeterol [Advair Diskus] 1 EACH blister with device 1 puff Inhalation BID RF: 0 atorvastatin 80 MG tablet 80 mg PO DAILY RF: 0 ipratropium-albuterol 3 ML solution for nebulization 3 ml Inhalation Q6H PRN RF: 0 Lantus U-100 Insulin 100 UNIT/1 ML solution 4 unit SQ DAILY RF: 0 fexofenadine 60 MG tablet 60 mg PO DAILY RF: 0 valsartan 80 MG tablet 80 mg PO DAILY RF: 0 clopidogrel 75 MG tablet 75 mg PO DAILY RF: 0 acetaminophen 650 MG tablet 650 mg PO Q8H PRN RF: 0 levetiracetam [Keppra] 250 MG tablet 250 mg PO BID RF: 0 sodium bicarbonate 650 MG tablet 650 mg PO BID Qty: 2 RF: 0 nitroglycerin [Nitrostat] 0.4 MG tablet, sublingual 0.4 mg Sublingual ONCE RF: 0 docusate sodium 100 MG capsule 200 mg PO DAILY RF: 0 mometasone [Nasonex] 17 GM spray,non-aerosol 2 spry NS DAILY RF: 0 cholecalciferol (vitamin D3) [Vitamin D3] 1,000 UNIT capsule 1,000 unit PO DAILY RF: 0 Humalog U-100 Insulin 100 UNIT/1 ML cartridge 10 u SQ TIDWMEAL RF: 0 dutasteride [Avodart] 0.5 MG capsule 0.5 mg PO DAILY RF: 0 calcium acetate(phosphat bind) 667 MG capsule 1,334 mg PO TID RF: 0 ESSENTIAL Daily 1 EACH tablet 1 ea PO DAILY RF: 0 pantoprazole [Protonix] [address] for susp in packet 40 mg PO DAILY RF: 0 gabapentin 400 mg capsule 800 mg PO HS RF: 0 gabapentin 100 mg capsule 200 mg PO QNOON RF: 0 midodrine 10 mg tablet 10 mg PO BID RF: 0 tamsulosin 0.4 mg capsule 0.4 mg PO HS RF: 0 oxycodone 5 mg Tablet 5 mg PO Q4H PRN PRN (Reason: Pain) RF: 0 gabapentin 100 mg Capsule 200 mg PO DAILY AM RF: 0 cephalexin 500 mg capsule 500 mg PO .Saturday,,sat Qty: 4 RF: 0 metoprolol tartrate 50 mg Tablet 12.5 mg PO BID RF: 0 aspirin [Aspir-81] 81 mg Tablet,Delayed Release (Dr/Ec) 81 mg PO DAILY RF: 0 nisoldipine 17 mg Tablet Extended Release 24 Hr 17 mg PO DAILY AM RF: 0 sertraline [Zoloft] 100 mg Tablet 125 mg PO DAILY AM RF: 0 trazodone 100 mg Tablet 100 mg PO HS RF: 0 sertraline [Zoloft] 25 mg Tablet 25 mg PO DAILY AM RF: 0 sevelamer carbonate [Renvela] 800 mg Tablet 800 mg PO TID RF: 0 Discharge Instructions Instructions: Recurrent Seizures in Adults (ED) Additional Instructions: Increase your Keppra to 250 mg 3 times daily OR 250 mg in the morning and 500 mg at bedtime. I discussed your case with Dr. Dickson from neurology. She has made you an appointment to be [place] May 02 (05/02[place] 1[place] [facility] [place] [phone] Continue your regular medications. Your work-up today included an MRI of the brain as well as CAT scan of the head, chest x-ray, and laboratory analysis. Return to the ER for any acute concerns. Referrals: Maribel De La Cruz MD [ [facility] STAFF PHYSICIAN] - 05/02/21 1:45 pm Medical Decision Making 70-year-old male on dialysis. Presents with episode of unresponsiveness and left arm weakness following dialysis. His states that he finished the dialysis run uneventfully and then while waiting for his ride seem to stiffen throughout his body and briefly become unresponsive. There was no tonic-clonic seizure, no tongue biting. He has had similar episodes in the past including approximately 2 weeks ago in [facility] and in February for which he was evaluated at [facility]. Patient has a history of CVA, seizure disorder, end-stage renal disease, coronary artery disease. He does still take Keppra. Patient arrives improving. He does have notable left arm weakness on initial examination. Diff Diagnosis includes CVA, seizure disorder, electrolyte abnormality or metabolic disorder. Patient referred for stat noncontrast head CT which does not show any findings. I obtained and reviewed records from [facility] which included an EEG from February 2021. This revealed increased risk for seizure from right parietal and occipital head region. Neurology's recommendation during that hospitalization was to continue Keppra. Today, patient was able to undergo MRI of the brain. This is unremarkable for acute findings. See formal report. Chest x-ray without focal infiltrate, unchanged position of sternal wires and dialysis catheter. Laboratories: White count 6, hematocrit 35.9, platelets 151 chemistries with sodium 137, potassium 3.5, chloride 98 bicarb 31, BUN 37, creatinine 3.1. AST 18, ALT 14. After undergoing MRI without acute finding, intake returning to baseline, speaking, smiling, able to use both upper extremities without difficulty. I do feel this is most consistent with partial seizure. Patient previously had taken Keppra 500 mg 3 times daily and his states that he was weaned down to Keppra 250 mg twice daily. He has no current ongoing neurologic care and his states they would be most comfortable seeing Dr. Dickson in the [facility] system.. I discussed the patient's case and reviewed his MRI with Dr. Dickson. We will increase the Keppra to 250 mg 3 times a day or 250 mg in the morning and 500 mg at night. He will be seen next week in neurology clinic for follow-up. HPI General Mode of arrival: EMS. Date/Time Provider Initiated Documentation: 04/25/21 13:33. Limitations to Documentation: altered mental status. Information obtained by: EMS. History of Present Illness 70 year old M presents to the emergency department with the chief complaint of Unresponsive and left arm weakness after dialysis today., described as moderate, and is localized to the left and upper extremity. Patient started experiencing this minute(s) and it has been constant. No relieving factors improve symptom(s), No exacerbating factors reported . Patient notes confusion and weakness; denies seizure. Patient did receive the following treatments prior to arrival, none Related Data Home Medications Medication Instructions Recorded Confirmed ESSENTIAL Daily 1 ea PO DAILY NS 04/18/15 02/21/21 Humalog U-100 Insulin 10 u SQ TIDWMEAL NS 04/18/15 02/21/21 Lantus U-100 Insulin 4 unit SQ DAILY NS 04/18/15 02/21/21 acetaminophen 650 mg PO Q8H PRN NS 04/18/15 02/21/21 atorvastatin 80 mg PO DAILY tab-cap NS 04/18/15 02/21/21 calcium acetate(phosphat bind) 1,334 mg PO TID tab-cap NS 04/18/15 02/21/21 cholecalciferol (vitamin D3) 1,000 unit PO DAILY NS 04/18/15 02/21/21 [Vitamin D3] clopidogrel 75 mg PO DAILY tab-cap NS 04/18/15 02/21/21 docusate sodium 200 mg PO DAILY tab-cap NS 04/18/15 02/21/21 dutasteride [Avodart] 0.5 mg PO DAILY tab-cap NS 04/18/15 02/21/21 fexofenadine 60 mg PO DAILY NS 04/18/15 02/21/21 fluticasone propion-salmeterol 1 puff INHALATION BID disk NS 04/18/15 02/21/21 [Advair Diskus] ipratropium-albuterol 3 ml INHALATION Q6H PRN NS 04/18/15 02/21/21 levetiracetam [Keppra] 250 mg PO BID NS 04/18/15 02/21/21 metolazone 2.5 mg PO PRN tab-cap NS 04/18/15 02/21/21 mometasone [Nasonex] 2 spry NS DAILY spray NS 04/18/15 02/21/21 nitroglycerin [Nitrostat] 0.4 mg SUBLINGUAL ONCE NS 04/18/15 02/21/21 pantoprazole [Protonix] 40 mg PO DAILY packet NS 04/18/15 02/21/21 sodium bicarbonate 650 mg PO BID #2 NS 04/18/15 02/21/21 valsartan 80 mg PO DAILY NS 04/18/15 02/21/21 aspirin [Aspir-81] 81 mg PO DAILY 04/25/19 02/21/21 metoprolol tartrate 12.5 mg PO BID 04/25/19 02/21/21 nisoldipine 17 mg PO DAILY AM 04/25/19 02/21/21 sertraline [Zoloft] 25 mg PO DAILY AM 04/25/19 02/21/21 sertraline [Zoloft] 125 mg PO DAILY AM 04/25/19 02/21/21 sevelamer carbonate [Renvela] 800 mg PO TID 04/25/19 02/21/21 trazodone 100 mg PO HS 04/25/19 02/21/21 gabapentin 200 mg PO QNOON 01/17/21 02/21/21 gabapentin 800 mg PO HS 01/17/21 02/21/21 midodrine 10 mg PO BID 01/17/21 02/21/21 tamsulosin 0.4 mg PO HS 02/07/21 02/21/21 cephalexin 500 mg PO .Saturday,,sat #4 02/08/21 02/21/21 cap gabapentin 200 mg PO DAILY AM 02/08/21 02/21/21 oxycodone 5 mg PO Q4H PRN PRN 02/08/21 02/21/21 Previous Rx's Medication Instructions Recorded cephalexin 500 mg PO .Saturday,,sat #4 02/08/21 cap Allergies Allergy/AdvReac Type Severity Reaction Status Date / Time adhesive tape Allergy Unverified 02/07/21 13:57 Iodinated Contrast Media Allergy Unverified 02/07/21 13:57 [Iodinated Contrast Media - IV Dye] General MADELAINE: 1 Review of Systems Narrative: Underwent full dialysis run by report. History of similar episodes in the past PFSH All Active Problems (Updated 04/25/21 @ 15:08 by Lalito Patterson MD) Syncope and collapse (Acute) Altered mental status (Acute) Hypoxia (Acute) Partial seizure (Acute) Seizure disorder (Chronic) Chronic renal insufficiency, stage V (Chronic) Chills (Acute) Leukocytosis (Acute) Pneumonia (Acute) Altered mental status (Acute) Medical History ASCVD (arteriosclerotic cardiovascular disease) CHF (congestive heart failure) DM (diabetes mellitus) GERD (gastroesophageal reflux disease) Hyperlipidemia Hypertension Surgical History Coronary Stent Tonsillectomy and adenoidectomy Vasectomy Social History Smoking/Tobacco Use Status: Former Tobacco Use Smoking risk assessment performed?: Yes Alcohol Intake: never Drug use: Never Substance use type: does not use Do you feel safe at home: Yes Do you feel safe in your relationship?: Yes Additional Social history: pt lives at home with his Exam Narrative Exam Narrative: GEN: well groomed, interactive. HEAD: Normocephalic, atraumatic ENT: Mucous membranes moist, oropharynx unremarkable, External ear exam unremarkable EYES: PERRL, EOMI NECK: Full ROM, no MERRILL, no menigismus CHEST/RESP: Nontender, clear to auscultation bilateral, no wheeze/rhonchi/rales CARDIOVASCULAR: RRR, no murmur, rub onel. 2+ Rad pulse bilateral ABDOMEN: Soft, nontender, no mass. +Bowel sounds Neuro:/EXT: Interactive, responds with voice and is appropriate. No facial droop. Left arm weakness on initial presentation. Bilateral [id number] amputation
--- NOTE | 2021-04-25 13:45 | DI.MRI_ITS ---
Exam(s) MR BRAIN WO EXAM: MR BRAIN WO CLINICAL HISTORY: L arm weakness TECHNIQUE: Multiplanar multisequence MRI of the brain was performed. COMPARISON: CT CT HEAD WO from 04/25/[address] HEAD WO from 04/25/2021 FINDINGS: VENTRICLES AND EXTRA AXIAL SPACES: Normal in size and morphology for the patient's age. MIDLINE SHIFT: None. CEREBRAL PARENCHYMA: No focus of restricted diffusion to suggest acute infarct. No space-occupying le inez identified. There are few scattered areas of hyperintense signal on the T2 weighted images in th e white matter most consistent with chronic microvascular ischemic disease. HEMORRHAGE: None. BRAINSTEM/CEREBELLUM: Normal. CALVARIUM: Normal. VISUALIZED PARANASAL SINUSES/MASTOIDS:There is mild mucosal thickening in the paranasal sinuses. The re is mild opacification of the left mastoid air cells. No fluid levels are present. [place]: Normal flow void. [place]: Unremarkable. OTHER FINDINGS: None. IMPRESSION: 1. No evidence of an acute infarct. 2. Age-related cerebral atrophy and small vessel ischemic disease. 3. Results of this exam have been verbally communicated with provider. DATA REPOSITORY:
--- NOTE | 2021-04-25 14:00 | NUR.NOTE ---
Nursing Note:Pt going to MRI w/tech via stretcher, denies pain, unable to move left side.
[2021-04-25 14:04] LABS: Abs Immature Grans 0.04 10^3/uL (0.0-0.06); Absolute Basophil Count 0.06 10^3/uL (0.0-0.2); Absolute Eosinophil Count 0.38 10^3/uL (0.0-0.7); Absolute Lymphocyte Count 0.96 10^3/uL (1.2-3.4); Absolute Monocyte Count 0.53 10^3/uL (0.1-0.8); Absolute Neutrophil Count 4.75 10^3/uL (1.2-6.7); Basophils % 0.9; Eosinophils % 5.7; HCT 35.9 % (40.0-50.0); HGB 11.3 g/dL (13.5-17.5); Immature Grans % 0.6; Lymphocytes % 14.3; MCH 32.7 pg (27.0-33.0); MCHC 31.5 % (32.0-36.0); MCV 103.8 fL (80-95); MPV 9.6 fL (8.0-11.0); Monocytes % 7.9; Neutrophils % 70.6; Nucleated RBC 0 %; Platelet Count 151 10^3/uL (130-400); RBC 3.46 10^6/uL (4.36-5.78); RDW 14.4 % (11.8-14.1); RDW-SD 54.4 fL; WBC 6.72 10^3/uL (4.4-10.8)
[2021-04-25 14:16] LABS: ALT 14 U/L (16-63); AST 18 U/L (15-37); Albumin 2.9 g/dL (3.4-5.0); Alkaline Phosphatase 274 U/L (46-116); Anion Gap 7.4 mmol/L (3-11); BUN 37 mg/dL (7-18); Bilirubin, Total 0.3 mg/dL (0.2-1.0); CO2 31.6 mmol/L (21.0-32.0); CREATININE 3.1 mg/dL (0.70-1.30); Calcium 8.9 mg/dL (8.5-10.1); Chloride 98 mmol/L (98-107); Estimated GFR 19.96 (mL/min/1.73m2); Glucose 187 mg/dL (74-106); Potassium 3.5 mmol/L (3.5-5.1); Sodium 137 mmol/L (136-145); Total Protein 8.8 g/dL (6.4-8.2); Troponin I < 50 ng/L (<or=60)
[2021-04-25 14:31] LABS: Magnesium 2.6 mg/dL (1.8-2.4)
--- NOTE | 2021-04-25 15:05 | NUR.NOTE ---
Nursing Note: Return from MRI, VSS, pt able to move left arm, provider aware, continue to monitor.
[2021-04-25] MEDS: levETIRAcetam 250 MG TAB PO (16:02)
--- NOTE | 2021-04-25 16:06 | NUR.NOTE ---
Nursing Note:Medicated as ordered, no change, VSS, NAD, IV d/c'd, arranging transport for discharge, pt aware & agrees.
--- NOTE | 2021-04-25 16:46 | PDOC.ERCMPRO ---
- If Service Date Differs Date of service: 04/25/21 Time of Service: 16:46 Care Management Progress Note Mr. Zarate is seen in the ED for a partial seizure. He resides in [place], [place], is unable to ambulate and uses a special wheelchair made to accommodate his physical needs. Mr. Zarate' work-up in the ED reveals no acute findings and Mr. Zarate is medically cleared for discharge. CM's assistance with transportation home is requested by ED provider. TANVI speaks with Mr. Zarate' , Tere, on the telephone. Tere advises that he uses [facility] [employer] ([phone]) for transportation to and from appointments and says her will need to be driven home in a stretcher van because his wheelchair is at home. A phone call to [facility] reveals that transportation requires pre-authorization. Tere is asked to call her 's insurance company to obtain authorization for transport. She calls back to say the insurance company will pay for ambulance transport but not for a stretcher van. TANVI contacts the [facility] and arranges transport home for Mr. Zarate.
== END 2021-04-25 18:09 | disposition home or self-care (01) ==
LOC: ER 15:25
PROVIDERS: Emergency Provider Emergency Medicine; PCP Internal Medicine
DX: G40.109 Localization-related (focal) (partial) symptomatic epilepsy and epileptic syndromes with simple partial seizures, not intractable, without status epilepticus (principal); R46.4 Slowness and poor responsiveness; G81.94 Hemiplegia, unspecified affecting left nondominant side; Z86.73 Personal history of transient ischemic attack (TIA), and cerebral infarction without residual deficits; E11.22 Type 2 diabetes mellitus with diabetic chronic kidney disease; N18.6 End stage renal disease; Z99.2 Dependence on renal dialysis; Z79.4 Long term (current) use of insulin
CPT/HCPCS: 36415; 80053; 93005; 99285; 70450; 70551; 71045; 83735; 84484; 85025; 93010; 99284

== ENCOUNTER → 2021-05-02 13:38 | Outpatient (BNVA) | payer MEDICARE, MEDICAID, SELFPAY | PROVIDERS: PCP Internal Medicine; Referring Provider Emergency Medicine; Visit Provider Psychiatry & Neurology Neurology | DX: G40.109 Localization-related (focal) (partial) symptomatic epilepsy and epileptic syndromes with simple partial seizures, not intractable, without status epilepticus (principal); I13.0 Hypertensive heart and chronic kidney disease with heart failure and stage 1 through stage 4 chronic kidney disease, or unspecified chronic kidney disease; E11.42 Type 2 diabetes mellitus with diabetic polyneuropathy; E11.22 Type 2 diabetes mellitus with diabetic chronic kidney disease; N18.6 End stage renal disease; E11.319 Type 2 diabetes mellitus with unspecified diabetic retinopathy without macular edema; J44.9 Chronic obstructive pulmonary disease, unspecified; Z99.2 Dependence on renal dialysis; I50.9 Heart failure, unspecified | CPT/HCPCS: 99215 ==

== ENCOUNTER 2022-02-01 13:30 | Emergency (ER) | payer MEDICARE, MEDICAID, SELFPAY ==
[2022-02-01] VITALS (31 sets, daily range): BP systolic 140–169; BP diastolic 57–91; PULSE 64–71; RESP 15–20; TEMP 36.7–36.8; O2SAT 97–100
--- NOTE | 2022-02-01 13:30 | RT.EKG_ITS ---
APPROVED REPORT Exam: Resting ECG Reason for Exam: chest pain Patient Location: E HR:68 bpm ECG Measurements Heart Rate 68 AXIS [place] 165 P 59 QRSd 108 QRS 59 QT 467 T 87 QTc 497 Conclusion Sinus rhythm...normal P axis, V-rate 60- 99 Probable left atrial enlargement...P >50mS, <-0.10mV V1
--- NOTE | 2022-02-01 14:16 | ED.GENADUL_ITS ---
Discharge Plan Disposition Patient Disposition: HOME Condition: Improving Discharge Details Clinical Impression: Atypical chest pain Primary Care Provider: Nayla Valles ED Provider: Lalito Patterson Home Meds and New Rx's Prescriptions: Continued hydromorphone 2 mg tablet 2 mg PO .COMPLEX Rx Instructions: 2 mg PO Take 0.5 mg tablets evry other day. Talk half a tablet or one tablet on days prior to dialysis for pain/discomfort.; acetaminophen 500 mg capsule 1,000 mg PO Q8H PRN PRN budesonide-formoterol 160-4.5 mcg/actuation HFA aerosol inhaler 2 puff inhalation BID fluticasone propionate 50 mcg/actuation spray,suspension 1 spray intranasal DAILY Rx Instructions: administer into each nostril High-Protein Nutritional Shake Liquid See Rx Instructions .ROUTE .COMPLEX Rx Instructions: Take one each by mouth 2 times daily; miconazole nitrate 2 % powder 1 applic topical BID B complex with C 20-folic acid 1 mg capsule 1 cap PO DAILY ondansetron 4 mg tablet,disintegrating 4 mg PO PRN PRN polyethylene glycol 3350 [Miralax] 17 gram/dose powder 17 g PO PRN PRN senna-docusate sodium Tablet See Rx Instructions PO .COMPLEX Rx Instructions: 2 tablets by mouth daily PO; levetiracetam 500 mg tablet 500 mg PO Q12H Qty: 180 3RF Rx Instructions: along with an extra 250mg after HD levetiracetam 250 mg tablet 250 mg PO .after dialysis Qty: 36 3RF Rx Instructions: Given x 1 after dialysis; usually 3x per week; in addition to 500mg BID ipratropium-albuterol 3 ML solution for nebulization 3 ml Inhalation Q6H PRN clopidogrel 75 MG tablet 75 mg PO DAILY Rx Instructions: 04/24/19 to be on hold beginning tomorrow for fistula placement scheduled pantoprazole [Protonix] [address] for susp in packet 40 mg PO DAILY atorvastatin 80 mg tablet 80 mg PO QHS insulin glargine [Lantus U-100 Insulin] 100 unit/mL solution See Rx Instructions subcut DAILY Rx Instructions: 4 units subcutaneously nightly and 8 units in the morning. subcut daily; Humalog U-100 Insulin 100 unit/mL cartridge See Rx Instructions subcut TIDWMEAL Rx Instructions: 0-6 units subcut 3 times per day with meals; 12/13/19 slide scale clonazepam 0.25 mg tablet,disintegrating 0.25 mg PO ONCE PRN (Reason: seizure) Qty: 10 0RF Rx Instructions: For seizure activity lasting longer than 1min, ok to place 1 tab inside cheek. Ok to place 2nd if still seizing at 4min. No more than 2 in a single 24 hour midodrine 10 mg tablet 15 mg PO BID tamsulosin 0.4 mg capsule 0.8 mg PO HS nitroglycerin 0.4 mg tablet, sublingual See Rx Instructions .ROUTE .COMPLEX Label Comments: place 1 tablet under the tongue if needed every 5 minutes for mariana... (REFER TO PRESCRIPTION NOTES). Rx Instructions: 1 tab sublingually gabapentin 100 mg capsule 1 cap PO TID Label Comments: take 1 capsule by mouth three times a day sevelamer carbonate 2.4 gram powder in packet See Rx Instructions .ROUTE .COMPLEX Label Comments: VIGOROUSLY MIX CONTENTS OF 1 PACKET IN WATER (IT WILL NOT DISSOLVE) AND DRINK 3 TIMES DAILY WITH MEALS AND TWICE DAILY WITH SNACKS Rx Instructions: 2 packet orally with every meal. 1 packet with every snack. Myrbetriq 50 mg tablet extended release 24 hr 1 tab PO DAILY Label Comments: take 1 tablet by mouth once daily metoprolol tartrate 50 mg Tablet 12.5 mg PO BID aspirin [Aspir-81] 81 mg Tablet,Delayed Release (Dr/Ec) 81 mg PO DAILY sertraline [Zoloft] 100 mg tablet 100 mg PO DAILY AM Medical Decision Making 71-year-old male with history of end-stage renal disease, status post bilateral [id number] amputation with a history of COPD, CVA, atherosclerotic coronary vascular disease. He presents following a completed dialysis run in which he did well. In the transport car after the event he developed abrupt onset of left anterior chest discomfort he describes as sharp. He has not had any shortness of breath or recent cough. He arrives oxygenating normally with a pulse of 68 and blood pressure 140/57. He has mildly reproducible chest discomfort on exam. Patient given acetaminophen, placed on the nuclear monitoring technician, screening labs EKG and chest x-ray obtained. Patient's laboratories are reassuring: White count of 5, hematocrit 29, platelets 135. Sodium slightly low at 135, potassium 4.1, chloride 96, bicarb 30, BUN 50, creatinine 2.3. Troponin is negative. Chest x-ray with chronic pulmonary findings, no evidence of acute abnormality. See formal report. Repeat troponin obtained and negative. Patient improved. He is stable and appropriate for discharge. He will follow-up with his routine dialysis. Lab Data Lab results reviewed: Yes I reviewed the patient's lab results. Labs: Laboratory Results - last 24 hr 02/01/22 02/01/22 02/01/22 14:10 14:10 17:40 WBC 5.65 RBC 3.13 L Hgb 9.6 L Hct 29.3 L MCV 94 MCH 30.7 MCHC 32.8 RDW 14.3 H Plt Count 135 MPV 9.4 Immature Gran % 0.4 Neutrophils % 73.3 Lymphocytes % 9.9 Monocytes % 10.8 Eosinophils % 5.1 Basophils % 0.5 Nucleated RBC % 0.0 Absolute Neutrophils 4.14 Absolute Lymphocytes 0.56 L Absolute Monocytes 0.61 Absolute Eosinophils 0.29 Absolute Basophils 0.03 Sodium 135 L Potassium 4.1 Chloride 96 L Carbon Dioxide 30.8 Anion Gap 8.2 BUN 50 H Creatinine 2.3 H Est GFR (CKD-EPI 2020) 29.43 Glucose 136 H Calcium 8.6 Magnesium 2.0 Total Bilirubin 0.3 AST 14 L ALT 9 L Alkaline Phosphatase 153 H Troponin I < 50 < 50 Total Protein 7.3 Albumin 3.0 L HPI General Mode of arrival: wheelchair . Date/Time Provider Initiated Documentation: 02/01/22 13:40 . Limitations to Documentation: no limitations . Information obtained by: patient . History of Present Illness 71 year old M presents to the emergency department with the chief complaint of Left chest pain after dialysis, and is localized to the chest and left. Patient reports no radiation. Patient started experiencing this minute(s) and it has been constant. No relieving factors improve symptom(s), No exacerbating factors reported . Patient notes denies confusion, cough, fever/chills, shortness of breath and syncope. Patient did receive the following treatments prior to arrival, none Related Data Home Medications Medication Instructions Recorded Confirmed Protonix 40 mg granules 40 mg PO DAILY 04/18/15 02/01/22 delayed-release packet (pantoprazole) clopidogrel 75 mg tablet 75 mg PO DAILY 04/18/15 02/01/22 ipratropium 0.5 mg-albuterol 3 mg 3 ml inhalation Q6H PRN 04/18/15 02/01/22 (2.5 mg base)/3 mL nebulization soln aspirin 81 mg tablet,delayed 81 mg PO DAILY 04/25/19 02/01/22 release (Aspir-) metoprolol tartrate 50 mg tablet 12.5 mg PO BID 04/25/19 02/01/22 Humalog U-100 Insulin 100 unit/mL See Rx Instructions subcut TIDWMEAL 05/02/21 02/01/22 subcutaneous cartridge (insulin lispro) Lantus U-100 Insulin 100 unit/mL See Rx Instructions subcut DAILY 05/02/21 02/01/22 subcutaneous solution (insulin glargine) acetaminophen 500 mg capsule 1,000 mg PO Q8H PRN PRN 05/02/21 02/01/22 atorvastatin 80 mg tablet 80 mg PO QHS 05/02/21 02/01/22 budesonide-formoterol HFA 160 2 puff inhalation BID 05/02/21 02/01/22 mcg-4.5 mcg/actuation aerosol inhaler clonazepam 0.25 mg disintegrating 0.25 mg PO ONCE PRN seizure #10 05/02/21 02/01/22 tablet tabs fluticasone propionate 50 1 spray intranasal DAILY 05/02/21 02/01/22 mcg/actuation nasal spray,suspension food supplemt, lactose-reduced See Rx Instructions .Route .COMPLEX 05/02/21 02/01/22 (High-Protein Nutritional Shake oral liquid) hydromorphone 2 mg tablet 2 mg PO .COMPLEX 05/02/21 02/01/22 levetiracetam 250 mg tablet 250 mg PO .after dialysis #36 tabs 05/02/21 02/01/22 levetiracetam 500 mg tablet 500 mg PO Q12H #180 tabs 05/02/21 02/01/22 miconazole nitrate 2 % topical 1 applic topical BID 05/02/21 02/01/22 powder midodrine 10 mg tablet 15 mg PO BID 05/02/21 02/01/22 ondansetron 4 mg disintegrating 4 mg PO PRN PRN 05/02/21 02/01/22 tablet polyethylene glycol 3350 17 17 g PO PRN PRN 05/02/21 02/01/22 gram/dose oral powder (Miralax) senna-docusate sodium tablet See Rx Instructions PO .COMPLEX 05/02/21 02/01/22 sertraline 100 mg tablet (Zoloft) 100 mg PO DAILY AM 05/02/21 02/01/22 tamsulosin 0.4 mg capsule 0.8 mg PO HS 05/02/21 02/01/22 vitamin B complex and vitamin C 1 cap PO DAILY 05/02/21 02/01/22 no.20-folic acid 1 mg capsule gabapentin 100 mg capsule 1 cap PO TID 02/01/22 02/01/22 mirabegron 50 mg tablet,extended 1 tab PO DAILY 02/01/22 02/01/22 release 24 hr (Myrbetriq) nitroglycerin 0.4 mg sublingual See Rx Instructions .Route .COMPLEX 02/01/22 02/01/22 tablet sevelamer carbonate 2.4 gram oral See Rx Instructions .Route .COMPLEX 02/01/22 02/01/22 powder packet Previous Rx's Medication Instructions Recorded clonazepam 0.25 mg disintegrating 0.25 mg PO ONCE PRN seizure #10 05/02/21 tablet tabs levetiracetam 250 mg tablet 250 mg PO .after dialysis #36 tabs 05/02/21 levetiracetam 500 mg tablet 500 mg PO Q12H #180 tabs 05/02/21 Allergies Allergy/AdvReac Type Severity Reaction Status Date / Time adhesive tape Allergy Unverified 02/01/22 15:10 Iodinated Contrast Media Allergy Unverified 02/01/22 15:10 [Iodinated Contrast Media - IV Dye] tramadol AdvReac Severe seizure Verified 02/01/22 15:10 General Stated Complaint: Chest Pain MADELAINE: 2 Review of Systems Narrative: Completed dialysis today. Left AV fistula no longer working, left anterior ches t port. No recent illness. 7 systems were reviewed. Patient has continued to make PFSH All Active Problems (Updated 02/01/22 @ 18:30 by Lalito Patterson MD) Atypical chest pain (Acute) ESRD (end stage renal disease) on dialysis (Acute) On supplemental oxygen by nasal cannula (Acute) COPD (chronic obstructive pulmonary disease) (Chronic) Partial epilepsy (Acute) Chronic renal insufficiency, stage V (Chronic) Medical History ASCVD (arteriosclerotic cardiovascular disease) CHF (congestive heart failure) Depression DM (diabetes mellitus) GERD (gastroesophageal reflux disease) Hyperlipidemia Hypertension Peripheral artery disease Stroke Surgical History Coronary Stent S/P AKA (above knee amputation) bilateral S/P CABG x 3 Tonsillectomy and adenoidectomy Vasectomy Family History Mother Hypertension Hyperlipidemia Heart disease Father Diabetes Social History Smoking/Tobacco Use Status: Former Tobacco Use Smoking risk assessment performed?: Yes Alcohol Intake: never Drug use: Never Substance use type: does not use Household members: spouse Number of Children: 2 current occupation: Disabled Do you feel safe at home: Yes Do you feel safe in your relationship?: Yes Additional Social history: pt lives at home with his Exam Narrative Exam Narrative: GEN: awake, alert, oriented 3. Pleasant, well groomed, interactive. HEAD: Normocephalic, atraumatic ENT: Mucous membranes moist, oropharynx unremarkable, External ear exam unremarkable EYES: PERRL, EOMI NECK: Full ROM, no MERRILL, no menigismus CHEST/RESP: Left anterior chest port, scattered rhonchi present, anterior chest wall tenderness to palpation CARDIOVASCULAR: Distant RRR, no murmur, rub onel. 2+ Rad pulse bilateral ABDOMEN: Soft, nontender, no mass. +Bowel sounds, urinary catheter in place EXT: Full ROM, bilateral [id number] Neuro: Grossly normal neurologic exam, conversant, interactive. Psych: Speech fluent, thoughts congruent, affect normal Course Vital Signs Vital signs: Vital Signs Temperature 36.8 C 02/01/22 13:42 Pulse 68 02/01/22 13:42 Respiratory Rate 20 02/01/22 13:42 Blood Pressure 140/57 L 02/01/22 13:42 Pulse Oximetry 99 02/01/22 13:42 Temperature 36.8 C 02/01/22 13:42 Temperature Source Temporal Artery Scan 02/01/22 13:42 Pulse 68 02/01/22 13:42 Respiratory Rate 20 02/01/22 13:42 Respiratory Effort Non-Labored 02/01/22 13:47 Blood Pressure 140/57 L 02/01/22 13:42 Pulse Oximetry 99 02/01/22 13:42 Oxygen Delivery Method Room Air 02/01/22 13:42 Oxygen Flow Rate 0 02/01/22 13:42 Pain Level 7 02/01/22 13:42
[2022-02-01 14:23] LABS: Abs Immature Grans 0.02 10^3/uL (0.0-0.06); Absolute Basophil Count 0.03 10^3/uL (0.0-0.2); Absolute Eosinophil Count 0.29 10^3/uL (0.0-0.7); Absolute Lymphocyte Count 0.56 10^3/uL (1.2-3.4); Absolute Monocyte Count 0.61 10^3/uL (0.1-0.8); Absolute Neutrophil Count 4.14 10^3/uL (1.2-6.7); Basophils % 0.5; Eosinophils % 5.1; HCT 29.3 % (40.0-50.0); HGB 9.6 g/dL (13.5-17.5); Immature Grans % 0.4; Lymphocytes % 9.9; MCH 30.7 pg (27.0-33.0); MCHC 32.8 % (32.0-36.0); MCV 94 fL (80-95); MPV 9.4 fL (8.0-11.0); Monocytes % 10.8; Neutrophils % 73.3; Platelet Count 135 10^3/uL (130-400); RBC 3.13 10^6/uL (4.36-5.78); RDW 14.3 % (11.8-14.1); RDW-SD 48.3 fL; WBC 5.65 10^3/uL (4.4-10.8)
[2022-02-01] MEDS: ACETAMINOPHEN 1,000 MG/100 ML BTL 400 MG IVPB (14:27)
[2022-02-01 14:43] LABS: ALT 9 U/L (16-63); AST 14 U/L (15-37); Alkaline Phosphatase 153 U/L (46-116); Anion Gap 8.2 mmol/L (3-11); BUN 50 mg/dL (7-18); Bilirubin, Total 0.3 mg/dL (0.2-1.0); CO2 30.8 mmol/L (21.0-32.0); CREATININE 2.3 mg/dL (0.70-1.30); Calcium 8.6 mg/dL (8.5-10.1); Chloride 96 mmol/L (98-107); Estimated GFR 29.43 (mL/min/1.73m2); Glucose 136 mg/dL (74-106); Potassium 4.1 mmol/L (3.5-5.1); Sodium 135 mmol/L (136-145); Total Protein 7.3 g/dL (6.4-8.2); Troponin I < 50 ng/L (<or=60)
--- NOTE | 2022-02-01 14:45 | DI.RAD_ITS ---
Exam(s) XR CHEST 2V PA LATERAL EXAM: XR CHEST 2V PA LATERAL CLINICAL HISTORY: L ant chest pain TECHNIQUE: 2D digital imaging was performed. COMPARISON: CR,XR XR CHEST 2V PA LATERAL from 04/25/[address] ABDOMEN PELVIS WO from 02/07/2021 CR XR CHEST 2V PA LATERAL from 02/07/2021 CR XR PORTABLE CHEST AP from 02/21/2021 CR XR PORTABLE CHEST AP from 04/25/2021 FINDINGS: HEART: Normal size. Prior CABG. Double-lumen catheter unchanged. Aorta: PULMONARY VASCULATURE: Normal. LUNGS: Stable chronic blunting at the right costophrenic angle. Underlying fibrotic changes. No beltran ss superimposed infiltrate, effusion or pulmonary edema. Acute infiltrates are difficult to exclude is is severity of underlying chronic pulmonary findings. PLEURAL SPACE: No pleural effusion or pneumothorax. BONE:Sternal wires. Spine is mainly obscured. IMPRESSION: Chronic pulmonary findings. No gross evidence of an acute abnormality. DATA REPOSITORY: RADIATION DOSE DELIVERED:
--- NOTE | 2022-02-01 15:25 | NUR.NOTE ---
Nursing Note: states patient needs to have honey thick liquids and pureed foods.
[2022-02-01 18:02] LABS: Troponin I < 50 ng/L (<or=60)
== END 2022-02-01 19:39 | disposition home or self-care (01) ==
PROVIDERS: Emergency Provider Emergency Medicine; PCP Internal Medicine
DX: R07.89 Other chest pain (principal); J44.9 Chronic obstructive pulmonary disease, unspecified; I13.2 Hypertensive heart and chronic kidney disease with heart failure and with stage 5 chronic kidney disease, or end stage renal disease; E11.22 Type 2 diabetes mellitus with diabetic chronic kidney disease; E11.51 Type 2 diabetes mellitus with diabetic peripheral angiopathy without gangrene; N18.6 End stage renal disease; I50.9 Heart failure, unspecified; Z86.73 Personal history of transient ischemic attack (TIA), and cerebral infarction without residual deficits; Z89.611 Acquired absence of right leg above knee; Z89.612 Acquired absence of left leg above knee; Z99.2 Dependence on renal dialysis; Z79.51 Long term (current) use of inhaled steroids; Z87.891 Personal history of nicotine dependence; Z95.5 Presence of coronary angioplasty implant and graft
CPT/HCPCS: 36415; 80053; 93005; 96365; 99284; 71046; 83735; 84484; 85025; 93010; 99285; J0131

== ENCOUNTER 2022-07-18 13:25 | Inpatient (IN) | payer MEDICARE, MEDICAID, SELFPAY ==
[2022-07-18] VITALS (39 sets, daily range): BP systolic 92–137; BP diastolic 43–65; PULSE 91–114; RESP 7–28; TEMP 37.2–37.4; O2SAT 86–100
--- NOTE | 2022-07-18 13:30 | DI.CT_ITS ---
Exam(s) CT HEAD WO EXAM: CT HEAD WO CLINICAL HISTORY: ams. TECHNIQUE: Imaging Protocol: Axial computed tomography images with coronal and sagittal reformatted images were created and reviewed COMPARISON: CT CT HEAD WO from 04/25/2021 FINDINGS: Ventricles and Extra axial spaces: Enlarged but stable from prior Hemorrhage: None. Cerebral parenchyma: Significant atrophy, somewhat disproportionate for the patient's age. Midline shift: None. Brainstem/Cerebellum: Normal. Calvarium: Normal. Visualized Paranasal sinuses/Mastoids: Clear. Soft Tissues: Unremarkable. IMPRESSION: Atrophy. No acute intracranial process. RADIATION DOSE DELIVERED: 860.97mGy.cm Total DLP DATA REPOSITORY: All CT scans at this facility are submitted to the National Radiology Data Registry (NRDR) Dose Index Registry (DIR) with the [employer] ([employer]). RADIATION OPTIMIZATION: All CT scans at this facility use at least one of these dose optimization te chniques: automated exposure control; mA and/or kV adjustment per patient size (includes targeted exa ms where dose is matched to clinical indication); or iterative reconstruction.
--- NOTE | 2022-07-18 13:30 | RT.EKG_ITS ---
APPROVED REPORT Exam: Resting ECG Reason for Exam: weakness Patient Location: E HR:93 bpm ECG Measurements Heart Rate 93 AXIS IN [id number] P [id number] QRSd 99 QRS 142 QT 416 T 66 QTc 529 Conclusion Atrial flutter...A-rate 242 Right axis deviation...QRS axis ( 91,269) Prolonged QT interval...QTc >500mS significant motion artifact, no stemi
--- NOTE | 2022-07-18 13:30 | DI.CT_ITS ---
Exam(s) CT CHEST/ABD/PEL WO EXAM: CT CHEST/ABD/PEL WO CLINICAL HISTORY: ams, hyypoxic. TECHNIQUE: Imaging Protocol: Axial computed tomography images with coronal and sagittal reformatted images were created and reviewed CONTRAST MATERIAL: Intravenous: Noncontrast Oral: no COMPARISON: CR,XR XR CHEST 2V PA LATERAL from 04/25/2019 CR XR CHEST 2V PA LATERAL from 02/07/[address] ABDOMEN PELVIS WO from 02/07/2021 CR XR PORTABLE CHEST AP from 02/21/2021 CR XR PORTABLE CHEST AP from 04/25/2021 CR XR CHEST 2V PA LATERAL from 02/01/2022 FINDINGS: CHEST: Tracheobronchial tree: Calcified bronchial tree. Debris noted in both lower lobe bronchi. Pulmonary parenchyma: Bilateral lower lobe infiltrates, greater on the right. Findings appear simila r to prior abdomen CT. Mild infiltrates seen in the left upper and right upper lobes. Pleura: No effusion or pneumothorax. Right-sided pleural thickening and calcification. Lymph nodes: Within normal limits. Aorta: Heavily calcified. Heart: Enlarged. Coronary artery calcifications. Status post CABG. Mitral annular calcifications . Center venous catheter with tip in right atrium. Bones: Sternal wires.. Scoliosis. Mild degenerative changes. ABDOMEN: Exam limited by patient motion Liver: Normal density. No measurable mass. Gallbladder and biliary tract: No radiodense calculus or dilation. Pancreas: Normal density, no abnormal calcifications or inflammatory process. Spleen: Normal. Kidneys: Normal size, contour and axis. No radiodense stones or obstructive uropathy. Bilateral renal cysts. No suspicious masses seen. Adrenal glands: No masses seen. Aorta: Abdominal portion non-dilated. Severe atherosclerotic changes. Iliac artery stents. Lymph nodes: Within normal limits. Soft tissues: Body wall edema. PELVIS: Bladder: Casanova catheter. Bowel: Large quantity of stool within the colon. High-density material noted in the transverse throu gh rectosigmoid consistent with previously administered contrast material. No small bowel dilatation . No obstruction or bowel wall thickening. Peritoneal cavity: No ascites, collection or mesenteric inflammatory response. Bones: Degenerative changes and scoliosis. Sclerotic lesion left superior pubic ramus bilateral L5 s pondylolysis.. Reproductive organs: Enlarged prostate. IMPRESSION: Bilateral lower lobe infiltrates with mucous plugging with similar appearance to prior abdomen CT 202 1. Milder infiltrates also noted in the upper lobes. Large quantity of fecal material. No evidence of small bowel distension. RADIATION DOSE DELIVERED: 959.1mGy.cm Total DLP DATA REPOSITORY: All CT scans at this facility are submitted to the National Radiology Data Registry (NRDR) Dose Index Registry (DIR) with the [employer] ([employer]). RADIATION OPTIMIZATION: All CT scans at this facility use at least one of these dose optimization te chniques: automated exposure control; mA and/or kV adjustment per patient size (includes targeted exa ms where dose is matched to clinical indication); or iterative reconstruction.
[2022-07-18] MEDS: Albuterol/Ipratropium 3 ML UPD VIAL 6 ML UPD (13:54)
[2022-07-18] MEDS: Lactated Ringers 1,000 ML 1000 ML IV (13:55)
[2022-07-18 14:02] LABS: Abs Immature Grans 0.07 10^3/uL (0.0-0.06); Absolute Basophil Count 0.02 10^3/uL (0.0-0.2); Absolute Eosinophil Count 0.03 10^3/uL (0.0-0.7); Absolute Lymphocyte Count 0.59 10^3/uL (1.2-3.4); Absolute Neutrophil Count 14.06 10^3/uL (1.2-6.7); Basophils % 0.1; Eosinophils % 0.2; HCT 37.3 % (40.0-50.0); HGB 11.9 g/dL (13.5-17.5); Immature Grans % 0.4; Lymphocytes % 3.7; MCH 30.1 pg (27.0-33.0); MCHC 31.9 % (32.0-36.0); MCV 94 fL (80-95); MPV 11.5 fL (8.0-11.0); Monocytes % 8.1; Neutrophils % 87.5; Platelet Count 129 10^3/uL (130-400); RBC 3.95 10^6/uL (4.36-5.78); RDW 18.7 % (11.8-14.1); RDW-SD 61.9 fL; WBC 16.07 10^3/uL (4.4-10.8)
[2022-07-18 14:03] LABS: Lactate 1.9 mmol/L (0.6-1.4)
[2022-07-18 14:18] LABS: BE 0 mmol/L (-2-3); HCO3 25 mmol/L (22-26); pCO2 41 mmHg (35-45); pH 7.39 (7.35-7.45); pO2 99 mmHg (80-105); sO2 98 % (95-98); tCO2 23 mmol/L (23-27)
[2022-07-18 14:19] LABS: FIO2 35 %; Site Right Brachial
[2022-07-18 14:24] LABS: ALT 12 U/L (16-63); AST 14 U/L (15-37); Albumin 2.8 g/dL (3.4-5.0); Alkaline Phosphatase 89 U/L (46-116); Anion Gap 15.3 mmol/L (3-11); Bilirubin, Total 0.8 mg/dL (0.2-1.0); CO2 26.7 mmol/L (21.0-32.0); Calcium 9.5 mg/dL (8.5-10.1); Chloride 96 mmol/L (98-107); Estimated GFR 11.52 (mL/min/1.73m2); Glucose 276 mg/dL (74-106); Sodium 138 mmol/L (136-145)
[2022-07-18 14:27] LABS: Magnesium 2.2 mg/dL (1.8-2.4)
[2022-07-18 14:31] LABS: BUN 107 mg/dL (7-18)
[2022-07-18 14:32] LABS: Potassium 6.3 mmol/L (3.5-5.1)
[2022-07-18 14:33] LABS: Troponin I 96 ng/L (<or=60)
[2022-07-18 14:46] LABS: Bilirubin Negative (Negative); Blood Moderate (Negative); Clarity Clear (Clear); Glucose Negative (Negative); Ketones Negative (Negative); Leukocyte Esterase Small (Negative); Nitrite Negative (Negative); Urobilinogen 0.2 mg/dL (Up to 0.2)
[2022-07-18] MEDS: Furosemide 20 MG/2 ML VIAL IVP (15:06)
[2022-07-18] MEDS: Calcium Gluconate 4.65 MEQ/10 ML VIAL 4.65 MG IVP (15:09)
[2022-07-18 15:10] LABS: COVID-19 PCR Negative (Negative); Influenza A PCR Negative (Negative); Influenza B PCR Negative (Negative); RSV PCR Negative (Negative)
[2022-07-18 15:11] LABS: Source Nasopharynx
[2022-07-18] MEDS: Insulin REGULAR-Human 100 UNITS/ML UNIT 10 UNITS IV (15:22)
[2022-07-18] MEDS: PIPERACILLIN/TAZO 3.375 GM in Normal Saline 50 ML IVPB (15:24)
--- NOTE | 2022-07-18 16:04 | W.ED.GENAD ---
Discharge Plan Disposition Patient Disposition: Admit to [facility] Condition: Deteriorating Discharge Details Clinical Impression: Aspiration pneumonia Admit Date/Time: 07/18/22 18:01 Admit Provider: Valentin Monsalve Attending Provider: Valentin Monsalve Primary Care Provider: Nayla Valles ED Provider: Bhavya Doll Discharge Data Discharge Date/Time-TO BE ENTERED AT DEPARTURE: 07/18/22 18:36 Medical Decision Making <EDGARDO Valdovinos - Last Filed: 07/19/22 09:28> This 72-year-old gentleman presents in acute respiratory failure and somnolence from the dialysis center BiPAP, duoneb, labs, insulin, zosyn, 500 cc bolus of LR, and Lasix were administered to treat hyperkalemia, respiratory failure, and hypotension/sepsis Patient subsequently mentioned that she would like to transition to comfort measures/hospice given comorbidities and current health status pt and are in room and pt clearly states that he no longer wants to purse treatment for his condition both pt and are aware that pt will likely succomb to his illness if he does not pursue treatment and patient are in agreement and BiPAP will remain for comfort and morphine for comfort, spoke with Lucrecia Haney from hospice and he will be assessed tomorrow, will admit to the hospital for comfort care, Will withhold any additional life-saving interventions at this time and comfort measures to include pain medications only at this time after discussion with family will admit pt to hospital for comfort care transition and palliative care consult at time of reassessment, all additional labs and resuscitation efforts will be witheld per family and pt recommendations [facility] and [facility] 1705: [place]: Care assumed from provider (EDGARDO Valdovinos) Please see their initial HPI, PE, and documentation. Discussed patient details and case and pending workup and disposition. At the time of signout awaiting hospitalist call to transition to comfort measures previous colleague spoke with palliative care Lucrecia Haney on the phone who will see the patient tomorrow. 1755: Spoke with Dr. Monsalve who is on for hospitalist, he agrees to accept patient for admission. Discussed plan of care with family who verbalized understanding and are in agreement with the plan. Patient transferred to the floor. Medical Records Medical records reviewed: Yes I reviewed the patient's medical records. <Bhavya Doll NP - Last Filed: 07/18/22 18:54> This 72-year-old gentleman presents in acute respiratory failure with hyperkalemia, and somnolence BiPAP, labs, insulin, and Lasix were administered Patient subsequently mentioned that she would like to transition to hospice care and patient are in agreement and BiPAP will remain for comfort and morphine for comfort, spoke with Lucrecia Haney from hospice and he will be assessed tomorrow, will admit to the hospital for comfort care, Will withhold any additional life-saving interventions at this time and comfort measures to include pain medications only at this time after discussion with family 1705: [place]: Care assumed from provider (EDGARDO Valdovinos) Please see their initial HPI, PE, and documentation. Discussed patient details and case and pending workup and disposition. At the time of signout awaiting hospitalist call to transition to comfort measures previous colleague spoke with palliative care Lucrecia Haney on the phone who will see the patient tomorrow. 1755: Spoke with Dr. Monsalve who is on for hospitalist, he agrees to accept patient for admission. Discussed plan of care with family who verbalized understanding and are in agreement with the plan. Patient transferred to the floor. Lab Data Lab results reviewed: Yes I reviewed the patient's lab results. Labs: Laboratory Tests Range/Units 07/18/22 07/18/22 07/18/22 13:50 13:50 13:50 WBC (4.4-10.8) 10^3/uL 16.07 H RBC (4.36-5.78) 10^6/uL 3.95 L Hgb (13.5-17.5) g/dL 11.9 L Hct (40.0-50.0) % 37.3 L MCV (80-95) fL 94 MCH (27.0-33.0) pg 30.1 MCHC (32.0-36.0) % 31.9 L RDW (11.8-14.1) % 18.7 H Plt Count (130-400) 10^3/uL 129 L MPV (8.0-11.0) fL 11.5 H Immature Gran % 0.4 Neutrophils % 87.5 Lymphocytes % 3.7 Monocytes % 8.1 Eosinophils % 0.2 Basophils % 0.1 Nucleated RBC % (0.0-0.3) % 0.0 Absolute Neutrophils (1.2-6.7) 10^3/uL 14.06 H Absolute Lymphocytes (1.2-3.4) 10^3/uL 0.59 L Absolute Monocytes (0.1-0.8) 10^3/uL 1.30 H Absolute Eosinophils (0.0-0.7) 10^3/uL 0.03 Absolute Basophils (0.0-0.2) 10^3/uL 0.02 ABG Sample Site ABG pH (7.35-7.45) ABG pCO2 (35-45) mmHg ABG pO2 (80-105) mmHg ABG HCO3 (22-26) mmol/L ABG Total CO2 (23-27) mmol/L ABG O2 Saturation (95-98) % ABG Base Excess (-2-3) mmol/L VBG Lactate (0.6-1.4) mmol/L 1.9 H FiO2 % Sodium (136-145) mmol/L 138 Potassium (3.5-5.1) mmol/L 6.3 H* Chloride (98-107) mmol/L 96 L Carbon Dioxide (21.0-32.0) mmol/L 26.7 Anion Gap (3-11) mmol/L 15.3 H BUN (7-18) mg/dL 107 H* Creatinine (0.70-1.30) mg/dL 5.0 H* Est GFR (CKD-EPI 2020) (mL/min/1.73m2) 11.52 Glucose (74-106) mg/dL 276 H Calcium (8.5-10.1) mg/dL 9.5 Magnesium (1.8-2.4) mg/dL Total Bilirubin (0.2-1.0) mg/dL 0.8 AST (15-37) U/L 14 L ALT (16-63) U/L 12 L Alkaline Phosphatase (46-116) U/L 89 Troponin I (<or=60) ng/L Total Protein (6.4-8.2) g/dL 7.0 Albumin (3.4-5.0) g/dL 2.8 L Urine Color (Yellow) Urine Clarity (Clear) Urine pH (5-8) Ur Specific [place] (1.005-1.025) Urine Protein (Negative) mg/dL Urine Ketones (Negative) mg/dL Urine Blood (Negative) Urine Nitrite (Negative) Urine Bilirubin (Negative) Urine Urobilinogen (Up to 0.2) mg/dL Ur Leukocyte Esterase (Negative) Urine Glucose (Negative) mg/dL COVID-19 Source SARS-CoV-2 (PCR) (Negative) Influenza Type A (PCR) (Negative) Influenza Type B (PCR) (Negative) RSV (PCR) (Negative) Range/Units 07/18/22 07/18/22 07/18/22 13:50 14:14 14:27 WBC (4.4-10.8) 10^3/uL RBC (4.36-5.78) 10^6/uL Hgb (13.5-17.5) g/dL Hct (40.0-50.0) % MCV (80-95) fL MCH (27.0-33.0) pg MCHC (32.0-36.0) % RDW (11.8-14.1) % Plt Count (130-400) 10^3/uL MPV (8.0-11.0) fL Immature Gran % Neutrophils % Lymphocytes % Monocytes % Eosinophils % Basophils % Nucleated RBC % (0.0-0.3) % Absolute Neutrophils (1.2-6.7) 10^3/uL Absolute Lymphocytes (1.2-3.4) 10^3/uL Absolute Monocytes (0.1-0.8) 10^3/uL Absolute Eosinophils (0.0-0.7) 10^3/uL Absolute Basophils (0.0-0.2) 10^3/uL ABG Sample Site Right Brachial ABG pH (7.35-7.45) 7.39 ABG pCO2 (35-45) mmHg 41 ABG pO2 (80-105) mmHg 99 ABG HCO3 (22-26) mmol/L 25 ABG Total CO2 (23-27) mmol/L 23 ABG O2 Saturation (95-98) % 98 ABG Base Excess (-2-3) mmol/L 0 VBG Lactate (0.6-1.4) mmol/L FiO2 % 35 Sodium (136-145) mmol/L Potassium (3.5-5.1) mmol/L Chloride (98-107) mmol/L Carbon Dioxide (21.0-32.0) mmol/L Anion Gap (3-11) mmol/L BUN (7-18) mg/dL Creatinine (0.70-1.30) mg/dL Est GFR (CKD-EPI 2020) (mL/min/1.73m2) Glucose (74-106) mg/dL Calcium (8.5-10.1) mg/dL Magnesium (1.8-2.4) mg/dL 2.2 Total Bilirubin (0.2-1.0) mg/dL AST (15-37) U/L ALT (16-63) U/L Alkaline Phosphatase (46-116) U/L Troponin I (<or=60) ng/L 96 H* Total Protein (6.4-8.2) g/dL Albumin (3.4-5.0) g/dL Urine Color (Yellow) Urine Clarity (Clear) Urine pH (5-8) Ur Specific [place] (1.005-1.025) Urine Protein (Negative) mg/dL Urine Ketones (Negative) mg/dL Urine Blood (Negative) Urine Nitrite (Negative) Urine Bilirubin (Negative) Urine Urobilinogen (Up to 0.2) mg/dL Ur Leukocyte Esterase (Negative) Urine Glucose (Negative) mg/dL COVID-19 Source Nasopharynx SARS-CoV-2 (PCR) (Negative) Negative Influenza Type A (PCR) (Negative) Negative Influenza Type B (PCR) (Negative) Negative RSV (PCR) (Negative) Negative Range/Units 07/18/22 07/18/22 14:35 16:39 WBC (4.4-10.8) 10^3/uL RBC (4.36-5.78) 10^6/uL Hgb (13.5-17.5) g/dL Hct (40.0-50.0) % MCV (80-95) fL MCH (27.0-33.0) pg MCHC (32.0-36.0) % RDW (11.8-14.1) % Plt Count (130-400) 10^3/uL MPV (8.0-11.0) fL Immature Gran % Neutrophils % Lymphocytes % Monocytes % Eosinophils % Basophils % Nucleated RBC % (0.0-0.3) % Absolute Neutrophils (1.2-6.7) 10^3/uL Absolute Lymphocytes (1.2-3.4) 10^3/uL Absolute Monocytes (0.1-0.8) 10^3/uL Absolute Eosinophils (0.0-0.7) 10^3/uL Absolute Basophils (0.0-0.2) 10^3/uL ABG Sample Site ABG pH (7.35-7.45) ABG pCO2 (35-45) mmHg ABG pO2 (80-105) mmHg ABG HCO3 (22-26) mmol/L ABG Total CO2 (23-27) mmol/L ABG O2 Saturation (95-98) % ABG Base Excess (-2-3) mmol/L VBG Lactate (0.6-1.4) mmol/L FiO2 % Sodium (136-145) mmol/L Potassium (3.5-5.1) mmol/L Chloride (98-107) mmol/L Carbon Dioxide (21.0-32.0) mmol/L Anion Gap (3-11) mmol/L BUN (7-18) mg/dL Creatinine (0.70-1.30) mg/dL Est GFR (CKD-EPI 2020) (mL/min/1.73m2) Glucose (74-106) mg/dL Calcium (8.5-10.1) mg/dL Magnesium (1.8-2.4) mg/dL Total Bilirubin (0.2-1.0) mg/dL AST (15-37) U/L ALT (16-63) U/L Alkaline Phosphatase (46-116) U/L Troponin I (<or=60) ng/L Cancelled Total Protein (6.4-8.2) g/dL Albumin (3.4-5.0) g/dL Urine Color (Yellow) Yellow Urine Clarity (Clear) Clear Urine pH (5-8) 7.0 Ur Specific [place] (1.005-1.025) 1.020 Urine Protein (Negative) mg/dL >=300 H Urine Ketones (Negative) mg/dL Negative Urine Blood (Negative) Moderate H Urine Nitrite (Negative) Negative Urine Bilirubin (Negative) Negative Urine Urobilinogen (Up to 0.2) mg/dL 0.2 Ur Leukocyte Esterase (Negative) Small H Urine Glucose (Negative) mg/dL Negative COVID-19 Source SARS-CoV-2 (PCR) (Negative) Influenza Type A (PCR) (Negative) Influenza Type B (PCR) (Negative) RSV (PCR) (Negative) HPI <EDGARDO Valdovinos - Last Filed: 07/19/22 09:28> General Date/Time Provider Initiated Documentation: 07/18/22 13:26. HPI Narrative: This 72-year-old gentleman with history of partial epilepsy, CKD on dialysis prevent stents from dialysis center with report of hypoxia and fatigue which started prior to completion of dialysis. Reports of discharge from inpatient stay for aspiration pneumonia with intubation on 07/16/2022 to home. Patient reports difficulty breathing and weakness. denies any pain complaints, poor historian at time of assessment Related Data Home Medications Medication Instructions Recorded Confirmed Protonix 40 mg granules 40 mg PO DAILY 04/18/15 07/18/22 delayed-release packet (pantoprazole) clopidogrel 75 mg tablet 75 mg PO DAILY 04/18/15 07/18/22 ipratropium 0.5 mg-albuterol 3 mg 3 ml inhalation Q6H PRN 04/18/15 07/18/22 (2.5 mg base)/3 mL nebulization soln aspirin 81 mg tablet,delayed 81 mg PO DAILY 04/25/19 07/18/22 release (Aspir-) metoprolol tartrate 50 mg tablet 12.5 mg PO BID 04/25/19 07/18/22 Humalog U-100 Insulin 100 unit/mL See Rx Instructions subcut TIDWMEAL 05/02/21 07/18/22 subcutaneous cartridge (insulin lispro) Lantus U-100 Insulin 100 unit/mL See Rx Instructions subcut DAILY 05/02/21 07/18/22 subcutaneous solution (insulin glargine) atorvastatin 80 mg tablet 80 mg PO QHS 05/02/21 07/18/22 budesonide-formoterol HFA 160 2 puff inhalation DAILY 05/02/21 07/18/22 mcg-4.5 mcg/actuation aerosol inhaler clonazepam 0.25 mg disintegrating 0.25 mg PO ONCE PRN seizure #10 05/02/21 07/18/22 tablet tabs fluticasone propionate 50 1 spray intranasal DAILY 05/02/21 07/18/22 mcg/actuation nasal spray,suspension food supplemt, lactose-reduced See Rx Instructions .Route .COMPLEX 05/02/21 07/18/22 (High-Protein Nutritional Shake oral liquid) hydromorphone 2 mg tablet 2 mg PO .COMPLEX 05/02/21 02/01/22 levetiracetam 250 mg tablet 250 mg PO .after dialysis #36 tabs 05/02/21 07/18/22 levetiracetam 500 mg tablet 500 mg PO Q12H #180 tabs 05/02/21 07/18/22 miconazole nitrate 2 % topical 1 applic topical BID 05/02/21 02/01/22 powder midodrine 10 mg tablet 10 mg PO BID 05/02/21 07/18/22 ondansetron 4 mg disintegrating 4 mg PO PRN PRN 05/02/21 07/18/22 tablet polyethylene glycol 3350 17 17 g PO PRN PRN 05/02/21 07/18/22 gram/dose oral powder (Miralax) senna-docusate sodium tablet See Rx Instructions PO .COMPLEX 05/02/21 07/18/22 sertraline 100 mg tablet (Zoloft) 100 mg PO DAILY AM 05/02/21 07/18/22 tamsulosin 0.4 mg capsule 0.8 mg PO HS 05/02/21 07/18/22 vitamin B complex and vitamin C 1 cap PO DAILY 05/02/21 02/01/22 no.20-folic acid 1 mg capsule gabapentin 100 mg capsule 1 cap PO TID 02/01/22 07/18/22 mirabegron 50 mg tablet,extended 1 tab PO DAILY 02/01/22 07/18/22 release 24 hr (Myrbetriq) nitroglycerin 0.4 mg sublingual See Rx Instructions .Route .COMPLEX 02/01/22 07/18/22 tablet sevelamer carbonate 2.4 gram oral See Rx Instructions .Route .COMPLEX 02/01/22 07/18/22 powder packet acetaminophen 325 mg tablet 650 mg PO Q6H PRN 07/18/22 07/18/22 acetaminophen 650 mg 650 mg PO TID PRN 07/18/22 07/18/22 tablet,extended release (Tylenol Arthritis Pain) docusate sodium 100 mg capsule 100 mg PO BID 03/08/23 03/08/23 (Colace) fludrocortisone 0.1 mg tablet 0.1 mg PO DAILY 07/18/22 07/18/22 starch (thickening) (Diafoods 1 pwd PO TID 07/18/22 07/18/22 Thick-It oral powder) Previous Rx's Medication Instructions Recorded clonazepam 0.25 mg disintegrating 0.25 mg PO ONCE PRN seizure #10 05/02/21 tablet tabs levetiracetam 250 mg tablet 250 mg PO .after dialysis #36 tabs 05/02/21 levetiracetam 500 mg tablet 500 mg PO Q12H #180 tabs 05/02/21 Allergies Allergy/AdvReac Type Severity Reaction Status Date / Time adhesive tape Allergy Unverified 07/18/22 16:22 Iodinated Contrast Media Allergy Unverified 07/18/22 16:22 [Iodinated Contrast Media - IV Dye] tramadol AdvReac Severe seizure Verified 07/18/22 16:22 General Stated Complaint: SOB MADELAINE: 2 PFSH <EDGARDO Valdovinos - Last Filed: 07/19/22 09:28> All Active Problems (Updated 07/18/22 @ 20:47 by Valentin Monsalve MD) Acute respiratory failure with hypoxia (Acute) Aspiration pneumonia (Acute) ESRD (end stage renal disease) on dialysis (Acute) On supplemental oxygen by nasal cannula (Acute) COPD (chronic obstructive pulmonary disease) (Chronic) Partial epilepsy (Acute) Chronic renal insufficiency, stage V (Chronic) Medical History ASCVD (arteriosclerotic cardiovascular disease) CHF (congestive heart failure) Depression DM (diabetes mellitus) GERD (gastroesophageal reflux disease) Hyperlipidemia Hypertension Peripheral artery disease Stroke Surgical History Coronary Stent S/P AKA (above knee amputation) bilateral S/P CABG x 3 Tonsillectomy and adenoidectomy Vasectomy Family History Mother Hypertension Hyperlipidemia Heart disease Father Diabetes Social History Smoking/Tobacco Use Status: Former Tobacco Use Smoking risk assessment performed?: Yes Alcohol Intake: never Drug use: Never Substance use type: does not use Household members: spouse Number of Children: 2 current occupation: Disabled Do you feel safe at home: Yes Do you feel safe in your relationship?: Yes Additional Social history: pt lives at home with his Exam <EDGARDO Valdovinos - Last Filed: 07/19/22 09:28> Const General: cooperative, ill appearing and lethargic Orientation: alert and oriented x3 HENMT Other: thrush Eyes Pupils: PERRL Resp Effort & Inspection: labored Auscultation: rhonchi Cardio Rate: regular rate Rhythm: regular rhythm Heart Sounds: no murmurs GI Inspection: normal to inspection Skin General skin exam: no rashes or lesions noted Neuro General: patient alert and patient oriented x3 Extrem General: normal to inspection Course <EDGARDO Valdovinos - Last Filed: 07/19/22 09:28> Vital Signs Vital signs: Vital Signs Temperature 37.2 C 07/18/22 13:24 Pulse 93 H 07/18/22 13:24 Blood Pressure 101/58 L 07/18/22 13:24 Pulse Oximetry 92 07/18/22 13:24 Temperature 37.4 C 07/18/22 13:35 Temperature Source Skin 07/18/22 13:35 Pulse 91 H 07/18/22 14:23 Pulse 91 H 07/18/22 14:10 Respiratory Rate 21 07/18/22 14:23 Blood Pressure 100/52 L 07/18/22 14:01 Blood Pressure Mean 62 07/18/22 14:01 Pulse Oximetry 97 07/18/22 14:23 Oxygen Delivery Method Bi-pap 07/18/22 13:54 Oxygen Flow Rate 6 07/18/22 13:35 Fraction of Inspired Oxygen (FIO2) 25 07/18/22 14:22 Pain Level 0 07/18/22 13:24 Lab/Test Results Lab/Test Results: 07/18/22 13:34 Blood Blood Culture - Pending 07/18/22 13:34 Blood Blood Culture - Pending Laboratory Tests Range/Units 07/18/22 07/18/22 07/18/22 13:50 13:50 13:50 WBC (4.4-10.8) 10^3/uL 16.07 H RBC (4.36-5.78) 10^6/uL 3.95 L Hgb (13.5-17.5) g/dL 11.9 L Hct (40.0-50.0) % 37.3 L MCV (80-95) fL 94 MCH (27.0-33.0) pg 30.1 MCHC (32.0-36.0) % 31.9 L RDW (11.8-14.1) % 18.7 H Plt Count (130-400) 10^3/uL 129 L MPV (8.0-11.0) fL 11.5 H Immature Gran % 0.4 Neutrophils % 87.5 Lymphocytes % 3.7 Monocytes % 8.1 Eosinophils % 0.2 Basophils % 0.1 Nucleated RBC % (0.0-0.3) % 0.0 Absolute Neutrophils (1.2-6.7) 10^3/uL 14.06 H Absolute Lymphocytes (1.2-3.4) 10^3/uL 0.59 L Absolute Monocytes (0.1-0.8) 10^3/uL 1.30 H Absolute Eosinophils (0.0-0.7) 10^3/uL 0.03 Absolute Basophils (0.0-0.2) 10^3/uL 0.02 ABG Sample Site ABG pH (7.35-7.45) ABG pCO2 (35-45) mmHg ABG pO2 (80-105) mmHg ABG HCO3 (22-26) mmol/L ABG Total CO2 (23-27) mmol/L ABG O2 Saturation (95-98) % ABG Base Excess (-2-3) mmol/L VBG Lactate (0.6-1.4) mmol/L 1.9 H FiO2 % Sodium (136-145) mmol/L 138 Potassium (3.5-5.1) mmol/L 6.3 H* Chloride (98-107) mmol/L 96 L Carbon Dioxide (21.0-32.0) mmol/L 26.7 Anion Gap (3-11) mmol/L 15.3 H BUN (7-18) mg/dL 107 H* Creatinine (0.70-1.30) mg/dL 5.0 H* Est GFR (CKD-EPI 2020) (mL/min/1.73m2) 11.52 Glucose (74-106) mg/dL 276 H Calcium (8.5-10.1) mg/dL 9.5 Magnesium (1.8-2.4) mg/dL Total Bilirubin (0.2-1.0) mg/dL 0.8 AST (15-37) U/L 14 L ALT (16-63) U/L 12 L Alkaline Phosphatase (46-116) U/L 89 Troponin I (<or=60) ng/L Total Protein (6.4-8.2) g/dL 7.0 Albumin (3.4-5.0) g/dL 2.8 L Urine Color (Yellow) Urine Clarity (Clear) Urine pH (5-8) Ur Specific [place] (1.005-1.025) Urine Protein (Negative) mg/dL Urine Ketones (Negative) mg/dL Urine Blood (Negative) Urine Nitrite (Negative) Urine Bilirubin (Negative) Urine Urobilinogen (Up to 0.2) mg/dL Ur Leukocyte Esterase (Negative) Urine Glucose (Negative) mg/dL COVID-19 Source SARS-CoV-2 (PCR) (Negative) Influenza Type A (PCR) (Negative) Influenza Type B (PCR) (Negative) RSV (PCR) (Negative) Range/Units 07/18/22 07/18/22 07/18/22 13:50 14:14 14:27 WBC (4.4-10.8) 10^3/uL RBC (4.36-5.78) 10^6/uL Hgb (13.5-17.5) g/dL Hct (40.0-50.0) % MCV (80-95) fL MCH (27.0-33.0) pg MCHC (32.0-36.0) % RDW (11.8-14.1) % Plt Count (130-400) 10^3/uL MPV (8.0-11.0) fL Immature Gran % Neutrophils % Lymphocytes % Monocytes % Eosinophils % Basophils % Nucleated RBC % (0.0-0.3) % Absolute Neutrophils (1.2-6.7) 10^3/uL Absolute Lymphocytes (1.2-3.4) 10^3/uL Absolute Monocytes (0.1-0.8) 10^3/uL Absolute Eosinophils (0.0-0.7) 10^3/uL Absolute Basophils (0.0-0.2) 10^3/uL ABG Sample Site Right Brachial ABG pH (7.35-7.45) 7.39 ABG pCO2 (35-45) mmHg 41 ABG pO2 (80-105) mmHg 99 ABG HCO3 (22-26) mmol/L 25 ABG Total CO2 (23-27) mmol/L 23 ABG O2 Saturation (95-98) % 98 ABG Base Excess (-2-3) mmol/L 0 VBG Lactate (0.6-1.4) mmol/L FiO2 % 35 Sodium (136-145) mmol/L Potassium (3.5-5.1) mmol/L Chloride (98-107) mmol/L Carbon Dioxide (21.0-32.0) mmol/L Anion Gap (3-11) mmol/L BUN (7-18) mg/dL Creatinine (0.70-1.30) mg/dL Est GFR (CKD-EPI 2020) (mL/min/1.73m2) Glucose (74-106) mg/dL Calcium (8.5-10.1) mg/dL Magnesium (1.8-2.4) mg/dL 2.2 Total Bilirubin (0.2-1.0) mg/dL AST (15-37) U/L ALT (16-63) U/L Alkaline Phosphatase (46-116) U/L Troponin I (<or=60) ng/L 96 H* Total Protein (6.4-8.2) g/dL Albumin (3.4-5.0) g/dL Urine Color (Yellow) Urine Clarity (Clear) Urine pH (5-8) Ur Specific [place] (1.005-1.025) Urine Protein (Negative) mg/dL Urine Ketones (Negative) mg/dL Urine Blood (Negative) Urine Nitrite (Negative) Urine Bilirubin (Negative) Urine Urobilinogen (Up to 0.2) mg/dL Ur Leukocyte Esterase (Negative) Urine Glucose (Negative) mg/dL COVID-19 Source Nasopharynx SARS-CoV-2 (PCR) (Negative) Negative Influenza Type A (PCR) (Negative) Negative Influenza Type B (PCR) (Negative) Negative RSV (PCR) (Negative) Negative Range/Units 07/18/22 14:35 WBC (4.4-10.8) 10^3/uL RBC (4.36-5.78) 10^6/uL Hgb (13.5-17.5) g/dL Hct (40.0-50.0) % MCV (80-95) fL MCH (27.0-33.0) pg MCHC (32.0-36.0) % RDW (11.8-14.1) % Plt Count (130-400) 10^3/uL MPV (8.0-11.0) fL Immature Gran % Neutrophils % Lymphocytes % Monocytes % Eosinophils % Basophils % Nucleated RBC % (0.0-0.3) % Absolute Neutrophils (1.2-6.7) 10^3/uL Absolute Lymphocytes (1.2-3.4) 10^3/uL Absolute Monocytes (0.1-0.8) 10^3/uL Absolute Eosinophils (0.0-0.7) 10^3/uL Absolute Basophils (0.0-0.2) 10^3/uL ABG Sample Site ABG pH (7.35-7.45) ABG pCO2 (35-45) mmHg ABG pO2 (80-105) mmHg ABG HCO3 (22-26) mmol/L ABG Total CO2 (23-27) mmol/L ABG O2 Saturation (95-98) % ABG Base Excess (-2-3) mmol/L VBG Lactate (0.6-1.4) mmol/L FiO2 % Sodium (136-145) mmol/L Potassium (3.5-5.1) mmol/L Chloride (98-107) mmol/L Carbon Dioxide (21.0-32.0) mmol/L Anion Gap (3-11) mmol/L BUN (7-18) mg/dL Creatinine (0.70-1.30) mg/dL Est GFR (CKD-EPI 2020) (mL/min/1.73m2) Glucose (74-106) mg/dL Calcium (8.5-10.1) mg/dL Magnesium (1.8-2.4) mg/dL Total Bilirubin (0.2-1.0) mg/dL AST (15-37) U/L ALT (16-63) U/L Alkaline Phosphatase (46-116) U/L Troponin I (<or=60) ng/L Total Protein (6.4-8.2) g/dL Albumin (3.4-5.0) g/dL Urine Color (Yellow) Yellow Urine Clarity (Clear) Clear Urine pH (5-8) 7.0 Ur Specific [place] (1.005-1.025) 1.020 Urine Protein (Negative) mg/dL >=300 H Urine Ketones (Negative) mg/dL Negative Urine Blood (Negative) Moderate H Urine Nitrite (Negative) Negative Urine Bilirubin (Negative) Negative Urine Urobilinogen (Up to 0.2) mg/dL 0.2 Ur Leukocyte Esterase (Negative) Small H Urine Glucose (Negative) mg/dL Negative COVID-19 Source SARS-CoV-2 (PCR) (Negative) Influenza Type A (PCR) (Negative) Influenza Type B (PCR) (Negative) RSV (PCR) (Negative) Critical Care Time <EDGARDO Valdovinos - Last Filed: 07/19/22 09:28> Critical Care Time Critical Care Time: Yes Total Critical Care Time: 60 Attestation: Initial request for medical treatments for acute respiratory failure including BiPAP, DuoNebs, fluids secondary to sepsis likely related to his aspiration pneumonia, telemetry monitoring, CT imaging, IV antibiotics, Sign Out <EDGARDO Valdovinos - Last Filed: 07/19/22 09:28> Sign Out Data: Sign Out Comment: pending admission to hospital, comfort measures with palliative care Last updated by Kiera Mathew PA at 07/18/22 17:01
[2022-07-18] MEDS: MORPHine 10 MG/ML VIAL 2 MG IVP (16:27)
[2022-07-18] MEDS: MORPHine 2 MG/ML SYR IVP (18:35)
--- NOTE | 2022-07-18 20:11 | W.PM.HP.N ---
Date of service: 07/18/22 Time of Service: 20:11 Assessment and Plan Assessment and plan (1) Acute respiratory failure with hypoxia: Status: Acute Assessment and plan: Patient is of made a decision to go on TURBO ELECTRIC OPERATOR status as they have opted for hospice care. Patient is a known client of palliative care and therefore palliative care was consulted through the ED department. His of 17 years is indicated that she and Ever just want him to be comfortable and in peace. Until recently Ever had wanted to continue to live and did not want to enter into hospice or go on TURBO ELECTRIC OPERATOR status but his indicated his recent hospitalization and intubation affected their review regarding his quality of life. In light of her request that Ever have a comfortable I have opted to put him on low-dose hydromorphone drip to ease his dyspnea I have ordered atropine drops to help with his excess secretions. I discontinued any orders for vital sign measurements or telemetry monitoring. I am ordering Keppra IV given his prior history of seizures as I feel that if he missed his Keppra and had a seizure this would be most traumatic for his to see him in this fashion. Otherwise all the rest of his routine home medications will not be reordered. Professional time spent interviewing and examining patient, discussion of goals of care with hospital team (care management, nursing and consulting professionals) was 45 minutes. (2) Aspiration pneumonia: Status: Acute (3) ESRD (end stage renal disease) on dialysis: Status: Acute (4) Partial epilepsy: Status: Acute History of Present Illness History of Present Illness Chief Complaint: End-stage renal disease, hypoxemia Narrative: 72-year-old male with a past medical history of atherosclerotic heart disease status post three-vessel bypass graft in March 2016 at [facility] [place] who went on hemodialysis after his bypass graft and has been on hemodialysis ever since. 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 He was discharged on Saturday, July 16, 2022 but was taken to the emergency department at [facility] and was found to [place] after he became more somnolent. After evaluation he was sent home. His last dialysis was on Saturday, July 16, 2022. Today his and the patient's niece got him into the car and took him to the hemodialysis center today he was very somnolent the thought he was just fatigued from his recent hospitalization and because he needed his hemodialysis today. When he got to the hemodialysis center his provider there indicated that he was at the end stages of his kidney failure and he was too unstable to have dialysis today therefore he was directed to the emergency department via EMS. On EMS arrival his blood glucose was 124 his oxygen saturation was only in the 70s and he was hypotensive. On arrival to the emergency department he was on 6 L nasal cannula and his O2 saturation was 92% with a blood pressure 101/58 and a pulse of 93 and he was afebrile at 37.2 Celsius. He initially had an evaluation in the emergency department by the ED personnel and underwent noncontrast CT scan of his chest abdomen pelvis and a head CT scan as well as routine labs. CT of the chest abdomen pelvis showed bilateral lower lobe infiltrates with mucous plugging as well as infiltrates in the upper lobes and a large quantity of fecal material with no evidence of small bowel distention. Head CT showed cerebral atrophy with no acute intracranial process. Labs include a CBC that showed a leukocytosis of 16,000 hemoglobin 11.9 g platelet count 129,000 and a leftward shift in his white cell differential. ABG showed normal pH 7.39 and PCO2 of 41 and PO2 of 99 on FiO2 35%. Blood lactate slightly elevated 1.9. Chemistry panel demonstrated hyperkalemia with a potassium of 6.3 and an anion gap of 15.3 with elevated BUN and creatinine of 107 and creatinine 5.0. His troponin I level was elevated at 96. In the emergency department his hyperkalemia was initially treated with insulin and calcium gluconate and DuoNeb aerosol treatment. He was placed on BiPAP mask. After discussion by the emergency department personnel with the patient's and the patient himself who by this time was arousable and able to speak indicated that he wanted to transition into hospice care. Patient was kept on BiPAP for comfort measures and was given a dose of morphine for his dyspnea. The ED personnel spoke with Lucrecia Haney, see ED's note. PFSH All Active Problems (Updated 07/18/22 @ 20:47 by Valentin Monsalve MD) Acute respiratory failure with hypoxia (Acute) Aspiration pneumonia (Acute) ESRD (end stage renal disease) on dialysis (Acute) On supplemental oxygen by nasal cannula (Acute) COPD (chronic obstructive pulmonary disease) (Chronic) Partial epilepsy (Acute) Chronic renal insufficiency, stage V (Chronic) Medical History ASCVD (arteriosclerotic cardiovascular disease) CHF (congestive heart failure) Depression DM (diabetes mellitus) GERD (gastroesophageal reflux disease) Hyperlipidemia Hypertension Peripheral artery disease Stroke Surgical History Coronary Stent S/P AKA (above knee amputation) bilateral S/P CABG x 3 Tonsillectomy and adenoidectomy Vasectomy Family History Mother Hypertension Hyperlipidemia Heart disease Father Diabetes Social History Smoking/Tobacco Use Status: Former Tobacco Use Smoking risk assessment performed?: Yes Alcohol Intake: never Drug use: Never Substance use type: does not use Household members: spouse Number of Children: 2 current occupation: Disabled Do you feel safe at home: Yes Do you feel safe in your relationship?: Yes Additional Social history: pt lives at home with his Meds Allergies and Home Medications Allergies Allergy/AdvReac Type Severity Reaction Status Date / Time adhesive tape Allergy Unverified 07/18/22 16:22 Iodinated Contrast Media Allergy Unverified 07/18/22 16:22 [Iodinated Contrast Media - IV Dye] tramadol AdvReac Severe seizure Verified 07/18/22 16:22 Home Medications Medication Instructions Recorded Confirmed Type Protonix 40 mg granules 40 mg PO DAILY 04/18/15 07/18/22 History delayed-release packet (pantoprazole) clopidogrel 75 mg tablet 75 mg PO DAILY 04/18/15 07/18/22 History ipratropium 0.5 mg-albuterol 3 mg 3 ml inhalation Q6H PRN 04/18/15 07/18/22 History (2.5 mg base)/3 mL nebulization soln aspirin 81 mg tablet,delayed 81 mg PO DAILY 04/25/19 07/18/22 History release (Aspir-) metoprolol tartrate 50 mg tablet 12.5 mg PO BID 04/25/19 07/18/22 History Humalog U-100 Insulin 100 unit/mL See Rx Instructions subcut TIDWMEAL 05/02/21 07/18/22 History subcutaneous cartridge (insulin lispro) Lantus U-100 Insulin 100 unit/mL See Rx Instructions subcut DAILY 05/02/21 07/18/22 History subcutaneous solution (insulin glargine) atorvastatin 80 mg tablet 80 mg PO QHS 05/02/21 07/18/22 History budesonide-formoterol HFA 160 2 puff inhalation DAILY 05/02/21 07/18/22 History mcg-4.5 mcg/actuation aerosol inhaler clonazepam 0.25 mg disintegrating 0.25 mg PO ONCE PRN seizure #10 05/02/21 07/18/22 Rx tablet tabs fluticasone propionate 50 1 spray intranasal DAILY 05/02/21 07/18/22 History mcg/actuation nasal spray,suspension food supplemt, lactose-reduced See Rx Instructions .Route .COMPLEX 05/02/21 07/18/22 History (High-Protein Nutritional Shake oral liquid) hydromorphone 2 mg tablet 2 mg PO .COMPLEX 05/02/21 02/01/22 History levetiracetam 250 mg tablet 250 mg PO .after dialysis #36 tabs 05/02/21 07/18/22 Rx levetiracetam 500 mg tablet 500 mg PO Q12H #180 tabs 05/02/21 07/18/22 Rx miconazole nitrate 2 % topical 1 applic topical BID 05/02/21 02/01/22 History powder midodrine 10 mg tablet 10 mg PO BID 05/02/21 07/18/22 History ondansetron 4 mg disintegrating 4 mg PO PRN PRN 05/02/21 07/18/22 History tablet polyethylene glycol 3350 17 17 g PO PRN PRN 05/02/21 07/18/22 History gram/dose oral powder (Miralax) senna-docusate sodium tablet See Rx Instructions PO .COMPLEX 05/02/21 07/18/22 History sertraline 100 mg tablet (Zoloft) 100 mg PO DAILY AM 05/02/21 07/18/22 History tamsulosin 0.4 mg capsule 0.8 mg PO HS 05/02/21 07/18/22 History vitamin B complex and vitamin C 1 cap PO DAILY 05/02/21 02/01/22 History no.20-folic acid 1 mg capsule gabapentin 100 mg capsule 1 cap PO TID 02/01/22 07/18/22 History mirabegron 50 mg tablet,extended 1 tab PO DAILY 02/01/22 07/18/22 History release 24 hr (Myrbetriq) nitroglycerin 0.4 mg sublingual See Rx Instructions .Route .COMPLEX 02/01/22 07/18/22 History tablet sevelamer carbonate 2.4 gram oral See Rx Instructions .Route .COMPLEX 02/01/22 07/18/22 History powder packet acetaminophen 325 mg tablet 650 mg PO Q6H PRN 07/18/22 07/18/22 History acetaminophen 650 mg 650 mg PO TID PRN 07/18/22 07/18/22 History tablet,extended release (Tylenol Arthritis Pain) docusate sodium 100 mg capsule 100 mg PO BID 07/18/22 07/18/22 History (Colace) fludrocortisone 0.1 mg tablet 0.1 mg PO DAILY 07/18/22 07/18/22 History starch (thickening) (Diafoods 1 pwd PO TID 07/18/22 07/18/22 History Thick-It oral powder) Exam Narrative Exam Narrative: Patient is more abundant unresponsive to verbal calling. Breathing is labored with moist breath sounds. Lungs with coarse rhonchi diffusely. Heart tones difficult to hear over the breath sounds but sound to be regular. Abdomen is scaphoid nondistended and soft. Patient has a dialysis catheter in the left infraclavicular space with no visible redness or induration. Results Labs 07/18/22 13:50 07/18/22 13:50 Labs: Laboratory Results - last 24 hr 07/18/22 07/18/22 07/18/22 13:50 13:50 13:50 WBC 16.07 H RBC 3.95 L Hgb 11.9 L Hct 37.3 L MCV 94 MCH 30.1 MCHC 31.9 L RDW 18.7 H Plt Count 129 L MPV 11.5 H Immature Gran % 0.4 Neutrophils % 87.5 Lymphocytes % 3.7 Monocytes % 8.1 Eosinophils % 0.2 Basophils % 0.1 Nucleated RBC % 0.0 Absolute Neutrophils 14.06 H Absolute Lymphocytes 0.59 L Absolute Monocytes 1.30 H Absolute Eosinophils 0.03 Absolute Basophils 0.02 ABG Sample Site ABG pH ABG pCO2 ABG pO2 ABG HCO3 ABG Total CO2 ABG O2 Saturation ABG Base Excess VBG Lactate 1.9 H FiO2 Sodium 138 Potassium 6.3 H* Chloride 96 L Carbon Dioxide 26.7 Anion Gap 15.3 H BUN 107 H* Creatinine 5.0 H* Est GFR (CKD-EPI 2020) 11.52 Glucose 276 H Calcium 9.5 Magnesium Total Bilirubin 0.8 AST 14 L ALT 12 L Alkaline Phosphatase 89 Troponin I Total Protein 7.0 Albumin 2.8 L Urine Color Urine Clarity Urine pH Ur Specific [place] Urine Protein Urine Ketones Urine Blood Urine Nitrite Urine Bilirubin Urine Urobilinogen Ur Leukocyte Esterase Urine Glucose COVID-19 Source SARS-CoV-2 (PCR) Influenza Type A (PCR) Influenza Type B (PCR) RSV (PCR) 07/18/22 07/18/22 07/18/22 13:50 14:14 14:27 WBC RBC Hgb Hct MCV MCH MCHC RDW Plt Count MPV Immature Gran % Neutrophils % Lymphocytes % Monocytes % Eosinophils % Basophils % Nucleated RBC % Absolute Neutrophils Absolute Lymphocytes Absolute Monocytes Absolute Eosinophils Absolute Basophils ABG Sample Site Right Brachial ABG pH 7.39 ABG pCO2 41 ABG pO2 99 ABG HCO3 25 ABG Total CO2 23 ABG O2 Saturation 98 ABG Base Excess 0 VBG Lactate FiO2 35 Sodium Potassium Chloride Carbon Dioxide Anion Gap BUN Creatinine Est GFR (CKD-EPI 2020) Glucose Calcium Magnesium 2.2 Total Bilirubin AST ALT Alkaline Phosphatase Troponin I 96 H* Total Protein Albumin Urine Color Urine Clarity Urine pH Ur Specific [place] Urine Protein Urine Ketones Urine Blood Urine Nitrite Urine Bilirubin Urine Urobilinogen Ur Leukocyte Esterase Urine Glucose COVID-19 Source Nasopharynx SARS-CoV-2 (PCR) Negative Influenza Type A (PCR) Negative Influenza Type B (PCR) Negative RSV (PCR) Negative 07/18/22 07/18/22 14:35 16:39 WBC RBC Hgb Hct MCV MCH MCHC RDW Plt Count MPV Immature Gran % Neutrophils % Lymphocytes % Monocytes % Eosinophils % Basophils % Nucleated RBC % Absolute Neutrophils Absolute Lymphocytes Absolute Monocytes Absolute Eosinophils Absolute Basophils ABG Sample Site ABG pH ABG pCO2 ABG pO2 ABG HCO3 ABG Total CO2 ABG O2 Saturation ABG Base Excess VBG Lactate FiO2 Sodium Potassium Chloride Carbon Dioxide Anion Gap BUN Creatinine Est GFR (CKD-EPI 2020) Glucose Calcium Magnesium Total Bilirubin AST ALT Alkaline Phosphatase Troponin I Cancelled Total Protein Albumin Urine Color Yellow Urine Clarity Clear Urine pH 7.0 Ur Specific [place] 1.020 Urine Protein >=300 H Urine Ketones Negative Urine Blood Moderate H Urine Nitrite Negative Urine Bilirubin Negative Urine Urobilinogen 0.2 Ur Leukocyte Esterase Small H Urine Glucose Negative COVID-19 Source SARS-CoV-2 (PCR) Influenza Type A (PCR) Influenza Type B (PCR) RSV (PCR) Last Vital Signs Temp 37.4 C 07/18/22 13:35 Pulse 114 H 07/18/22 18:26 Resp 22 07/18/22 18:26 BP 137/65 07/18/22 17:00 Pulse Ox 86 L 07/18/22 18:26 Time Spent Time spent with Patient: 40-54 minutes Time was spent: preparing to see the patient(eg.review tests), obtaining and/or reviewing separately otained hiistory, ordering medications,tests, procedures, counseling the patient (Counseling the patient's and niece.) and care coordination
--- NOTE | 2022-07-18 22:12 | NUR.NOTE ---
Pt here for comfort care measures. Family in room. Pt in bed, with eyes closed. NAD noted. HOB elevated at 30 degrees. Moderate swelling and bruising noted to BUE. pt w/6L/min O2 per NC. placed orders for comfort measures, awaiting pharmacy to prepare hydromorphone drip. court supervisor to bring Atropine for secretions. Before pharmacy could mix hydromorphone and before this nurse could administer atropine, pt niece came to this nurse and asked me to check the patient. Upon entrance to the room, this nurse noticed pt was not breathing. This nurse verified at 2115, that no pulse, no respirations noted. This was verified by clinical coordinator. Facility protocol followed
--- NOTE | 2022-07-18 23:16 | EXPE_ITS ---
Date of service: 07/18/22 Time of Service: 23:16 Discharge Plan Disposition Patient Disposition: Discharge Details Reason For Visit: Aspiration Pneumonia,BATCH OR CONTINUOUS STILL OPERATOR Admit Date/Time: 07/18/22 18:01 Admit Provider: Valentin Monsalve Attending Provider: Valentin Monsalve Primary Care Provider: Nayla Valles Discharge Data Cause of : Aspiration pneumonia Discharge Date/Time-TO BE ENTERED AT DEPARTURE: 07/18/22 22:50 Discharge Sum: Prov Provider Primary care physician: Nayla Valles Admitting clinician: Valentin Monsalve Attending physician on admission: Valentin Monsalve Consults: 07/18/22 17:01 Palliative Care Consult [CONS] Routine Consultation Status:: Contact made by MD Clarification:: Manage/follow per spec. Reason for consult:: transition to hospice Pronouncing clinician: Ann Marie Hui Discharge Sum: Diag PCOD Cause of : Aspiration pneumonia Contributing Factors (1) Aspiration pneumonia: Contributing factors: Patient presented to [facility] from [facility] in [place], [place] via EMS w/ acute hypoxic respiratory failure. Patient had been recently intubated and treated for aspiration pneumonia, hospitalized at [facility] and discharged on Saturday07/16/22. He presented for his hemodialysis on 07/18/22 and was hypoxic w/ SPO2 in the 70%'s and EMS was called. On arrival to the E.D. his SPO2 was 92% on 6 lpm n.c. w/ BP 101/58 and HR 93 and afebrile 37.2. P atient deteriorated and required BIPAP. CT scan noncontrast of chest, abdomen, pelvis and head were done. Chest CT demonstrated bilateral lower lobe infiltrates R>L and SUSU and RUL infiltrates along w/ debirs in both lower lobe bronchi. CT of abdomen and pelvis were unrmarkable except for large amount fecal matter in colon. CT head demonstrated atrophy but no acute findings. Labs were remarkable for WBC 16,000 w/ 14,000 neutrophils, chemistries were remarkable for K+ of 6.3, BUN 107, creatinine 5.0, troponin 96 . EKG demonstrated sinus rhythm w/ a lot of baseline artifact, R axis deviation, p rolonged QTc. Patient was treated w/ DuoNeb aerosol, given calcium gluconate, dextrose and insulin for his hyperkalemia and DuoNeb and BIPAP for his acute respiratory failure, morphine for his dyspnea and Zosyn for his pneumonia. A discussion was held between [facility] staff and the patient's and the patient regarding his code status and goals of care and the patient indicated that he wanted to go on hospice and elected to be a DNR/DNI. The was in support of this. The patient was placed on BATCH OR CONTINUOUS STILL OPERATOR status and the hospitalist service was requested to admit the patient on BATCH OR CONTINUOUS STILL OPERATOR care. Palliative care was called by the E.D. The patient was admitted to med/surg around 1899 and patient @ 21:15. (2) Acute respiratory failure with hypoxia: Contributing factors: see above (3) ESRD (end stage renal disease) on dialysis: (4) Partial epilepsy: Discharge Sum: Summary Date and Time Admission Date: 07/18/2302/08/23 18:01 Date of : 07/18/22 Time of : 21:15 Summary Details: see above Additional Data Confirmation of as documented by pronouncing clinician: no pulse, no respirations, no heart sounds and pupils fixed and dilated Family: at bedside (, niece) Attending/PCP notified?: Yes Attending Physician: Valentin Monsalve, Valentin Was code activated?: No Autopsy requested?: No driver's license examiner notified?: No Organ bank notified?: Yes Advance directives: No Hospice patient?: No
== END 2022-07-18 22:50 | disposition expired | DRG 177 ==
LOC: ER 18:03 → MS 18:38
PROVIDERS: Physician Assistant; Admitting Provider Internal Medicine; Emergency Provider Registered Nurse Emergency; PCP Internal Medicine; Visit Provider Internal Medicine
DX: J69.0 Pneumonitis due to inhalation of food and vomit (principal); J96.01 Acute respiratory failure with hypoxia; N18.6 End stage renal disease; G40.109 Localization-related (focal) (partial) symptomatic epilepsy and epileptic syndromes with simple partial seizures, not intractable, without status epilepticus; I13.2 Hypertensive heart and chronic kidney disease with heart failure and with stage 5 chronic kidney disease, or end stage renal disease; Z99.2 Dependence on renal dialysis; E87.5 Hyperkalemia; Z51.5 Encounter for palliative care; J44.9 Chronic obstructive pulmonary disease, unspecified; I25.10 Atherosclerotic heart disease of native coronary artery without angina pectoris; I50.9 Heart failure, unspecified; F32.A Depression, unspecified; K21.9 Gastro-esophageal reflux disease without esophagitis; E78.5 Hyperlipidemia, unspecified; I73.9 Peripheral vascular disease, unspecified; Z86.73 Personal history of transient ischemic attack (TIA), and cerebral infarction without residual deficits; Z95.5 Presence of coronary angioplasty implant and graft; Z89.612 Acquired absence of left leg above knee; Z89.611 Acquired absence of right leg above knee; Z95.1 Presence of aortocoronary bypass graft; E10.22 Type 1 diabetes mellitus with diabetic chronic kidney disease
CPT/HCPCS: 36416; 71250; 80053; 82805; 82962; 87040; 87637; 93005; 96361; 96365; 96375; 99291; 36600; 70450; 74176; 81003; 83605; 83735; 84484; 85025; 93010; 94640; 99222; J0612; J1941; J2270; J2543; J7620